=== PATIENT | female | born 1970 | race Caucasian/White ===

== ENCOUNTER 2016-11-04 04:55 | Emergency (ER) | payer OTHER ==
--- NOTE | 2016-11-04 05:49 | ED NURSING NOTES ---
Clinical Report - Nurses [facility] [address] [place] [address] 11/04/2016 4:56 Patient: PATY MARTÍNEZ TRIAGE Triage time 05:02. Acuity: LEVEL 4. Chief Complaint: BACK PAIN. 05:07. Alert. SEPSIS SCREEN: Sepsis Screen. Negative (no infection suspected/documented). --05:08 Shashank Wilson R.N. 05:02 11/04/16. BP: 154/77. HR: 83. RR: 17. O2 saturation: 98% on room air. Temp: 98.3 F (oral). Pain level now: 04/02. --05:08 Shashank Wilson R.N. Weight: 136 kg stated. Height/Length: 62 inches Per Patient. BMI: 54.9. --05:06 Shashank Wilson R.N. Medications None. --05:03 Shashank Wilson R.N. Medication/allergy information source: the patient. --05:08 Shashank Wilson R.N. Allergies CONTRAST DYE. --05:03 Shashank Wilson R.N. History Arrived by private vehicle. Historian: patient. Accompanied by family. Primary physician (Abdirashid). Onset. (about 0200). ( Patient reports waking up with left sided low back pain). No history of recent trauma. Treatment MEDICAL TRANSPORT SPECIALIST: None. PAST MEDICAL HX: Tetanus status: up-to-date. Immunizations: up-to-date. The patient is post-menopausal. SOCIAL HX: Former smoker, end date 1996. No alcohol use or drug use. No infectious disease exposure. ABUSE ASSESSMENT: No report of abuse. FALL RISK ASSESSMENT: Fall risk assessment completed. No fall risk identified. NUTRITIONAL RISK ASSESSMENT: The nutritional risk assessment revealed no deficiencies. FUNCTIONAL ASSESSMENT: Functional assessment: no impairments noted. LEARNING NEEDS ASSESSMENT: The learning needs assessment revealed no barriers. SKIN INTEGRITY ASSESSMENT: Skin integrity risk assessment completed. No skin integrity risk identified. --05:08 Shashank Wilson R.N. PROBLEMS: Bronchitis. Abscess. DVT - Deep Venous Thrombosis. UTI - Urinary Tract Infection. --05:04 Shashank Wilson R.N. Obesity. --05:07 Shashank Wilson R.N. ADDITIONAL SURGERIES: Bariatric Surgery. Hip Surgery. Knee Surgery. --05:04 Shashank Wilson R.N. Interventions ID band on patient. To treatment room. --05:08 Shashank Wilson R.N. PHYSICAL ASSESSMENT 05:08. To room via wheelchair. GENERAL / NEURO / PSYCH: Alert. Oriented X 4. RESPIRATORY: Respirations not labored. EXTREMITIES: Sensation intact in extremities. ROM of extremities within normal limits. --05:08 Shashank Wilson R.N. NURSING PROGRESS NOTES 05:08. Two patient identifiers checked. Call light placed in reach. Bed placed in lowest position. Brakes of bed on. Patient ready for evaluation- chart flagged. --05:08 Shashank Wilson R.N. 05:25 11/04/2016 Zofran ODT (Ondansetron) PO 4 mg given. Allergies verified and confirmed 5 rights. --05:29 Shsahank Wilson R.N. 05:27 11/04/2016 Toradol (Ketorolac Tromethamine) IM 60 mg given. Given in the right ventral gluteus. Allergies verified and confirmed 5 rights. --05:29 Shashank Wilson R.N. DISPOSITION / DISCHARGE 06:09 11/04/16. Condition at departure: unchanged. No learning barriers present. Discharge instructions provided and reviewed with the patient. Reviewed medication(s) side effects, precautions, dosing and course information. Prescription(s) given to the patient. Activity restrictions (light lifting) reviewed (over 10 pounds). Patient verbalized understanding. Written instructions provided in Kinyarwanda. The patient was discharged by the physician. She was discharged home and accompanied by family. She left the Emergency Department ambulatory and via private vehicle. Dining Room Coordinator driving. --06:09 Amparo Casiano R.N. 06:06 11/04/16. BP: 128/76 (regular adult cuff) taken on the left arm. HR: 84. RR: 20. O2 saturation: 100% on room air. Temp: 100.1 F (oral). Pain level now: 5/10. Additional comments: low back. --06:09 Amparo Casiano R.N. 06:09 11/04/16. ( Dr Olivo knows about 100.1 and ok to IA). --06:09 Amparo Casiano R.N. Departure time: 06:15 Nov 04 2016. --06:17 Amparo Casiano R.N. Locked/Released at 11/04/2016 6:18 by Amparo Casiano R.N.
--- NOTE | 2016-11-04 05:49 | ED NURSING NOTES ---
Clinical Report - Nurses [facility] [address] [place] [address] 11/04/2016 4:56 Patient: PAYT MARTÍNEZ TRIAGE Triage time 05:02. Acuity: LEVEL 4. Chief Complaint: BACK PAIN. 05:07. Alert. SEPSIS SCREEN: Sepsis Screen. Negative (no infection suspected/documented). --05:08 Shashank Wilson R.N. 05:02 11/04/16. BP: 154/77. HR: 83. RR: 17. O2 saturation: 98% on room air. Temp: 98.3 F (oral). Pain level now: 04/02. --05:08 Shashank Wilson R.N. Weight: 136 kg stated. Height/Length: 62 inches Per Patient. BMI: 54.9. --05:06 Shashank Wilson R.N. Medications None. --05:03 Shashank Wilson R.N. Medication/allergy information source: the patient. --05:08 Shahsank Wilson R.N. Allergies CONTRAST DYE. --05:03 Shashank Wilson R.N. History Arrived by private vehicle. Historian: patient. Accompanied by family. Primary physician (Abdirashid). Onset. (about 0200). ( Patient reports waking up with left sided low back pain). No history of recent trauma. Treatment WIRE STEWARD: None. PAST MEDICAL HX: Tetanus status: up-to-date. Immunizations: up-to-date. The patient is post-menopausal. SOCIAL HX: Former smoker, end date 1996. No alcohol use or drug use. No infectious disease exposure. ABUSE ASSESSMENT: No report of abuse. FALL RISK ASSESSMENT: Fall risk assessment completed. No fall risk identified. NUTRITIONAL RISK ASSESSMENT: The nutritional risk assessment revealed no deficiencies. FUNCTIONAL ASSESSMENT: Functional assessment: no impairments noted. LEARNING NEEDS ASSESSMENT: The learning needs assessment revealed no barriers. SKIN INTEGRITY ASSESSMENT: Skin integrity risk assessment completed. No skin integrity risk identified. --05:08 Shashank Wilson R.N. PROBLEMS: Bronchitis. Abscess. DVT - Deep Venous Thrombosis. UTI - Urinary Tract Infection. --05:04 Shashank Wilson R.N. Obesity. --05:07 Shashank Wilson R.N. ADDITIONAL SURGERIES: Bariatric Surgery. Hip Surgery. Knee Surgery. --05:04 Shashank Wilson R.N. Interventions ID band on patient. To treatment room. --05:08 Shashank Wilson R.N. PHYSICAL ASSESSMENT 05:08. To room via wheelchair. GENERAL / NEURO / PSYCH: Alert. Oriented X 4. RESPIRATORY: Respirations not labored. EXTREMITIES: Sensation intact in extremities. ROM of extremities within normal limits. --05:08 Shashank Wilson R.N. NURSING PROGRESS NOTES 05:08. Two patient identifiers checked. Call light placed in reach. Bed placed in lowest position. Brakes of bed on. Patient ready for evaluation- chart flagged. --05:08 Shashank Wilson R.N. 05:25 11/04/2016 Zofran ODT (Ondansetron) PO 4 mg given. Allergies verified and confirmed 5 rights. --05:29 Shashank Wilson R.N. 05:27 11/04/2016 Toradol (Ketorolac Tromethamine) IM 60 mg given. Given in the right ventral gluteus. Allergies verified and confirmed 5 rights. --05:29 Shashank Wilson R.N. DISPOSITION / DISCHARGE 06:09 11/04/16. Condition at departure: unchanged. No learning barriers present. Discharge instructions provided and reviewed with the patient. Reviewed medication(s) side effects, precautions, dosing and course information. Prescription(s) given to the patient. Activity restrictions (light lifting) reviewed (over 10 pounds). Patient verbalized understanding. Written instructions provided in Bulgarian. The patient was discharged by the physician. She was discharged home and accompanied by family. She left the Emergency Department ambulatory and via private vehicle. [employer] Middleware Architect driving. --06:09 Amparo Casiano R.N. 06:06 11/04/16. BP: 128/76 (regular adult cuff) taken on the left arm. HR: 84. RR: 20. O2 saturation: 100% on room air. Temp: 100.1 F (oral). Pain level now: 5/10. Additional comments: low back. --06:09 Amparo Casiano R.N. 06:09 11/04/16. ( Dr Olivo knows about 100.1 and ok to [place]). --06:09 Amparo Casiano R.N. Departure time: 06:15 Nov 04 2016. --06:17 Amparo Casiano R.N. Locked/Released at 11/04/2016 6:18 by Amparo aCsiano R.N.
--- NOTE | 2016-11-04 05:49 | ED CLINICAL REPORT ---
Clinical Report - Physicians/Mid Levels [facility] [address] [place] [address] 11/04/2016 4:56 Patient: PATY MARTÍNEZ Time Seen: 05:03; initial patient contact. Arrived- By private vehicle. Historian- patient. HISTORY OF PRESENT ILLNESS Chief Complaint: BACK PAIN. Onset was today and it is still present. It was abrupt in onset and has been constant. It is described as being moderate in degree and in the area of the left lower lumbar spine and lower lumbar spine. The quality is noted to be sharp. No radiation. Modifying factors- worsened by bending over and lifting. Not relieved by anything. No bladder dysfunction, bowel dysfunction, sensory loss or motor loss. Patient denies an injury but injury to the head or neck. Similar symptoms previously: None. Recent medical care: Not recently seen/assessed. REVIEW OF SYSTEMS No fever, difficulty with urination or vomiting. She has had chills and nausea. All systems otherwise negative, except as recorded above. PAST HISTORY Bronchitis. Abscess. DVT - Deep Venous Thrombosis. UTI - Urinary Tract Infection. Obesity. SURGERIES: Bariatric Surgery. Hip Surgery. Knee Surgery. SOCIAL HISTORY Former smoker. No alcohol use or drug use. ADDITIONAL NOTES The nursing notes have been reviewed. PHYSICAL EXAM Vital Signs: 11/04/2016 05:02 BP: 154/77. HR: 83. RR: 17. O2 saturation: 98%. Temp: 98.3 F. Pain level now: 10. Have been reviewed. Hypertensive. Heart rate normal. Respiratory rate normal. Temperature normal. Oxygen saturation normal. Appearance: Alert. No acute distress. Back: Moderate muscle spasm of the left posterior back. Moderate soft tissue tenderness in the left lower lumbar area. Mildly limited ROM in the back- in the lumbar spine: decreased flexion. No vertebral point tenderness. Neuro: Oriented X 3. Mood/affect normal. No motor deficit. No sensory deficit. Straight leg raising: negative on the right and negative on the left. PROGRESS AND PROCEDURES Disposition: Discharged home in good and improved condition. Condition: good. CLINICAL IMPRESSION Acute lumbar strain. INSTRUCTIONS No lifting greater than 10 lbs. Your Current Medications: CONTINUE TAKING THE FOLLOWING MEDICATIONS: None*. Prescription Medications: Baclofen 10 mg: take 1 orally every 8 hours. Dispense twenty (20). No refills. Diclofenac 50 mg tablets: take 1 tablet orally every 8 hours as needed for pain or stiffness. Dispense thirty (30). No refill. Follow-up: Follow up with your doctor in about two days. Call for an appointment. Screening today revealed the patient's blood pressure to be in the hypertensive range. The patient should follow up with a primary care provider for blood pressure management. (Electronically signed by Cheko Olivo Dr. 11/04/2016 6:42)
--- NOTE | 2016-11-04 05:49 | ED ORDER SUMMARY ---
..... Patient: PATY MARTÍNEZ OrderSheet [facility] VisitID: [id number] [address] [place] [address] 46y, F Registration Date/Time: 11/04/2016 ORDER SHEET Weight: 136.0 kg (stated) Allergies: CONTRAST DYE GENERAL ORDERS: MEDICATION ORDERS: Toradol IM 60 mg (NOW) (05:16 11/04/2016 Rick Westbrook) (Ack 5:23 JQuivey R.N.) (5:29 JQuivey R.N.) Zofran ODT PO 4 mg (NOW) (05:24 11/04/2016 JQuivey R.N. verbal order read back to Rick Westbrook) (Ack 5:24 JQuivey R.N.) (5:29 JQuivey R.N.) IV FLUIDS: ORDER SHEET NOTES: [Electronically signed by Amparo Casiano R.N. (06:18 11/04/2016)] [Electronically signed by Cheko Olivo Dr. (06:42 11/04/2016)] [Electronically locked/signed by Amparo Casiano R.N. (06:18 11/04/2016)]
--- NOTE | 2016-11-04 05:49 | ED ORDER SUMMARY ---
..... Patient: PATY MARTÍNEZ OrderSheet [facility] VisitID: [id number] [address] [place] [address] 46y, F Registration Date/Time: 11/04/2016 ORDER SHEET Weight: 136.0 kg (stated) Allergies: CONTRAST DYE GENERAL ORDERS: MEDICATION ORDERS: Toradol IM 60 mg (NOW) (05:16 11/04/2016 Rick Westbrook) (Ack 5:23 JQuivey R.N.) (5:29 JQuivey R.N.) Zofran ODT PO 4 mg (NOW) (05:24 11/04/2016 JQuivey R.N. verbal order read back to Rick Westbrook) (Ack 5:24 JQuivey R.N.) (5:29 JQuivey R.N.) IV FLUIDS: ORDER SHEET NOTES: [Electronically signed by Amparo Casiano R.N. (06:18 11/04/2016)] [Electronically signed by Cheko Olivo Dr. (06:42 11/04/2016)] [Electronically locked/signed by Amparo Casiano R.N. (06:18 11/04/2016)]
--- NOTE | 2016-11-04 05:49 | ED CLINICAL REPORT ---
Clinical Report - Physicians/Mid Levels [facility] [address] [place] [address] 11/04/2016 4:56 Patient: PATY MARTÍNEZ Time Seen: 05:03; initial patient contact. Arrived- By private vehicle. Historian- patient. HISTORY OF PRESENT ILLNESS Chief Complaint: BACK PAIN. Onset was today and it is still present. It was abrupt in onset and has been constant. It is described as being moderate in degree and in the area of the left lower lumbar spine and lower lumbar spine. The quality is noted to be sharp. No radiation. Modifying factors- worsened by bending over and lifting. Not relieved by anything. No bladder dysfunction, bowel dysfunction, sensory loss or motor loss. Patient denies an injury but injury to the head or neck. Similar symptoms previously: None. Recent medical care: Not recently seen/assessed. REVIEW OF SYSTEMS No fever, difficulty with urination or vomiting. She has had chills and nausea. All systems otherwise negative, except as recorded above. PAST HISTORY Bronchitis. Abscess. DVT - Deep Venous Thrombosis. UTI - Urinary Tract Infection. Obesity. SURGERIES: Bariatric Surgery. Hip Surgery. Knee Surgery. SOCIAL HISTORY Former smoker. No alcohol use or drug use. ADDITIONAL NOTES The nursing notes have been reviewed. PHYSICAL EXAM Vital Signs: 11/04/2016 05:02 BP: 154/77. HR: 83. RR: 17. O2 saturation: 98%. Temp: 98.3 F. Pain level now: 10. Have been reviewed. Hypertensive. Heart rate normal. Respiratory rate normal. Temperature normal. Oxygen saturation normal. Appearance: Alert. No acute distress. Back: Moderate muscle spasm of the left posterior back. Moderate soft tissue tenderness in the left lower lumbar area. Mildly limited ROM in the back- in the lumbar spine: decreased flexion. No vertebral point tenderness. Neuro: Oriented X 3. Mood/affect normal. No motor deficit. No sensory deficit. Straight leg raising: negative on the right and negative on the left. PROGRESS AND PROCEDURES Disposition: Discharged home in good and improved condition. Condition: good. CLINICAL IMPRESSION Acute lumbar strain. INSTRUCTIONS No lifting greater than 10 lbs. Your Current Medications: CONTINUE TAKING THE FOLLOWING MEDICATIONS: None*. Prescription Medications: Baclofen 10 mg: take 1 orally every 8 hours. Dispense twenty (20). No refills. Diclofenac 50 mg tablets: take 1 tablet orally every 8 hours as needed for pain or stiffness. Dispense thirty (30). No refill. Follow-up: Follow up with your doctor in about two days. Call for an appointment. Screening today revealed the patient's blood pressure to be in the hypertensive range. The patient should follow up with a primary care provider for blood pressure management. (Electronically signed by Cheko Olivo Dr. 11/04/2016 6:42)
--- NOTE | 2016-11-04 06:42 | ED MED RECONCILIATION SUMMARY ---
Patient: PTAY MARTÍNEZ Medication Reconciliation Report [facility] VisitID: [id number] [address] [place] [address] 46y, F Registration Date/Time: 11/04/2016 Weight: 136.0 kg Height/Length: 62 in. BMI: 54.9 ALLERGIES: CONTRAST DYE The patient's Home Medications are listed below: NONE. The source(s) of the original Home Medication information: patient The following Medications were given to the patient in the Emergency Department: Zofran ODT [PO] PO 4 mg, administered: 11/04/2016 5:25:00 AM Toradol [IM] IM 60 mg, administered: 11/04/2016 5:27:00 AM The following Medications were prescribed to the patient: Baclofen 10 mg: take 1 orally every 8 hours. Dispense twenty (20). No refills. -- Cheko Olivo Dr. Diclofenac 50 mg tablets: take 1 tablet orally every 8 hours as needed for pain or stiffness. Dispense thirty (30). No refill. -- Cheko Olivo Dr.
--- NOTE | 2016-11-04 06:42 | ED MAR SUMMARY ---
..... Medication Administration Record [facility] [address] [place] [address] Patient: PATY MARTÍNEZ Visit ID: [id number] 46y, F Weight: 136.0 kg Height/Length: 62 in BMI: 54.9 ALLERGIES: CONTRAST DYE Given 05:25 11/04/2016 Shashank Wilson, R.N. Medication Administered: ZOFRAN ODT [PO] (ONDANSETRON), Dose: 4 mg PO. Medication Ordered: Zofran ODT PO 4 mg (NOW). Given 05:27 11/04/2016 Shashank Wilson, R.N. Medication Administered: TORADOL [IM] (KETOROLAC TROMETHAMINE), Dose: 60 mg IM. Medication Ordered: Toradol IM 60 mg (NOW).
--- NOTE | 2016-11-04 06:42 | ED MED RECONCILIATION SUMMARY ---
Patient: PATY MARTÍNEZ Medication Reconciliation Report [facility] VisitID: [id number] [address] [place] [address] 46y, F Registration Date/Time: 11/04/2016 Weight: 136.0 kg Height/Length: 62 in. BMI: 54.9 ALLERGIES: CONTRAST DYE The patient's Home Medications are listed below: NONE. The source(s) of the original Home Medication information: patient The following Medications were given to the patient in the Emergency Department: Zofran ODT [PO] PO 4 mg, administered: 11/04/2016 5:25:00 AM Toradol [IM] IM 60 mg, administered: 11/04/2016 5:27:00 AM The following Medications were prescribed to the patient: Baclofen 10 mg: take 1 orally every 8 hours. Dispense twenty (20). No refills. -- Cheko Olivo Dr. Diclofenac 50 mg tablets: take 1 tablet orally every 8 hours as needed for pain or stiffness. Dispense thirty (30). No refill. -- Cheko Olivo Dr.
--- NOTE | 2016-11-04 06:42 | ED MAR SUMMARY ---
..... Medication Administration Record [facility] [address] [address] Patient: PATY MARTÍNEZ Visit ID: [id number] 46y, F Weight: 136.0 kg Height/Length: 62 in BMI: 54.9 ALLERGIES: CONTRAST DYE Given 05:25 11/04/2016 Shashank Wilson, R.N. Medication Administered: ZOFRAN ODT [PO] (ONDANSETRON), Dose: 4 mg PO. Medication Ordered: Zofran ODT PO 4 mg (NOW). Given 05:27 11/04/2016 Shashank Wilson, R.N. Medication Administered: TORADOL [IM] (KETOROLAC TROMETHAMINE), Dose: 60 mg IM. Medication Ordered: Toradol IM 60 mg (NOW).
--- NOTE | 2016-11-04 06:42 | ED DISCHARGE INSTRUCTIONS ---
Patient: PATY MARTÍNEZ General Instructions [facility] VisitID: [id number] [place] [address] 46y, F Registration Date/Time: 11/04/2016 Acute lumbar strain. INSTRUCTIONS No lifting greater than 10 lbs. Your Current Medications: CONTINUE TAKING THE FOLLOWING MEDICATIONS: None*. Prescription Medications: Baclofen 10 mg: take 1 orally every 8 hours. Dispense twenty (20). No refills. Diclofenac 50 mg tablets: take 1 tablet orally every 8 hours as needed for pain or stiffness. Dispense thirty (30). No refill. Follow-up: Follow up with your doctor in about two days. Call for an appointment. Screening today revealed the patient's blood pressure to be in the hypertensive range. The patient should follow up with a primary care provider for blood pressure management. ADDITIONAL INFORMATION Back Pain [Acute Or Chronic] Back pain is usually caused by an injury to the muscles or ligaments of the spine. Sometimes the disks that separate each bone in the spine may bulge and cause pain by pressing on a nearby nerve. Back pain may also appear after a sudden twisting/bending force (such as in a car accident), after a simple awkward movement, or lifting something heavy with poor body positioning. In either case, muscle spasm is often present and adds to the pain. Acute back pain usually gets better in one to two weeks. Back pain related to disk disease, arthritis in the spinal joints or spinal stenosis (narrowing of the spinal canal) can become chronic and last for months or years. Unless you had a physical injury (for example, a car accident or fall) X-rays are usually not ordered for the initial evaluation of back pain. If pain continues and does not respond to medical treatment, x-rays and other tests may be performed at a later time. Home Care: You may need to stay in bed the first few days. But, as soon as possible, begin sitting or walking to avoid problems with prolonged bed rest (muscle weakness, worsening back stiffness and pain, blood clots in the legs). When in bed, try to find a position of comfort. A firm mattress is best. Try lying flat on your back with pillows under your knees. You can also try lying on your side with your knees bent up towards your chest and a pillow between your knees. Avoid prolonged sitting. This puts more stress on the lower back than standing or walking. During the first two days after injury, apply an ICE PACK to the painful area for 20 minutes every 2-4 hours. This will reduce swelling and pain. HEAT (hot shower, hot bath or heating pad) works well for muscle spasm. You can start with ice, then switch to heat after two days. Some patients feel best alternating ice and heat treatments. Use the one method that feels the best to you. You may use acetaminophen (Tylenol) or ibuprofen (Motrin, Advil) to control pain, unless another pain medicine was prescribed. [NOTE: If you have chronic liver or kidney disease or ever had a stomach ulcer or GI bleeding, talk with your doctor before using these medicines.] Be aware of safe lifting methods and do not lift anything over 15 pounds until all the pain is gone. Follow Up with your doctor or this facility if your symptoms do not start to improve after one week. Physical therapy may be needed. [NOTE: If X-rays were taken, they will be reviewed by a radiologist. You will be notified of any new findings that may affect your care.] Get Prompt Medical Attention if any of the following occur: Pain becomes worse or spreads to your legs Weakness or numbness in one or both legs Loss of bowel or bladder control Numbness in the groin or genital area You have been given the following additional information: Back Pain (Acute Or Chronic) No lifting greater than 10 lbs. (Electronically signed by Cheko Olivo Dr. 11/04/2016 6:42)
== END 2016-11-04 06:15 | disposition home or self-care (01) ==
LOC: ED SRH 04:55
DX: S39.012A Strain of muscle, fascia and tendon of lower back, initial encounter (principal); X58.XXXA Exposure to other specified factors, initial encounter; Y93.9 Activity, unspecified; Y92.9 Unspecified place or not applicable; Y99.9 Unspecified external cause status

== ENCOUNTER 2016-11-05 19:46 | Inpatient (IN) | payer OTHER ==
[~2016-11-05] VITALS: Ht 157.5 cm; Wt 117.1 kg
--- NOTE | 2016-11-05 22:13 | ED ORDER SUMMARY ---
..... Patient: PATY MARTÍNEZ OrderSheet [facility] VisitID: [id number] [place] [address] 46y, F Registration Date/Time: 11/05/2016 ORDER SHEET Weight: 113.3 kg Allergies: CONTRAST DYE GENERAL ORDERS: CBC w Diff Urgent (20:10 11/05/2016 TBowen R.N. per protocol) (20:22 TBowen R.N.) CMP Urgent (20:11/05/2016 TBowen R.N. per protocol) (20:22 TBowen R.N.) UA-Culture if indicated Urgent (20:11/05/2016 TBowen R.N. per protocol) (20:22 TBowen R.N.) Chest 2V Urgent (20:26 11/05/2016 Gordo WOOD) (20:51 MCampbell) Blood Culture (No) (N/A) Urgent (20:26 11/05/2016 Gordo WOOD) (20:38 TBowen R.N.) CRP Urgent (20:40 11/05/2016 Gordo WOOD) (20:53 TBowen R.N.) Lactate, Serum Urgent (20:40 11/05/2016 Gordo WOOD) (20:53 TBowen R.N.) PCT (Procalcitonin) Urgent (20:40 11/05/2016 Gordo WOOD) (20:53 TBowen R.N.) CT Abd/Pel w Cont (Yes) (1.0) Urgent (22:01 11/05/2016 Gordo WOOD) (Ack 22:13 Zachariah) (Cancelled: [id number] Gordo WOOD) Urine Drug Screen Urgent (22:05 11/05/2016 Gordo WOOD) (Ack 22:13 Zachariah) (23:22 MCook R.N.) ABG (G) Urgent (22:21 11/05/2016 Gordo WOOD) (Ack 22:44 Zachariah) (23:30 MCook R.N.) CT Abd/Pel wo Cont Urgent (22:43 11/05/2016 Gordo WOOD) (Ack 22:44 Zachariah) (23:06 MCampbell) Rapid Influenza Screen (Nasal Pharyngeal) (swab) Urgent (22:45 11/05/2016 Gordo WOOD) (Ack 23:02 Zachariah) (23:30 MCjoek R.N.) Lipase Urgent (22:48 11/05/2016 Gordo WOOD) (Ack 23:02 Zachariah) (23:22 MCook R.N.) MEDICATION ORDERS: Tylenol PO 1,000 mg (NOW) (20:26 11/05/2016 Gordo WOOD) (20:39 TBowen R.N.) IV FLUIDS: IV NS : initial bolus none -, then 500 mL/hr for 4h (NOW); Routine (20:26 11/05/2016 Gordo WOOD) (20:39 TBowen R.N.) Levaquin IV 750 mg/150 mL (NOW) (20:40 11/05/2016 Gordo WOOD) (21:03 TBowen R.N.) Vancomycin IV 25 mg/kg (NOW) (20:55 11/05/2016 Gordo WOOD) (Ack 21:30 TBowen R.N.) (22:31 TBowen R.N.) Zofran IV 4 mg (NOW) (23:47 11/05/2016 Mustapha WOOD) (23:52 MCook R.N.) IV NS : initial bolus 1000 mL (1000 mL/hr), then none - for X1 (NOW) (23:52 11/05/2016 MCook R.N. verbal order read back to Gordo WOOD) (23:53 MCook R.N.) ORDER SHEET NOTES: [Electronically signed by Shashank Wilson R.N. (03:27 11/06/2016)] [Electronically signed by Lonnie Khan MD (20:41 11/06/2016)] [Electronically locked/signed by Shashank Wilson R.N. (03:27 11/06/2016)]
--- NOTE | 2016-11-05 22:13 | ED CLINICAL REPORT ---
Clinical Report - Physicians/Mid Levels [facility] [address] [place] [address] 11/05/2016 19:45 Patient: PATY MARTÍNEZ Time Seen: 20:30. Arrived- By private vehicle. Historian- patient. CPT: Critical care < 74 min plus (#[id number]) and 30-74 min plus (#[id number]). HISTORY OF PRESENT ILLNESS Chief Complaint: FLANK PAIN. 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 and is still present. It is described as "pain" and it is described as located in the right flank, the left flank and the left side of the back. At its maximum, severity described as moderate. When seen in the E.D., severity described as moderate. Modifying factors. Not worsened by anything. Not relieved by anything. The patient has had nausea. Similar symptoms previously: None. Recent medical care: The patient was seen recently at this facility in the emergency department (2 days ago). Seen for back pain only. Diagnosis: (back strain.). REVIEW OF SYSTEMS No constipation, black stools, hematemesis, difficulty with urination or pain with urination. No urinary frequency, sore throat or throat, chest pain or difficulty breathing. No cough, joint pain, skin rash or easy bruising. The patient has had fever, chills, back pain, weakness, and diabetic symptoms. She has had difficulty walking. All systems otherwise negative, except as recorded above. PAST HISTORY Bronchitis. Abscess. DVT - Deep Venous Thrombosis. UTI - Urinary Tract Infection. Obesity. SURGERIES: Bariatric Surgery. Hip Surgery. Knee Surgery. SOCIAL HISTORY Never smoker. Occasional alcohol use. No drug use. ADDITIONAL NOTES The nursing notes have been reviewed. PHYSICAL EXAM Vital Signs: 11/05/2016 20:06 BP: 149/86. HR: 118. RR: 22. O2 saturation: 100%. Temp: 103.1 F. Pain level now: 10/10. Appearance: Alert. Appears to be in pain. Patient in moderate distress. Eyes: Eyes normal inspection. ENT: Nose normal. Dry mucous membranes present. No pharyngeal erythema. Neck: Normal inspection. Neck supple. No carotid bruit, lymphadenopathy or meningeal signs. CVS: Tachycardia. Heart sounds normal. Pulses normal. Respiratory: No respiratory distress. Breath sounds normal. Chest nontender. Abdomen: Soft and nontender. Bowel sounds normal. Obese. Back: Moderate CVA tenderness on the right and left. Skin: Skin warm. Normal skin color. No rash. Extremities: Extremities exhibit normal ROM. No calf tenderness. No lower extremity edema. Neuro: Oriented X 3. No motor deficit. No sensory deficit. LABS, X-RAYS, AND EKG Chest X-ray: (Infiltrate ARLENE and left base.). Views: AP (portable). Technique: good. The X-rays were independently viewed by me and interpreted contemporaneously by me. A comparison with prior films reveals that the findings are new. Laboratory Tests: UA-Culture if indicated: (SATISH: 11/05/2016 20:00) ( [facility] 11/05/2016 21:11) Final results Test Result Flag Units (Reference) URINE COLOR YELLOW URINE APPEARANCE SL CLOUDY URINE GLUCOSE 3+ (NEGATIVE) URINE BILIRUBIN NEGATIVE (NEGATIVE) URINE KETONE NEGATIVE (NEGATIVE) URINE SPECIFIC GRAVITY 1.025 (1.010-1.030) URINE PH 5.5 (5.0-8.0) URINE PROTEIN 1+ (NEGATIVE) URINE UROBILINOGEN 1.0 EU/dL (0.2-1.0) URINE NITRITE NEGATIVE (NEGATIVE) URINE BLOOD 1+ (NEGATIVE) URINE LEUK ESTERASE NEGATIVE (NEGATIVE) URINE RBC RARE rbc/hpf (0-1) URINE WBC 0-1 wbc/hpf (0-1) URINE EPITHELIAL CELLS 0-1 EPI/hpf (0-5) URINE BACTERIA NONE SEEN (NONE SEEN) URINE COMMENT CULT NOT INDICATED 1+ AMORPHOUSURINE CULTURES ARE SET-UP BASED ON THE FOLLOWING CRITERIA:POSITIVE NITRITEPOSITIVE LEUKOCYTE ESTERASEGREATER THAN 10 WHITE BLOOD CELLSMODERATE (2+) OR GREATER BACTERIA CBC w Diff: (STAISH: 11/05/2016 20:20) ( [facility] 11/05/2016 21:42) Final results Test Result Flag Units (Reference) WHITE BLOOD COUNT 9.7 K/uL (4.5-11.5) RED BLOOD COUNT 4.60 M/uL (4.00-5.20) HEMOGLOBIN 12.7 gm/dL (12.0-16.0) HEMATOCRIT 38.7 % (36.0-46.0) MEAN CELL VOLUME 84 fL (80-100) MEAN CORPUSCULAR HGB 28 pg (26-34) MEAN CORPUSCULAR HGB CONC 33 g/dL (31-37) RED CELL DISTRIBUTION WIDTH 13.7 % (11.6-14.8) PLATELET COUNT 120 L K/uL (150-400) POLY % 55 % (50-75) BAND % 41 H % (0-8) LYMPH 3 L % (25-40) MONO 0 L % (3-14) EOSINOPHIL % 0 % (0-4) BASOPHIL % 0 % (0-2) METAMYELOCYTE % 1 % (0-1) MYELOCYTE 0 % (0-1) OTHER CELL TYPE 0 RBC MORPHOLOGY NORMOCHROMIC~~NORMOCYTIC [id number]: (SATISH: 11/05/2016 20:20) ( [facility] 11/05/2016 22:30) Final results Test Result Flag Units (Reference) C-REACTIVE PROTEIN < 0.2 mg/dL (0.0-0.9) Lactate, Serum: (SATISH: 11/05/2016 21:00) ( [facility] 11/05/2016 21:48) Final results Test Result Flag Units (Reference) LACTIC ACID 4.5 H mmol/L (0.4-2.0) CRITICAL RESULTS CALLEDCalled to JACQUE CALLAHAN, ER 11/05/16 2147Were 2 patient identifiers used? YWas the result read back? Y [id number]: (SATISH: 11/05/2016 20:20) ( [facility] 11/05/2016 21:57) Final results Test Result Flag Units (Reference) PROCALCITONIN 23.7 H ng/mL (0-0.5) PCT Concentration: Interpretation : Risk/option for action PCT <=0.5 ng/mL : Systemic : Low risk forinfection(sepsis): progression to severeis not likely. : systemic infection.Local bacterial : CAUTION-PCT levelsinfection is : below 0.5 ng/mL do notpossible. : exclude an infection,because localizedinfections (withoutsystemic signs) may beassociated with suchlow levels. If PCT ismeasured very earlyafter a bacterialchallenge (usually <6hours), these valuesmay still be low. Inthis case PCT shouldbe re-assessed 6-24hours later. PCT >0.5 and : Systemic infection: Moderate risk for<= 2 ng/mL : (sepsis) is : progression to severepossible, but : systemic infection.other conditions : The patient should beare known to : closely monitoredelevate PCT. : both clinically andby re-assessing PCTwithin 6-24 hours. PCT > 2 ng/mL : Systemic infection: High risk for(sepsis) is likely: progression to severeunless other : systemic infection.causes are known. : PCT >= 10 ng/mL : Important systemic: High likelihood ofinflammatory : severe sepsis orresponse, almost : septic shock.exclusively due to:severe bacterial :sepsis or septic :shock. : CMP: (SATISH: 11/05/2016 20:20) ( MsgRcvd 11/05/2016 21:07) Final results Test Result Flag Units (Reference) GLUCOSE 253 H mg/dL (70-110) BUN 22 H mg/dL (7-18) CREATININE 1.3 mg/dL (0.6-1.3) Estimated GFR 46.66 mL/min Estimated GFR- 56.56 mL/min Note: Persistent reduction over 3 months in eGFR<60 mL/min/1.73 m2 defines CKD. Patients with eGFR values>=60 mL/min/1.73 m2 may also have CKD if evidence ofpersistent proteinuria. Additional information may be foundat www.kidney.org. SODIUM 135 L mmol/L (136-145) POTASSIUM 4.0 mmol/L (3.5-5.1) CHLORIDE 99 mmol/L (98-107) CARBON DIOXIDE 21 mmol/L (21-32) CALCIUM 7.8 L mg/dL (8.5-10.1) TOTAL PROTEIN 8.1 g/dL (6.4-8.2) ALBUMIN 3.0 L g/dL (3.3-5.0) BILIRUBIN, TOTAL 1.4 H mg/dL (0.0-1.0) ALKALINE PHOSPHATASE 131 H U/L (46-116) AST (SGOT) 42 H U/L (15-37) ALT (SGPT) 25 U/L (12-78) . PROGRESS AND PROCEDURES Course of Care: IV NS BC times 2 Levaquin 750 mg IV Vancomycin 25mg /kg Tylenol 1g po Patient is stable. Critical care performed (120 minutes). Time is exclusive of separately billable procedures. Time includes: direct patient care, patient reassessment, coordination of patient care, interpretation of data (laboratory data, pulse oximetry, arterial blood gases, chest xrays and cardiac output measurements), review of patient's medical records, medical consultation and documentation of patient care. Procedures included in critical care time: peripheral IV placement and phlebotomy. Discussed case with on-call health care provider, (Nakul). Reviewed test results. Agreed upon treatment plan. Health care provider will see patient in ED. Patient/family counseled. Old medical records ordered. Disposition orders written. Disposition: Admitted to Acute Care. CLINICAL IMPRESSION Pneumonia Sepsis Back pain Diabetes. (Electronically signed by Lonnie Khan MD 11/06/2016 20:41)
--- NOTE | 2016-11-05 22:13 | ED CLINICAL REPORT ---
Clinical Report - Physicians/Mid Levels [facility] [address] [place] [address] 11/05/2016 19:45 Patient: PATY MARTÍNEZ Time Seen: 20:30. Arrived- By private vehicle. Historian- patient. CPT: Critical care < 74 min plus (#[id number]) and 30-74 min plus (#[id number]). HISTORY OF PRESENT ILLNESS Chief Complaint: FLANK PAIN. 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 and is still present. It is described as "pain" and it is described as located in the right flank, the left flank and the left side of the back. At its maximum, severity described as moderate. When seen in the E.D., severity described as moderate. Modifying factors. Not worsened by anything. Not relieved by anything. The patient has had nausea. Similar symptoms previously: None. Recent medical care: The patient was seen recently at this facility in the emergency department (2 days ago). Seen for back pain only. Diagnosis: (back strain.). REVIEW OF SYSTEMS No constipation, black stools, hematemesis, difficulty with urination or pain with urination. No urinary frequency, sore throat or throat, chest pain or difficulty breathing. No cough, joint pain, skin rash or easy bruising. The patient has had fever, chills, back pain, weakness, and diabetic symptoms. She has had difficulty walking. All systems otherwise negative, except as recorded above. PAST HISTORY Bronchitis. Abscess. DVT - Deep Venous Thrombosis. UTI - Urinary Tract Infection. Obesity. SURGERIES: Bariatric Surgery. Hip Surgery. Knee Surgery. SOCIAL HISTORY Never smoker. Occasional alcohol use. No drug use. ADDITIONAL NOTES The nursing notes have been reviewed. PHYSICAL EXAM Vital Signs: 11/05/2016 20:06 BP: 149/86. HR: 118. RR: 22. O2 saturation: 100%. Temp: 103.1 F. Pain level now: 10/10. Appearance: Alert. Appears to be in pain. Patient in moderate distress. Eyes: Eyes normal inspection. ENT: Nose normal. Dry mucous membranes present. No pharyngeal erythema. Neck: Normal inspection. Neck supple. No carotid bruit, lymphadenopathy or meningeal signs. CVS: Tachycardia. Heart sounds normal. Pulses normal. Respiratory: No respiratory distress. Breath sounds normal. Chest nontender. Abdomen: Soft and nontender. Bowel sounds normal. Obese. Back: Moderate CVA tenderness on the right and left. Skin: Skin warm. Normal skin color. No rash. Extremities: Extremities exhibit normal ROM. No calf tenderness. No lower extremity edema. Neuro: Oriented X 3. No motor deficit. No sensory deficit. LABS, X-RAYS, AND EKG Chest X-ray: (Infiltrate ARLENE and left base.). Views: AP (portable). Technique: good. The X-rays were independently viewed by me and interpreted contemporaneously by me. A comparison with prior films reveals that the findings are new. Laboratory Tests: UA-Culture if indicated: (SATISH: 11/05/2016 20:00) ( [facility] 11/05/2016 21:11) Final results Test Result Flag Units (Reference) URINE COLOR YELLOW URINE APPEARANCE SL CLOUDY URINE GLUCOSE 3+ (NEGATIVE) URINE BILIRUBIN NEGATIVE (NEGATIVE) URINE KETONE NEGATIVE (NEGATIVE) URINE SPECIFIC GRAVITY 1.025 (1.010-1.030) URINE PH 5.5 (5.0-8.0) URINE PROTEIN 1+ (NEGATIVE) URINE UROBILINOGEN 1.0 EU/dL (0.2-1.0) URINE NITRITE NEGATIVE (NEGATIVE) URINE BLOOD 1+ (NEGATIVE) URINE LEUK ESTERASE NEGATIVE (NEGATIVE) URINE RBC RARE rbc/hpf (0-1) URINE WBC 0-1 wbc/hpf (0-1) URINE EPITHELIAL CELLS 0-1 EPI/hpf (0-5) URINE BACTERIA NONE SEEN (NONE SEEN) URINE COMMENT CULT NOT INDICATED 1+ AMORPHOUSURINE CULTURES ARE SET-UP BASED ON THE FOLLOWING CRITERIA:POSITIVE NITRITEPOSITIVE LEUKOCYTE ESTERASEGREATER THAN 10 WHITE BLOOD CELLSMODERATE (2+) OR GREATER BACTERIA CBC w Diff: (SATISH: 11/05/2016 20:20) ( [facility] 11/05/2016 21:42) Final results Test Result Flag Units (Reference) WHITE BLOOD COUNT 9.7 K/uL (4.5-11.5) RED BLOOD COUNT 4.60 M/uL (4.00-5.20) HEMOGLOBIN 12.7 gm/dL (12.0-16.0) HEMATOCRIT 38.7 % (36.0-46.0) MEAN CELL VOLUME 84 fL (80-100) MEAN CORPUSCULAR HGB 28 pg (26-34) MEAN CORPUSCULAR HGB CONC 33 g/dL (31-37) RED CELL DISTRIBUTION WIDTH 13.7 % (11.6-14.8) PLATELET COUNT 120 L K/uL (150-400) POLY % 55 % (50-75) BAND % 41 H % (0-8) LYMPH 3 L % (25-40) MONO 0 L % (3-14) EOSINOPHIL % 0 % (0-4) BASOPHIL % 0 % (0-2) METAMYELOCYTE % 1 % (0-1) MYELOCYTE 0 % (0-1) OTHER CELL TYPE 0 RBC MORPHOLOGY NORMOCHROMIC~~NORMOCYTIC [id number]: (SATISH: 11/05/2016 20:20) ( [facility] 11/05/2016 22:30) Final results Test Result Flag Units (Reference) C-REACTIVE PROTEIN < 0.2 mg/dL (0.0-0.9) Lactate, Serum: (SATISH: 11/05/2016 21:00) ( [facility] 11/05/2016 21:48) Final results Test Result Flag Units (Reference) LACTIC ACID 4.5 H mmol/L (0.4-2.0) CRITICAL RESULTS CALLEDCalled to JACQUE CALLAHAN, ER 11/05/16 2147Were 2 patient identifiers used? YWas the result read back? Y [id number]: (SATISH: 11/05/2016 20:20) ( [facility] 11/05/2016 21:57) Final results Test Result Flag Units (Reference) PROCALCITONIN 23.7 H ng/mL (0-0.5) PCT Concentration: Interpretation : Risk/option for action PCT <=0.5 ng/mL : Systemic : Low risk forinfection(sepsis): progression to severeis not likely. : systemic infection.Local bacterial : CAUTION-PCT levelsinfection is : below 0.5 ng/mL do notpossible. : exclude an infection,because localizedinfections (withoutsystemic signs) may beassociated with suchlow levels. If PCT ismeasured very earlyafter a bacterialchallenge (usually <6hours), these valuesmay still be low. Inthis case PCT shouldbe re-assessed 6-24hours later. PCT >0.5 and : Systemic infection: Moderate risk for<= 2 ng/mL : (sepsis) is : progression to severepossible, but : systemic infection.other conditions : The patient should beare known to : closely monitoredelevate PCT. : both clinically andby re-assessing PCTwithin 6-24 hours. PCT > 2 ng/mL : Systemic infection: High risk for(sepsis) is likely: progression to severeunless other : systemic infection.causes are known. : PCT >= 10 ng/mL : Important systemic: High likelihood ofinflammatory : severe sepsis orresponse, almost : septic shock.exclusively due to:severe bacterial :sepsis or septic :shock. : CMP: (SATISH: 11/05/2016 20:20) ( MsgRcvd 11/05/2016 21:07) Final results Test Result Flag Units (Reference) GLUCOSE 253 H mg/dL (70-110) BUN 22 H mg/dL (7-18) CREATININE 1.3 mg/dL (0.6-1.3) Estimated GFR 46.66 mL/min Estimated GFR- 56.56 mL/min Note: Persistent reduction over 3 months in eGFR<60 mL/min/1.73 m2 defines CKD. Patients with eGFR values>=60 mL/min/1.73 m2 may also have CKD if evidence ofpersistent proteinuria. Additional information may be foundat www.kidney.org. SODIUM 135 L mmol/L (136-145) POTASSIUM 4.0 mmol/L (3.5-5.1) CHLORIDE 99 mmol/L (98-107) CARBON DIOXIDE 21 mmol/L (21-32) CALCIUM 7.8 L mg/dL (8.5-10.1) TOTAL PROTEIN 8.1 g/dL (6.4-8.2) ALBUMIN 3.0 L g/dL (3.3-5.0) BILIRUBIN, TOTAL 1.4 H mg/dL (0.0-1.0) ALKALINE PHOSPHATASE 131 H U/L (46-116) AST (SGOT) 42 H U/L (15-37) ALT (SGPT) 25 U/L (12-78) . PROGRESS AND PROCEDURES Course of Care: IV NS BC times 2 Levaquin 750 mg IV Vancomycin 25mg /kg Tylenol 1g po Patient is stable. Critical care performed (120 minutes). Time is exclusive of separately billable procedures. Time includes: direct patient care, patient reassessment, coordination of patient care, interpretation of data (laboratory data, pulse oximetry, arterial blood gases, chest xrays and cardiac output measurements), review of patient's medical records, medical consultation and documentation of patient care. Procedures included in critical care time: peripheral IV placement and phlebotomy. Discussed case with on-call health care provider, (Nakul). Reviewed test results. Agreed upon treatment plan. Health care provider will see patient in ED. Patient/family counseled. Old medical records ordered. Disposition orders written. Disposition: Admitted to Acute Care. CLINICAL IMPRESSION Pneumonia Sepsis Back pain Diabetes. (Electronically signed by Lonnie Khan MD 11/06/2016 20:41)
--- NOTE | 2016-11-05 22:13 | ED ORDER SUMMARY ---
..... Patient: PATY MARTÍNEZ OrderSheet [facility] VisitID: [id number] [place] [address] 46y, F Registration Date/Time: 11/05/2016 ORDER SHEET Weight: 113.3 kg Allergies: CONTRAST DYE GENERAL ORDERS: CBC w Diff Urgent (20:10 11/05/2016 TBowen R.N. per protocol) (20:22 TBowen R.N.) CMP Urgent (20:11/05/2016 TBowen R.N. per protocol) (20:22 TBowen R.N.) UA-Culture if indicated Urgent (20:11/05/2016 TBowen R.N. per protocol) (20:22 TBowen R.N.) Chest 2V Urgent (20:26 11/05/2016 Gordo WOOD) (20:51 MCampbell) Blood Culture (No) (N/A) Urgent (20:26 11/05/2016 Gordo WOOD) (20:38 TBowen R.N.) CRP Urgent (20:40 11/05/2016 Gordo WOOD) (20:53 TBowen R.N.) Lactate, Serum Urgent (20:40 11/05/2016 Gordo WOOD) (20:53 TBowen R.N.) PCT (Procalcitonin) Urgent (20:40 11/05/2016 Gordo WOOD) (20:53 TBowen R.N.) CT Abd/Pel w Cont (Yes) (1.0) Urgent (22:01 11/05/2016 Gordo WOOD) (Ack 22:13 Zachariah) (Cancelled: [id number] Gordo WOOD) Urine Drug Screen Urgent (22:05 11/05/2016 Gordo WOOD) (Ack 22:13 Zachariah) (23:22 MCook R.N.) ABG (G) Urgent (22:21 11/05/2016 Gordo WOOD) (Ack 22:44 Zachariah) (23:30 MCook R.N.) CT Abd/Pel wo Cont Urgent (22:43 11/05/2016 Gordo WOOD) (Ack 22:44 Zachariah) (23:06 MCampbell) Rapid Influenza Screen (Nasal Pharyngeal) (swab) Urgent (22:45 11/05/2016 Gordo WOOD) (Ack 23:02 Zachariah) (23:30 MCjoek R.N.) Lipase Urgent (22:48 11/05/2016 Gordo WOOD) (Ack 23:02 Zachariah) (23:22 MCook R.N.) MEDICATION ORDERS: Tylenol PO 1,000 mg (NOW) (20:26 11/05/2016 Gordo WOOD) (20:39 TBowen R.N.) IV FLUIDS: IV NS : initial bolus none -, then 500 mL/hr for 4h (NOW); Routine (20:26 11/05/2016 Gordo WOOD) (20:39 TBowen R.N.) Levaquin IV 750 mg/150 mL (NOW) (20:40 11/05/2016 Gordo WOOD) (21:03 TBowen R.N.) Vancomycin IV 25 mg/kg (NOW) (20:55 11/05/2016 Gordo WOOD) (Ack 21:30 TBowen R.N.) (22:31 TBowen R.N.) Zofran IV 4 mg (NOW) (23:47 11/05/2016 Mustapha WOOD) (23:52 MCook R.N.) IV NS : initial bolus 1000 mL (1000 mL/hr), then none - for X1 (NOW) (23:52 11/05/2016 MCook R.N. verbal order read back to Gordo WOOD) (23:53 MCook R.N.) ORDER SHEET NOTES: [Electronically signed by Shashank Wilson R.N. (03:27 11/06/2016)] [Electronically signed by Lonnie Khan MD (20:41 11/06/2016)] [Electronically locked/signed by Shashank Wilson R.N. (03:27 11/06/2016)]
--- NOTE | 2016-11-05 22:13 | ED NURSING NOTES ---
Clinical Report - Nurses [facility] [address] [place] [address] 11/05/2016 19:45 Patient: PATY MARTÍNEZ TRIAGE Triage time 20:06. Acuity: LEVEL 3. Chief Complaint: ABDOMINAL PAIN and NAUSEA. --20:09 VeronicaB, R.N. 20:06 11/05/16. BP: 149/86. HR: 118. RR: 22. O2 saturation: 100%. Temp: 103.1 F. Pain level now: 04/02. --20:09 VeronicaB, R.N. Weight: 113.3 kg. Height/Length: 62 inches. BMI: 45.7. --20:08 TonyaB, R.N. Medications None. --20:07 Yogesh R.N. Allergies CONTRAST DYE. --20:07 Yogesh R.N. History Arrived by private vehicle. Historian: patient. Accompanied by family. ( pt complains of abd pain, chills, n&V). Onset. (2 days ago). Treatment PIN INSERTER: None. PAST MEDICAL HX: Immunizations: up-to-date. The patient is post-menopausal. SOCIAL HX: Never smoker. Alcohol use. History of drug use. No recent travel. No infectious disease exposure. No known contact with a sick individual. SELF HARM ASSESSMENT: A self harm assessment was performed. The patient answered "no" to the question "Have you recently felt down, depressed, or hopeless?", "Have you noticed less interest or pleasure in doing things?", "Do you have thoughts of harming or killing yourself?", "Are you here because you tried to hurt yourself?", "Have you ever tried to hurt yourself before today?", "Have you recently had thoughts about harming or killing others?" and "Do you have any dangerous items in your possession?". FALL RISK ASSESSMENT: Fall risk assessment completed. No fall risk identified. NUTRITIONAL RISK ASSESSMENT: The nutritional risk assessment revealed no deficiencies. FUNCTIONAL ASSESSMENT: Functional assessment: no impairments noted. LEARNING NEEDS ASSESSMENT: The learning needs assessment revealed no barriers. ABUSE ASSESSMENT: Abuse assessment: The patient was asked "Do you feel safe in your home?". SKIN INTEGRITY ASSESSMENT: Skin integrity risk assessment completed. No skin integrity risk identified. --20:09 Daniel Zuñiga. PROBLEMS: Lumbar Strain. Obesity. Abnormal Test. Bronchitis. Abscess. Immunizations. Fall. Sprain. DVT - Deep Venous Thrombosis. UTI - Urinary Tract Infection. --20:07 Daniel Zuñiga. ADDITIONAL SURGERIES: Bariatric Surgery. Hip Surgery. Knee Surgery. --20: Daniel Zuñiga. Interventions ID band on patient. To treatment room. --20: Daniel Zuñiga. PHYSICAL ASSESSMENT To room via wheelchair. GENERAL / NEURO / PSYCH: Alert. Oriented X 4. Appears in no acute distress. Appears anxious. HEENT: Mucous membranes are pink. RESPIRATORY: Respirations not labored. Breath sounds within normal limits. CVS: Normal sinus rhythm noted. Capillary refill less than 2 seconds. GI / : The patient has had nausea. Emesis noted. Abdomen soft. Mass present in the abdominal region. Bowel sounds within normal limits. SKIN: Skin is warm and dry. --20:10 Daniel Zuñiga. NURSING PROGRESS NOTES Patient gowned. Patient identifiers checked. Call light placed in reach. Side rails up x 2. Bed placed in lowest position. Brakes of bed on. --20:10 Miky Zuñiga 20:21 11/05/2016 Site #1 started via IV in the left antecubital space with an 20g angiocath, with aseptic technique and good blood return; one attempt. Blood drawn: rainbow set. Labeled in the presence of the patient and sent to the lab. Saline lock flushed with 10 mL saline. --20:21 Miky Zuñiga Checked patient name and birthdate: patient confirmed. Instructions provided to collect clean catch urine and patient verbalized understanding. Clean catch urine collected with return of renu-colored cloudy urine; sample sent to lab for urinalysis and culture. Specimen labeled in the presence of the patient. --20:22 Miky Zuñiga 20:39 11/05/2016 Started bag #1 1000 mL IV Fluids IV NS (Saline); at 500 mL/hr over 2 hour(s) via site #1 via IV pump. Allergies verified and confirmed 5 rights. IV patency established. IV site checked: no pain, redness, or swelling. IV flushed thoroughly pre- and post-medication administration. --20:39 Miky Zuñiga 20:39 11/05/2016 Tylenol (Acetaminophen) PO 1000 mg given. Allergies verified and confirmed 5 rights. --20:39 Miky Zuñiga Patient transported to radiology by stretcher. --20:43 Miky Zuñiga 21:03 11/05/2016 Started 750 mg of Levaquin (Levofloxacin) IVPB; at 100 mL/hr over 1.5 hour(s) via site #1 via IV pump. Allergies verified and confirmed 5 rights. IV patency established. IV site checked: no pain, redness, or swelling. IV flushed thoroughly pre- and post-medication administration. --21:03 Miky Zuñiga Critical value relayed to ED by lab. Critical value received by Veronica. Lactate level: 4.5. Critical value read back. Verified lab result and patient ID. ED physician notifed of critical value. Orders were received. --21:49 Miky Zuñiga 22:13 11/05/16. BP: 107/52. HR: 128. RR: 20. O2 saturation: 99%. Temp: 99.6 F. Pain level now: 0/10. --22:14 Miky Zuñiga 22:11/05/2016 Started 2 gm of Vancomycin IVPB in bag #1 250 mL; at 250 mL/hr over 1 hour(s) via site #1 via IV pump. Allergies verified and confirmed 5 rights. IV patency established. IV site checked: no pain, redness, or swelling. IV flushed thoroughly pre- and post-medication administration. --22:31 Miky Zuñiga 22:11/05/2016 Levaquin IVPB Discontinued: bag #1 completed. Total amount infused: 150 mL. IV patency established. IV site checked: no pain, redness, or swelling. IV flushed thoroughly. --22:31 Miky Zuñiga Patient transported to CT by stretcher. --22:50 Miky Zuñiga Care transferred and report received (from SINDY Martin). --23:17 Igor Rosado R.N. Patient ID band checked for patient name and birthdate: patient confirmed. Flu swab obtained by RN via nasal swab. Labeled in the presence of the patient and sent to lab. --23:29 Igor Rosado R.N. 23:05 11/05/2016 Tylenol PO Response: no adverse reaction symptoms have improved. --23:30 Igor Rosado R.N. 23:38 11/05/2016 Vancomycin IVPB Discontinued: bag #1 infused. Total amount infused: 500 mL. IV patency established. IV site checked: no pain, redness, or swelling. IV flushed thoroughly. --23:38 Igor Rosado R.N. 23:42 11/05/2016 IV Fluids IV NS Discontinued: bag #1. Total amount infused: 1000 mL. IV patency established. IV site checked: no pain, redness, or swelling. IV flushed thoroughly. --23:42 Igor Rosado R.N. 23:38 11/05/16. BP: 91/50. HR: 121. RR: 20. O2 saturation: 98% on room air. Temp: 98.1 F. Pain level now: 12/01. --23:42 Igor Rosado R.N. 23:52 11/05/2016 Zofran (Ondansetron HCl) IVP 4 mg given over 2 minute(s) via site #1. Allergies verified and confirmed 5 rights. IV patency established. IV site checked: no pain, redness, or swelling. IV flushed thoroughly pre- and post-medication administration. IVP given by RN. --23:52 Igor Rosado R.N. 23:53 11/05/2016 Started bag #1 1000 mL IV Fluids IV NS (Saline); bolus of 1000 mL wide open via site #1 via IV pump. Allergies verified and confirmed 5 rights. IV patency established. IV site checked: no pain, redness, or swelling. IV flushed thoroughly pre- and post-medication administration. Completed per protocol. --23:53 Igor Rosado R.N. ( Pt nauseated, Zofran ordered and administered, monitoring VS. Pt hypotensive, Dr Mota aware, gave orders for a 1L IVF bolus.). --23:55 Igor Rosado R.N. 23:55 11/05/16. BP: 82/50. HR: 117. --23:55 Igor Rosado R.N. 00:15 11/06/2016 Zofran IVP Response: no adverse reaction symptoms have improved. --00:25 Igor Rosado R.N. 00:11/06/2016 Site #[address] upon admission; patent, no pain and no signs of infection or infiltration. --00:25 Igor Rosado R.N. 00:11/06/2016 IV Fluids IV NS Continued: upon admission at the rate of 1000 mL/hr. 900 mL remaining bag #2. IV patency established. IV site checked: no pain, redness, or swelling. IV flushed thoroughly. --00:25 Igor Rosado R.N. Intake & Output Other output: BM. --22:51 Miky Zuñiga DISPOSITION / DISCHARGE Report was given to a nurse via a phone call. Report included patient's care, treatment, medications, reviewed medication reconcilliation, and condition (including any recent changes or anticipated changes). All questions were answered. Report was acknowledged and care was transferred. --23:24 Miky Zuñiga Departure time: 00:20 Nov 06 2016. Admitted to Acute Care (209B). Report was given to a nurse via a phone call. (by Veronica before she left). ( Pt transported in stable condition, IVFB infusing upon transfer, Pt alert, cooperative, mother accompanied Pt up to room in wheelchair. New info relayed to accepting RN on AC (SINDY Can).). --00:24 Igor Rosado R.N. Locked/Released at 11/06/2016 3:27 by Shashank Wilson R.N.
--- NOTE | 2016-11-05 22:36 | DIAGNOSTIC IMAGING REPORT ---
PROCEDURE: XR CHEST 2 VIEW INDICATION: PNEUMONIA TECHNIQUE: Two views. COMPARISON: 03/30/2014 FINDINGS: The cardiomediastinal contour is stable, within normal limits. The central vasculature is not congested. Extensive coarsening of interstitial markings and moderate peribronchial thickening, particularly left upper lobe. Strandy density in the lingular region. No dense consolidations or effusions. No pneumothorax. Intact osseous structures. IMPRESSION: 1. Coarsening of the interstitial markings may reflect an interstitial pneumonitis, viral or atypical. 2. Underlying findings of mild bronchitis and atelectatic changes.
[2016-11-06] VITALS (19 sets, daily range): BP systolic 83–146; BP diastolic 43–98
--- NOTE | 2016-11-06 00:04 | DIAGNOSTIC IMAGING REPORT ---
PROCEDURE: CT ABDOMEN/PELVIS W/O CONTRAST INDICATION: ABDOMINAL PAIN TECHNIQUE: Axial CT images were obtained through the abdomen and pelvis without IV contrast. Coronal and sagittal reformations were created. COMPARISON: None. FINDINGS: Minor interstitial thickening at the left lung base. Normal sized heart. No hiatal hernia. Surgical changes of gastric bypass with gastrojejunal anastomosis. There is a large supraumbilical ventral hernia with a moderate-sized neck measuring approximately 5.7 cm in diameter containing the majority of the patient's small bowel and proximal colon. A small bowel anastomoses is present, partially with in the hernia sac. The distal colon is in an orthotopic position and decompressed. There are mild pericolonic inflammatory changes/fat stranding and fascial thickening along the pericolic gutter. No adjacent diverticula. There is a calcification in the left ureteropelvic junction measuring 6 x 8 mm. This results in mild left hydronephrosis and trace perinephric inflammation cranially. No other urinary calcifications. 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 There is a trapeze IVC filter in place. The spleen is at the upper limits of normal measuring 12.2 cm in length. The unenhanced liver, adrenal glands, and pancreas appears normal. Normal sized heart. No hiatal hernia. The gallbladder is absent. Normal caliber of the abdominal aorta. Mildly prominent periaortic lymph nodes. Surgical changes of left hip arthroplasty and superior acetabular repair cause streak artifact across the pelvis. The uterus is minimally enlarged. Ovaries are not well seen. The partially decompressed urinary bladder is grossly normal. No obvious free pelvic fluid or pelvic mass. Vertebral bodies are intact. No suspicious paraspinal mass. IMPRESSION: 1. 8 x 6 mm left ureteropelvic junction calcification causing mild left hydronephrosis. 2. Decompressed descending colon with a small amount of nonspecific pericolonic inflammatory changes and fascial thickening. Consider colitis, probably inflammatory or infectious. 3. Surgical changes of trapeze IVC filter, gastric bypass, cholecystectomy, and left hip arthroplasty with acetabular repair. 4. Large, small and large bowel containing, nonobstructive ventral abdominal wall hernia. 5. Findings called to the emergency room. All CT scans at this facility use dose modulation, iterative reconstruction, and/or weight-based dosing when appropriate to reduce radiation dose to as low as reasonably achievable.
--- NOTE | 2016-11-06 01:09 | NUR ---
PATIENT TO ROOM 209B, AMBULATED TO THE BED FROM THE [facility]. MOTHER AT BEDSIDE. PATIENT COMPLAINS OF 3/10 PAIN TO THE LEFT SIDED ABDOMEN, BP SLIGHTLY HYPOTENSIVE, TACYCARDIC. IVF INFUSING. PATIENT AWARE TO CALL IF SHE NEEDS TO USE THE BATHROOM. COMPLAINS OF NAUSEA WELL. SPOKE TO DR ARREAGA EARLIER, STATES ORDERS ARE BEING PUT IN.
--- NOTE | 2016-11-06 01:55 | Progress Note ---
Subjective General Admission History and Physical Examination Patient Name: Danuta Brown Admission Date: November 06, 2016 Primary Care Provider: Unknown Attending Physician: Yandel Trevino M.D. Admitting Physician: Az Moat M.D. Code Status: Full CODE Room: 209 SUBJECTIVE Historian: Self Reliability: Fair Chief Complaint: back pain Shortness of breath History of Present Illness: The patient is a 46-year-old white female with a PMH of history of Obesity, Depression, DVT who presented to [facility] emergency room on the day of admission with acute on chronic flank pain. Patient was also found to be short of breath and needing oxygen for a state of hypoxia., Pt. was seen in the [facility] ER for an evaluation and findings consistent with acute pain in the lower back, flank, kidney stone in the ureter calculi without hydra froze this, and infiltrates on chest x-ray. Patient is admitted with a potential pneumonia, poor upper airway control, intractable back pain and potential for ureter stone. Septic protocol with a moderate suspicion for sepsis. Patient is waxing and waning in hypotension with elevated heart rate. Patient was admitted with a fever. Secondarily the patient was admitted for further evaluation and treatment by Az Mota M.D. The patient is seen today in the emergency department. Patient appears to be uncomfortable and anxious. He reports nausea, vomiting and fever throughout the day. Patient was found febrile in the [facility] ED department. On arrival. Patient had an elevated pro-calcitonin and lactic acid. Patient was considered to have sepsis profile on admission. Patient had been seen in the emergency department 2 days ago for similar back pain. Urinalysis was essentially negative. Patient was sent home on a course of antibiotics. Patient has not had significant improvement, improved, in fact, became worse. Patient has had poor by mouth intake. PAST MEDICAL HISTORY Illnesses: Abscess. DVT - Deep Venous Thrombosis. UTI - Urinary Tract Infection. Obesity. Allergies: 1. No Known Drug Allergies Medications: Patient is currently on no medication History of warfarin last taken over a year ago. Surgery: Bariatric Surgery. Hip Surgery. Knee Surgery Injuries: Injuries Hospitalizations: Hospital at least one year ago August. FAMILY HISTORY Parents; Mother living Father unknown Other significant family history: None SOCIAL HISTORY 1. Marital Status: Single 2. Voodoo: Unknown 3. Education: uknown 4. Employment History: 5. Occupational health exposures: None known HABITS 1. Tobacco: None 2. Drugs: None 3. Alcohol: None 4. Caffeine: uknown none HEALTH SUPERVISION Item/Test 1. No recent health maintenance IMMUNIZATIONS: 1. Pneumococcal: Unknown 2. Influenza: Unknown 3. Tetanus: Unknown ADVANCED DIRECTIVES: 1. Living well: Yes 2. POLST: Home 3. Code Status: No code 4. Durable Power [employer]room [employer] 5. Donor card: No unknown REVIEW OF SYSTEMS Remarkable for those things stated in the history of present illness and past medical history. Seventeen point review of system completed with the following notable findings: Constitutional Fever, Weakness. Denies: Chills. Eyes Vision Change. Denies: Redness. ENT Nasal Discharge. Respiratory SOB w/exertion, Wheezing. Cardiovascular Palpitations. Denies: PND. Gastrointestinal Nausea, Abdominal Pain, Diarrhea. Genitourinary Denies: Dysuria. Musculoskeletal Shoulder Pain, Arm Pain. Skin Denies: Lesions. Neurological Denies: Incoordination. Physical Exam Vital Signs / I&Os Vital Signs Date Time Temp Pulse Resp B/P Pulse O2 O2 Flow FiO2 Ox Delivery Rate 11/06 0206 98.2 113 20 95/56 95 Room Air 11/06 0047 Room Air 11/06 0038 98.4 117 20 92/54 96 Room Air General Appearance Oriented X3, Cooperative, Mild distress HEENT EOMI Lungs basilar rales, rhonchi Neck Supple Cardiovascular No murmurs, gallops, rubs, regular irregular Abdomen tenderness abdominal all 4 quadrants, distention Extremities No edema, Normal pulses Skin No Rashes Neurological Normal speech, Normal tone Psych/Mental Status Mood normal LAB Results Laboratory Tests 11/05 Chemistry Plasma Sodium (136 - 145 mmol/L) 135 Plasma Potassium (3.5 - 5.1 mmol/L) 4.0 Plasma Chloride (98 - 107 mmol/L) 99 CO2 (Enzymatic) (21 - 32 mmol/L) 21 BUN (7 - 18 mg/dL) 22 Creatinine (0.6 - 1.3 mg/dL) 1.3 Est GFR ( Amer) (mL/min) 56.56 Est GFR (Non-Af Amer) (mL/min) 46.66 Glucose (70 - 110 mg/dL) 253 Plasma Calcium (8.5 - 10.1 mg/dL) 7.8 Total Bilirubin (0.0 - 1.0 mg/dL) 1.4 AST (15 - 37 U/L) 42 ALT (12 - 78 U/L) 25 Alkaline Phosphatase (46 - 116 U/L) 131 C-Reactive Protein (0.0 - 0.9 mg/dL) < 0.2 Total Protein (6.4 - 8.2 g/dL) 8.1 Albumin (3.3 - 5.0 g/dL) 3.0 Hematology WBC (4.5 - 11.5 K/uL) 9.7 RBC (4.00 - 5.20 M/uL) 4.60 Hgb (12.0 - 16.0 gm/dL) 12.7 Hct (36.0 - 46.0 %) 38.7 MCV (80 - 100 fL) 84 MCH (26 - 34 pg) 28 RDW (11.6 - 14.8 %) 13.7 Neut % (Auto) (50 - 75 %) 55 Lymph % (Auto) (25 - 40 %) 3 Geary % (Auto) (3 - 14 %) 0 Eos % (Auto) (0 - 4 %) 0 Baso % (Auto) (0 - 2 %) 0 Band Neutrophils % (0 - 8 %) 41 Metamyelocytes % (0 - 1 %) 1 Myelocytes (0 - 1 %) 0 Other Cell Type 0 Plt Count, EDTA (150 - 400 K/uL) 120 RBC Morphology (5463 A) NORMOCYTIC PUBS MCHC (31 - 37 g/dL) 33 Toxicology Urine Opiates Screen (NEGATIVE) NEGATIVE Urine Methadone Screen (NEGATIVE) NEGATIVE Ur Barbiturates Screen (NEGATIVE) NEGATIVE U Amphetamin/Meth Scrn (NEGATIVE) NEGATIVE MDMA (Ecstasy) Screen (NEGATIVE) NEGATIVE U Benzodiazepines Scrn (NEGATIVE) NEGATIVE Urine Cocaine Screen (NEGATIVE) NEGATIVE U Cannabinoids Screen (NEGATIVE) NEGATIVE Urines Urine Color YELLOW Urine Appearance SL CLOUDY Urine pH (5.0 - 8.0) 5.5 Ur Specific [place] (1.010 - 1.030) 1.025 Urine Protein (NEGATIVE) 1+ Urine Ketones (NEGATIVE) NEGATIVE Urine Blood (NEGATIVE) 1+ Urine Nitrite (NEGATIVE) NEGATIVE Urine Bilirubin (NEGATIVE) NEGATIVE Urine Urobilinogen (0.2 - 1.0 EU/dL) 1.0 Ur Leukocyte Esterase (NEGATIVE) NEGATIVE Urine RBC (0 - 1 rbc/hpf) RARE Urine WBC (0 - 1 wbc/hpf) 0-1 Ur Epithelial Cells (0 - 5 EPI/hpf) 0-1 Urine Bacteria (NONE SEEN) NONE SEEN Urine Glucose (NEGATIVE) 3+ Urine Comment CULT NOT INDICATED 11/05 Blood Gas Sample Site RR Total CO2 (24.0 - 30.0 mmol/L) 16.6 ABG pH (7.35 - 7.45) 7.44 ABG pCO2 at Pt Temp (35 - 45 mmHg) 23.5 ABG pO2 at Pt Temp (80.0 - 100.0 mmHg) 74.3 ABG HCO3 (20.0 - 26.0 mmol/L) 15.9 ABG O2 Sat Calc/Helga (95.1 - 100.0 %) 97.0 ABG Base Excess (-6.0 - -6.0 mmol/L) -7.3 ABG Reduced Hgb (%) 3.0 ABG Carboxyhemoglobin (0.5 - 1.5 %) 1.3 ABG Methemoglobin (0.4 - 1.5 %) 0.0 Jacob Test YES Other Total Hgb (12.0 - 16.0 g/dL) 11.5 A-a O2 Gradient (7.0 - 14.0 mmHg) 46.4 Hgb O2 Saturation (95.0 - 100.0 %) 95.7 Respiration Rate (/MIN) 20 Vent Mode NC FiO2 (20 - 101 %) 21 Chemistry Lactic Acid (0.4 - 2.0 mmol/L) 4.5 Lipase (73 - 393 U/L) 59 Procalcitonin (0 - 0.5 ng/mL) 23.7 Microbiology Date/Time Procedure - Status Source Growth 11/06 004 MRSA Screen - RECD NASAL 11/06 24 Influenza Screen - COMP NASALPHAR 11/05 2034 Blood Culture - RECD BLOOD Imaging Chest x-ray 1. Coarsening of the interstitial markings may reflect an interstitial pneumonitis, viral or atypical. 2. Underlying findings of mild bronchitis and atelectatic changes. CT abdomen and pelvis 1. 8 x 6 mm left ureteropelvic junction calcification causing mild left hydronephrosis. 2. Decompressed descending colon with a small amount of nonspecific pericolonic inflammatory changes and fascial thickening. Consider colitis, probably inflammatory or infectious. 3. Surgical changes of trapeze IVC filter, gastric bypass, cholecystectomy, and left hip arthroplasty with acetabular repair. 4. Large, small and large bowel containing, nonobstructive ventral abdominal wall hernia. Assessment and Plan Problem List 1. Sepsis Plan Patient is on sepsis protocol and rule out. Unknown origin of infection. Recurrent back and flank pain over the past few days. Seen in the emergency department short of breath, intractable back pain CT image the abdomen and pelvis, spine, showing no signs of spinal abscess or retroperitoneal abscess. There is evidence of a colitis; she is covered for any spontaneous perforation. Started on levofloxacin and ceftriaxone. She has a prolonged history of gastric bypass; this all together may be mildly mismanaged. Patient has not been appropriate nutrition. Iron studies, plus folic acid and B12, vitamin D Report and nutrition when available. 2. Pneumonia Plan Pneumonias discussed and reviewed. Chest x-ray showing coarsening interstitial markings. Likely pneumonitis. Upon bronchitis and atelectasis Continue the ceftriaxone and levofloxacin Watching for changes in weight. And progressive shortness of breath. Labs pro-calcitonin lactic acid. Antibiotics certainly ER approximately a hour after arrival He was given percussive time; 6 hours from the first Legionella and pneumococcus. Screening labs 3. Back pain Plan The back pain has been more or less intractable for the patient. Patient was seen here 2 days ago had some improvement in pain control. There is signs of the colitis but no diverticulitis. No signs of obstruction. Antibiotics are given including a levofloxacin, ceftriaxone. Order Legionella and pneumonia Urine test 4. Diabetes Plan Diabetes mellitus.; Signs of gastroparesis along with a probable colitis. ADA diet Monitor blood sugars on a monitor control plan. Hemoglobin A1c, lipid panel.; Current status: poor, unstable Anticipated discharge date: 3-4 days Anticipated discharge placement: Home Patient care time: Time spent in chart review, patient interview, physical exam, CPOE, and care documentation: 70 minutes Visit to patient today: 2 Complexity of care: moderate GI ppx DVT Ppx E&M Codes Admission: Inpt-High/11536
--- NOTE | 2016-11-06 05:41 | NUR ---
PATIENT AT THIS TIME DENIES ANY PAIN OR ANY NAUSEA/VOMITTING. IVF INFUSING. BP 90'S/50'S. HEART RATE DOWN TO 105 RANGE FROM THE 120'S. AMBULATED TO THE RESTROOM EARLIER WITH TWO PEOPLE ASSIST AND A WALKER. FAMILY AT BEDSIDE. WILL MONITOR.
--- NOTE | 2016-11-06 08:32 | NUR ---
CRITICAL LAB REPORT REC'D FROM LAB- K 2.8 LACTIC ACID 3.5 MD LUNA AND PT'S PRIMARY RN, ONIEL NOTIFIED.
--- NOTE | 2016-11-06 10:54 | NUR ---
NOTIFIED MD OF PATIENT STATUS, HYPOTENSIVE, DENIES DIZZINESS OR LIGHTHEADEDNESS, FLUID BOLUS STARTED, WILL RECHECK BP AFTER BOLUS INFUSED.
--- NOTE | 2016-11-06 12:05 | DIAGNOSTIC IMAGING REPORT ---
PROCEDURE: XR CHEST 1 VIEW INDICATION: hypoxia TECHNIQUE: Portable AP view 11:46 a.m. COMPARISON: Chest 03/30/1940 FINDINGS: There is cardiomegaly with pulmonary vascular congestion. No focal infiltrates. IMPRESSION: 1. CHF.
--- NOTE | 2016-11-06 12:05 | NUR ---
AWARE THAT PT. BP HAS BEEN LOW, RESPONDED WELL TO IV BOLUS... AT 1125 ENTERED PATIENT ROOM SHE IS SHIVERING AND RR 40 BPM, HER PAIN IS 8/10 AND SHE DESATTED INTO 60'S. PLACED ON OXYMASK, 02 SATS UP TO 92 ON 3L THEN DESATTED AGAIN TO LOW 80'S RAPID RESPONSE CALLED, WHILE RAPID TEAM ARRIVING PT. PLACED ON NON-REBREATHER MASK, THIS BROUGHT SATS UP TO 98-100%. PT. HAS BEEN ON CONTUNIOUS PULSE OX, AT 1150 IV MEROPENEM HUNG FROM PHARMACY, AT 1205 ATIVAN 0.5 MG ADMINISTERED AT 1205 AFTER PLACING MUSE WITH UROMETER, ONLY ABOUT 15CC REMOVED FROM BLADDER OF URINE AFTER MUSE PLACEMENT. PRIOR TO MUSE PLACEMENT PATIENT VOIDED (AROUND 11 A.M.) 25 CC URINE AND AFTER VOIDING BLADDER SCAN REVEALED 0. WCTM
--- NOTE | 2016-11-06 12:16 | NUR ---
NUTRITION NOTE: Pt admited last noc with dx/o back pain, sepsis, diabetes and PNA. Pt tolerated ~50% of cardiac diet this am. She is currently being transfered to ICU unit 2/2 rapid response. Noted referral for consult 2/2 "bariatric" and likely diabetes (A1c 6.3). Pt to appropriate for consult today. Will follow up with complete assessment/nutrition(diabetes/wt loss) education prior to d/c if warranted.
--- NOTE | 2016-11-06 12:17 | NUR ---
NOTIFIED DR. LUNA THAT PT. WAS ON D5NS, NOW JUST NS, AND IS NOW NPO, PER DR. LUNA STILL GIVE INSULIN ORDERED.
--- NOTE | 2016-11-06 13:44 | NUR ---
ARRIVED TO ROOM 305 AT THIS TIME. ALERT, TACHYPNIC AND TACHYCARDIC. O2 SATS ON 2LPM ON NC RUN 98-100%.
--- NOTE | 2016-11-06 14:23 | NUR ---
PATIENT TRANSFERRED TO ICU APPROXIMATELY 1 HOUR AGO, CALLED REPORT TO JENNY AT 1330, PATIENT UP STAIRS VIA WHEELCHAIR WITH ICU NURSE, STABLE, STILL TACHYCARDIC AND TACHYPNIC AT TIME OF TRANSFER, MD AWARE. PER PATIENT SHE IS FEELING BETTER AND ATIVAN WAS EFFECTIVE.
--- NOTE | 2016-11-06 17:29 | DIAGNOSTIC IMAGING REPORT ---
PROCEDURE: XR CHEST 1 VIEW INDICATION: PICC LINE PLACEMENT TECHNIQUE: Portable AP view 05:11 p.m. COMPARISON: Chest 1969 FINDINGS: Increasing pulmonary edema. There is a PICC line on the right and the tip is in the superior vena cava. IMPRESSION: 1. PICC line tip in the superior vena cava. 2. Increasing pulmonary edema. . 3. Results were called to the floor at 7734
--- NOTE | 2016-11-06 17:37 | NUR ---
TRANSFERED TO CCU DUE TO TACHYCARDIA AND TACHYPNEA. HR RUNS 120-130, RR 50-35, O2 SATS ON 2LPM 96-97%. BP RUNNING IN THE 80S, DOPAMINE GTT STARTED AT 3MCG/KG/MIN. PICC LINE PLACED. URINE OUTPUT VERY LOW<100CC/6HR.
--- NOTE | 2016-11-06 20:41 | ED DISCHARGE INSTRUCTIONS ---
Patient: PATY MARTÍNEZ General Instructions [facility] VisitID: [id number] [address] [place] [address] 46y, F Registration Date/Time: 11/05/2016 Pneumonia Sepsis Back pain Diabetes. (Electronically signed by Lonnie Khan MD 11/06/2016 20:41)
--- NOTE | 2016-11-06 20:41 | ED MED RECONCILIATION SUMMARY ---
Patient: PATY MARTÍNEZ Medication Reconciliation Report [facility] VisitID: [id number] [address] [place] [address] 46y, F Registration Date/Time: 11/05/2016 Weight: 113.3 kg Height/Length: 62 in. BMI: 45.7 ALLERGIES: CONTRAST DYE The patient's Home Medications are listed below: NONE. The source(s) of the original Home Medication information: Not obtained. The following Medications were given to the patient in the Emergency Department: IV NS IV Fluids bolus 0, then 500 mL/hr, administered: 11/05/2016 8:39:00 PM Tylenol [PO] PO 1000 mg, administered: 11/05/2016 8:39:00 PM Levaquin [IVPB] IVPB bolus 0, then 750 mg 100 mL/hr, administered: 11/05/2016 9:03:00 PM Vancomycin [IVPB] IVPB bolus 0, then 2 gm 250 mL/hr, administered: 11/05/2016 10:31:00 PM Zofran [IVP] IVP 4 mg, administered: 11/05/2016 11:52:00 PM IV NS IV Fluids bolus 1000 mL wide open, administered: 11/05/2016 11:53:00 PM The following Medications were prescribed to the patient: None.
--- NOTE | 2016-11-06 20:41 | ED MAR SUMMARY ---
..... Medication Administration Record [facility] [address] [address] Patient: PATY MARTÍNEZ Visit ID: [id number] 46y, F Weight: 113.3 kg Height/Length: 62 in BMI: 45.7 ALLERGIES: CONTRAST DYE Start 20:39 11/05/2016 Miky Zuñiga, Stop 23:42 11/05/2016 Igor Rosado R.N. Medication Administered: IV NS (SALINE), Dose: IV Fluids over 2 hour(s), Rate: 500 mL/hr, Dispensed: 1000 mL bag, Site: #1 left AC. Medication Ordered: IV NS : initial bolus none -, then 500 mL/hr for 4h (NOW); Routine. Given 20:39 11/05/2016 Miky Zuñiga Medication Administered: TYLENOL [PO] (ACETAMINOPHEN), Dose: 1000 mg PO. Medication Ordered: Tylenol PO 1,000 mg (NOW). Start 21:03 11/05/2016 Miky Zuñiga, Stop 22:31 11/05/2016 Miky Zuñiga Medication Administered: LEVAQUIN [IVPB] (LEVOFLOXACIN), Dose: 750 mg IVPB over 1.5 hour(s), Rate: 100 mL/hr, Site: #1 left AC. Medication Ordered: Levaquin IV 750 mg/150 mL (NOW). Start 22:31 11/05/2016 Miky Zuñiga, Stop 23:38 11/05/2016 Igor Rosado R.N. Medication Administered: VANCOMYCIN [IVPB], Dose: 2 gm IVPB over 1 hour(s), Rate: 250 mL/hr, Dispensed: 250 mL bag, Site: #1 left AC. Medication Ordered: Vancomycin IV 25 mg/kg (NOW). Given 23:52 11/05/2016 Igor Rosado R.N. Medication Administered: ZOFRAN [IVP] (ONDANSETRON HCL), Dose: 4 mg IVP over 2 minute(s), Site: #1 left AC. Medication Ordered: Zofran IV 4 mg (NOW). Start 23:53 11/05/2016 Igor Rosado R.N., Continued Upon Admission 00:20 11/06/2016 Igor Rosado R.N. Medication Administered: IV NS (SALINE), Dose: IV Fluids, Bolus: 1000 mL wide open, Dispensed: 1000 mL bag, Site: #1 left . Medication Ordered: IV NS : initial bolus 1000 mL (1000 mL/hr), then none - for X1 (NOW).
--- NOTE | 2016-11-06 20:41 | ED DISCHARGE INSTRUCTIONS ---
Patient: PATY MARTÍNEZ General Instructions [facility] VisitID: [id number] [address] [place] [address] 46y, F Registration Date/Time: 11/05/2016 Pneumonia Sepsis Back pain Diabetes. (Electronically signed by Lonnie Khan MD 11/06/2016 20:41)
--- NOTE | 2016-11-06 20:41 | ED MED RECONCILIATION SUMMARY ---
Patient: PATY MARTÍNEZ Medication Reconciliation Report [facility] VisitID: [id number] [address] [place] [address] 46y, F Registration Date/Time: 11/05/2016 Weight: 113.3 kg Height/Length: 62 in. BMI: 45.7 ALLERGIES: CONTRAST DYE The patient's Home Medications are listed below: NONE. The source(s) of the original Home Medication information: Not obtained. The following Medications were given to the patient in the Emergency Department: IV NS IV Fluids bolus 0, then 500 mL/hr, administered: 11/05/2016 8:39:00 PM Tylenol [PO] PO 1000 mg, administered: 11/05/2016 8:39:00 PM Levaquin [IVPB] IVPB bolus 0, then 750 mg 100 mL/hr, administered: 11/05/2016 9:03:00 PM Vancomycin [IVPB] IVPB bolus 0, then 2 gm 250 mL/hr, administered: 11/05/2016 10:31:00 PM Zofran [IVP] IVP 4 mg, administered: 11/05/2016 11:52:00 PM IV NS IV Fluids bolus 1000 mL wide open, administered: 11/05/2016 11:53:00 PM The following Medications were prescribed to the patient: None.
--- NOTE | 2016-11-06 20:41 | ED MAR SUMMARY ---
..... Medication Administration Record [facility] [address] [place] [address] Patient: PATY MARTÍNEZ Visit ID: [id number] 46y, F Weight: 113.3 kg Height/Length: 62 in BMI: 45.7 ALLERGIES: CONTRAST DYE Start 20:39 11/05/2016 Miky Zuñiga, Stop 23:42 11/05/2016 Igor Rosado R.N. Medication Administered: IV NS (SALINE), Dose: IV Fluids over 2 hour(s), Rate: 500 mL/hr, Dispensed: 1000 mL bag, Site: #1 left AC. Medication Ordered: IV NS : initial bolus none -, then 500 mL/hr for 4h (NOW); Routine. Given 20:39 11/05/2016 Miky Zuñiga Medication Administered: TYLENOL [PO] (ACETAMINOPHEN), Dose: 1000 mg PO. Medication Ordered: Tylenol PO 1,000 mg (NOW). Start 21:03 11/05/2016 Miky Zuñiga, Stop 22:31 11/05/2016 Miky Zuñiga Medication Administered: LEVAQUIN [IVPB] (LEVOFLOXACIN), Dose: 750 mg IVPB over 1.5 hour(s), Rate: 100 mL/hr, Site: #1 left AC. Medication Ordered: Levaquin IV 750 mg/150 mL (NOW). Start 22:31 11/05/2016 Miky Zuñiga, Stop 23:38 11/05/2016 Igor Rosado R.N. Medication Administered: VANCOMYCIN [IVPB], Dose: 2 gm IVPB over 1 hour(s), Rate: 250 mL/hr, Dispensed: 250 mL bag, Site: #1 left AC. Medication Ordered: Vancomycin IV 25 mg/kg (NOW). Given 23:52 11/05/2016 Igor Rosado R.N. Medication Administered: ZOFRAN [IVP] (ONDANSETRON HCL), Dose: 4 mg IVP over 2 minute(s), Site: #1 left AC. Medication Ordered: Zofran IV 4 mg (NOW). Start 23:53 11/05/2016 Igor Rosado R.N., Continued Upon Admission 00:20 11/06/2016 Igor Rosado R.N. Medication Administered: IV NS (SALINE), Dose: IV Fluids, Bolus: 1000 mL wide open, Dispensed: 1000 mL bag, Site: #1 left . Medication Ordered: IV NS : initial bolus 1000 mL (1000 mL/hr), then none - for X1 (NOW).
[2016-11-07] VITALS (24 sets, daily range): BP systolic 96–1385; BP diastolic 54–78
--- NOTE | 2016-11-07 05:44 | NUR ---
0540 Noted multiple abnormal lab values (am draw) including K, BUN/Cr, Mg, WBC, no lactated follow up and notified Dr Campbell. D/C'd #2 and #3 IV KCL and received new order of MgSul 2gm IV. Also notified regarding marginal uop not reponding to IV 500ml bolus. HR 90's BP stable on titrating Dopamine gtt 3mcg/kg/min now. no changes of treatment. pt is arousiable easily, carring conversation appropriate. IVF continued at 200ml/hr reverified with Dr Campbell as not seen on order. Walls intact and roslyn/cath care provided by tech. IV PICC line intact. continued Dopamine gtt and ivf as ordered. O2 4L NC, improved serum bicarb level. RR 18-20/min througout the noc shift. Non labored resp status, but pt states that she still has sob. Post lungs crackles 1/2 down unchanged. no neuro status cahnged. cont close monitoring cv, pulm,Gi, , comfort, safety. call light in reach and appropriately calls for help. NPO status, Full code, MRSA hx and contact isolation continued for pending result. Pt was informed care plan periodically and understood. uneventful noc.
--- NOTE | 2016-11-07 07:02 | Progress Note ---
Subjective General The patient is a 46-year-old white female with a PMH of history of Obesity, Depression, DVT who presented to [facility] emergency room on the day of admission with acute on chronic flank pain. Patient was also found to be short of breath and needing oxygen for a state of hypoxia., Pt. was seen in the [facility] ER for an evaluation and findings consistent with acute pain in the lower back, flank, kidney stone in the ureter calculi without hydra froze this, and infiltrates on chest x-ray. Patient is admitted with a potential pneumonia, poor upper airway control, intractable back pain and potential for ureter stone. Septic protocol with a moderate suspicion for sepsis. Patient is waxing and waning in hypotension with elevated heart rate. Patient was admitted with a fever. Secondarily the patient was admitted for further evaluation and treatment by Az Mota M.D. Still feeling weak, also dyspnea with cough sputum, no CP, no fever no chills, no frequency, or disuria, barly adequate urin outpt Review of system: Respiratory system: Positive for dyspnea cough and sputum Urogenital system: Negative for frequency dysuria Constitutional: Negative for fever or chills Physical Exam Vital Signs / I&Os Vital Signs Date Time Temp Pulse Resp B/P Pulse O2 O2 Flow FiO2 Ox Delivery Rate 11/07 0608 98.1 97 19 96/54 92 Nasal 4.0 Cannula 11/07 0517 93 20 111/78 93 Nasal 4.0 Cannula 11/07 0412 102 27 105/63 92 Nasal 4.0 Cannula 11/07 0312 99 20 102/60 93 Nasal 4.0 Cannula 11/07 0216 97.9 103 26 96/63 92 Nasal 4.0 Cannula 11/07 0110 99 22 113/65 94 Nasal 4.0 Cannula 11/07 0100 Nasal 4.0 Cannula 11/07 0012 103 19 108/59 93 Nasal 4.0 Cannula 11/06 2321 107 21 117/53 93 Nasal 4.0 Cannula 11/06 2240 98.4 11/06 2206 105 22 123/60 94 Nasal 4.0 Cannula 11/068 4.0 11/06 2110 99 26 114/58 95 Nasal 4.0 Cannula 11/06 2033 Nasal 4.0 Cannula 11/07 1999 111 22 124/62 97 Nasal 3.0 Cannula 11/06 1914 110 26 106/48 94 Nasal 3.0 Cannula 11/06 1807 98.8 123 26 100/43 94 Nasal 3.0 Cannula 11/06 1713 132 43 96 Nasal 3.0 Cannula 11/06 1604 131 37 83/47 96 Nasal 3.0 Cannula 11/06 1517 89/54 11/06 1511 127 43 84/48 100 Nasal 3.0 Cannula 11/06 1452 3.0 11/06 1411 121 30 87/45 98 Nasal 2.0 Cannula 11/06 1338 98.1 123 48 104/59 95 Nasal 2.0 Cannula 11/06 1150 135/98 11/06 1147 122 48 137/79 87 15.0 Non-Rebreather Mask 11/06 1136 97.0 76 146/98 100 15.0 Non-Rebreather Mask 11/06 1106 108/66 Nasal 2.0 Cannula 11/06 1024 97.9 96 20 88/62 93 Nasal 1.5 Cannula 11/06 0905 1.0 11/06 0813 1.0 11/06 0800 Nasal 2.0 Cannula 11/06 0713 97.7 104 18 90/60 97 Nasal 1.0 Cannula I&O 11/07 0000 11/06 1600 11/06 0800 Intake Total 1369 90 1158 Output Total 158 78 150 Balance 1211 12 1008 General Appearance Moderate distress Lungs crackles in both bases Neck Supple Cardiovascular Regular rate and rhythm, Normal S1 and S2, No murmurs, gallops, rubs Abdomen Normal bowel sounds, Soft, No tenderness Extremities No edema Skin No Rashes Psych/Mental Status Mental status normal LAB Results Laboratory Tests 11/07 11/07 11/07 11/07 11/06 0840 0435 0435 0435 2140 Chemistry Plasma Sodium (136 - 145 mmol/L) 140 Plasma Potassium (3.5 - 5.1 mmol/L) 4.0 Plasma Chloride (98 - 107 mmol/L) 108 CO2 (Enzymatic) (21 - 32 mmol/L) 20 BUN (7 - 18 mg/dL) 39 Creatinine (0.6 - 1.3 mg/dL) 2.8 Est GFR ( Amer) (mL/min) 23.33 Est GFR (Non-Af Amer) (mL/min) 19.25 Glucose (70 - 110 mg/dL) 132 Lactic Acid (0.4 - 2.0 mmol/L) 1.8 Plasma Calcium (8.5 - 10.1 mg/dL) 6.8 Plasma Magnesium (1.8 - 2.4 mg/dL) 1.7 B-Natriuretic Peptide (5 - 100 pg/ml) 921 Procalcitonin (0 - 0.5 ng/mL) 34.8 41.7 Hematology WBC (4.5 - 11.5 K/uL) 20.8 RBC (4.00 - 5.20 M/uL) 3.79 Hgb (12.0 - 16.0 gm/dL) 10.5 Hct (36.0 - 46.0 %) 32.0 MCV (80 - 100 fL) 84 MCH (26 - 34 pg) 28 RDW (11.6 - 14.8 %) 14.4 Neut % (Auto) (50 - 75 %) 59 Lymph % (Auto) (25 - 40 %) 6 [place] % (Auto) (3 - 14 %) 0 Eos % (Auto) (0 - 4 %) 0 Baso % (Auto) (0 - 2 %) 0 Band Neutrophils % (0 - 8 %) 35 Metamyelocytes % (0 - 1 %) 0 Myelocytes (0 - 1 %) 0 Other Cell Type 0 Plt Count, EDTA (150 - 400 K/uL) 38 Hypochromic-Microcytic 1+ PUBS MCHC (31 - 37 g/dL) 33 11/06 11/06 2140 2140 Chemistry Plasma Sodium (136 - 145 mmol/L) 137 Plasma Potassium (3.5 - 5.1 mmol/L) 3.2 Plasma Chloride (98 - 107 mmol/L) 105 CO2 (Enzymatic) (21 - 32 mmol/L) 17 BUN (7 - 18 mg/dL) 37 Creatinine (0.6 - 1.3 mg/dL) 2.7 Est GFR ( Amer) (mL/min) 24.33 Est GFR (Non-Af Amer) (mL/min) 20.08 Glucose (70 - 110 mg/dL) 158 Lactic Acid (0.4 - 2.0 mmol/L) 2.2 Plasma Calcium (8.5 - 10.1 mg/dL) 7.3 Assessment and Plan Problem List 1. Sepsis Plan on Meropenem, will wean off dopamin and decrease IV fluid as torates 2. Pneumonia Plan check follow up precalcitonin and BNP, consider Echo 3. Back pain Plan stable, chronic 4. Diabetes Plan this is mild DM, controlled will monitor
--- NOTE | 2016-11-07 07:54 | DIAGNOSTIC IMAGING REPORT ---
PROCEDURE: XR CHEST 1 VIEW INDICATION: SOB PNEUMONIA CHF TECHNIQUE: Single view chest. 05:09 hours COMPARISON: 11/06/2016 at 1719 hours and 1147 hours FINDINGS: Cardiomediastinal contour is stable with heart size accentuated by low lung volumes. Right PICC line is in stable position. Central vasculature is indistinct. Mixed interstitial and alveolar opacities, worsening in the left lower lung. Patchy perihilar alveolar opacities, left worse than right. No significant effusion. Stable osseous structures. IMPRESSION: 1. Worsened mixed interstitial and alveolar opacities bilaterally, left lung more extensive than right. Differential diagnosis includes edema as well as mixed interstitial and alveolar pneumonias. 2. Indistinct central vessels suggestive of volume overload.
--- NOTE | 2016-11-07 09:41 | NUR ---
NUTRITION ASSESSMENT: S: Pt admitted with sepsis, PNA, diabetes and back pain. Pt transferred to CCU yesterday afternooon. Pt is currently NPO. O: Diet Rx: NPO NKFA Wts: 126.6 kg Ht: 62" IBW: 58-65 kg BMI: 51.4 %IBW: 194% ABW: ~83 kg Est Kcals: ~2997-6449 kcals per day Est Pro: ~80-100 g per day Est Fluids: ~2.5 L or per MD Meds Incl: low dose sliding scale insulin, IV mag, dopamine, see eMar for complete list/details. Labs Incl: (11/07) glucose 132, BUN 39, Creat 2.8, Na+ 140, K+ 4.0, mag 1.7, Ca+ 6.8, HCT 32, HGB 10.5, MCV 84, MCH 28 (11/06) albumin 2.3, total pro 6.0 A1c: 6.3 (est ave 134) Skin: Hitesh Score 18; waffle overlay in place Accuchecks: 104-243 A: Pt currently NPO; upcoming tests possibly. Will alert MD regarding pt to be on cardiac and a consistent carb diet. Rev'd meds and labs, insulin in place for coverage, noted A1c. Pt BMI; morbid obesity. Pt would benefit from diabetes education prior to d/c as well as possibly outpatient education. RD to follow up and monitor nutrition indices prn/education prn and will communicate wiht multidiciplinary team. P: 1. CCD/Cardiac please. 2. Diabetes outpatient education if possible, will start referral process.
--- NOTE | 2016-11-07 17:50 | NUR ---
PT APPEARS TO BE SLIGHTLY BETTER BP HAS STABLIZED AT 108/65 WITH DOPAMINE DRIP BEING WEANED AT 1 /HR HAS BEEN AN ISSUE IN THE 110'S WITH RESP RATE IN THE 20'S TO 30'S. PT OOB WITH STANDBY ASSIST TO CHAIR. ENCOURAGED DEEP BREATH AND COUGHING. ONLY ABLE TO REACH 500 ON HER IS. PT C/O PAIN WHEN COUGHING.
[2016-11-08] VITALS (24 sets, daily range): BP systolic 103–143; BP diastolic 52–83
--- NOTE | 2016-11-08 05:37 | NUR ---
VS HAVE REMAINED STABLE THROUGH THE NIGHT. PT STILL TACHYPNIC, 25-30'S, 3LNC, SATS 96%. PT HAS PRODUCTIVE COUGH OF BROWN, MEDIUM THICK SPUTUM. TYLENOL GIVEN FOR GENERALIZED DISCOMFORT. WILL CONTINUE TO MONITOR.
--- NOTE | 2016-11-08 07:03 | Progress Note ---
Subjective General The patient is a 46-year-old white female with a PMH of history of Obesity, Depression, DVT who presented to [facility] emergency room on the day of admission with acute on chronic flank pain. Patient was also found to be short of breath and needing oxygen for a state of hypoxia., Pt. was seen in the [facility] ER for an evaluation and findings consistent with acute pain in the lower back, flank, kidney stone in the ureter calculi without hydra froze this, and infiltrates on chest x-ray. Patient is admitted with a potential pneumonia, poor upper airway control, intractable back pain and potential for ureter stone. Septic protocol with a moderate suspicion for sepsis. Patient is waxing and waning in hypotension with elevated heart rate. Patient was admitted with a fever. Secondarily the patient was admitted for further evaluation and treatment by Az Mota M.D. Doing much better, breathing improved, some cough and chills no cp, no nause or vomiting, able to eat and drink, feels stronger, much more alert, off dopamin drip now Review of system: Respiratory system: Improved breathing some cough no chest pain GI: Negative for nausea or vomiting Constitutional: Has some chills no fever Physical Exam Vital Signs / I&Os Vital Signs Date Time Temp Pulse Resp B/P Pulse O2 O2 Flow FiO2 Ox Delivery Rate 11/08 0613 88 23 115/65 97 Nasal 3.0 Cannula 11/08 0500 103/69 11/08 0415 91 22 117/61 97 / 0300 97.7 91 22 121/66 98 Nasal 3.0 Cannula 11/08 0200 97.5 93 22 109/66 96 Nasal 3.0 Cannula 11/08 0120 90 21 117/67 96 Nasal 3.0 Cannula /18 0014 95 25 125/67 96 Nasal 3.0 Cannula /18 0008 Nasal 3.0 Cannula / 2309 93 36 114/66 98 Nasal 2.0 Cannula / 2227 97.5 11/07 2204 96 35 112/69 94 Nasal 2.0 Cannula / 2105 Nasal 2.0 Cannula 05/17 2100 91 23 102/64 97 Nasal 2.0 Cannula /17 2017 2.0 05/ 2011 94 33 103/64 96 Nasal 2.0 Cannula / 1911 97.5 100 24 103/64 100 Nasal 2.0 Cannula 11/07 1810 98 16 109/67 98 Nasal 2.0 Cannula 11/07 1714 104 16 108/65 90 Nasal 2.0 Cannula 11/07 1610 104 28 102/57 94 Nasal 2.0 Cannula 11/07 1510 102 25 120/62 96 Nasal 2.0 Cannula 11/07 1400 97.3 104 30 119/55 97 Nasal 2.0 Cannula 11/07 1300 97.9 98 33 124/62 95 Nasal 2.0 Cannula 11/07 1200 102 24 105/63 95 Nasal 2.0 Cannula 11/07 1100 97.5 95 31 126/66 95 Nasal 2.0 Cannula 11/07 1000 97.0 25 25 124/60 95 Nasal 2.0 Cannula 11/07 0935 92 27 1385/68 96 Nasal 2.0 Cannula 11/07 0830 Nasal 2.0 Cannula 11/07 0800 97 22 97/60 97 Nasal 2.0 Cannula I&O 11/08 0000 11/07 1600 11/07 0800 Intake Total 2176 120 2814 Output Total 574 935 238 Balance 1602 -815 2576 General Appearance No acute distress Lungs Clear to auscultation Neck Supple Cardiovascular Regular rate and rhythm, Normal S1 and S2, No murmurs, gallops, rubs Abdomen Normal bowel sounds, Soft, No tenderness Extremities No edema Skin No Rashes Psych/Mental Status Mental status normal LAB Results Laboratory Tests 11/08 0620 Chemistry Plasma Sodium (136 - 145 mmol/L) 140 Plasma Potassium (3.5 - 5.1 mmol/L) 3.3 Plasma Chloride (98 - 107 mmol/L) 109 CO2 (Enzymatic) (21 - 32 mmol/L) 17 BUN (7 - 18 mg/dL) 51 Creatinine (0.6 - 1.3 mg/dL) 2.7 Est GFR ( Amer) (mL/min) 24.33 Est GFR (Non-Af Amer) (mL/min) 20.08 Glucose (70 - 110 mg/dL) 114 Plasma Calcium (8.5 - 10.1 mg/dL) 7.0 Hematology WBC (4.5 - 11.5 K/uL) 10.5 RBC (4.00 - 5.20 M/uL) 3.66 Hgb (12.0 - 16.0 gm/dL) 10.1 Hct (36.0 - 46.0 %) 30.7 MCV (80 - 100 fL) 84 MCH (26 - 34 pg) 28 RDW (11.6 - 14.8 %) 14.9 Neut % (Auto) (50 - 75 %) 89.1 Lymph % (Auto) (25 - 40 %) 8.2 [place] % (Auto) (3 - 14 %) 1.8 Eos % (Auto) (0 - 4 %) 0.9 Baso % (Auto) (0 - 2 %) 0 Plt Count, EDTA (150 - 400 K/uL) 37 PUBS MCHC (31 - 37 g/dL) 33 Assessment and Plan Problem List 1. Sepsis Plan improved significantly, contineu meripenem, I V hydration 2. Pneumonia Plan as above 3. Diabetes Plan controlled, this is borderline DM
--- NOTE | 2016-11-08 13:00 | NUR ---
PT WAS GIVEN IVF AT 200CC/HR OVERNITE PER THE ORDERS. IVF WERE DECREASED TO 100CC/HR LASIX 20 MG IV WAS GIVEN AT 1230 AFTER PT RESP RATE IS IN THE 30'S TO 40'S PT WILL DESAT DOWN TO 85 % WHEN PT CHANGES POSITION OR GETS OOB TO THE CHAIR BUT AFTER A MINUTE WILL RETURN TO 92 TO 93 %. PT SPUTUM IS PINK TINGED AND PT C/O OF A SEVERE HEADACHE. PT STATED THE MORPHINE SHE HAD BEEN GIVEN WAS CAUSING HER NIGHTMARES SO TYLENOL WAS GIVEN.
--- NOTE | 2016-11-08 14:43 | NUR ---
Nutrition Follow up note: Pt now on Cardiac/consistent CHO diet. PO intake appears to be moderate (10-75% in recent days.) Rev'd meds and labs. On lasix and insulin. BG levels improving since admit. A1c 6.3. Provided pt w/ DM education, and gave nutrition education handouts. Assessed pt's understanding which pt did not ask questions, and placed handouts to the side bed table. Let pt know that DM outpatient referal is in the system by previous RD. Will continue to follow for additional nutrition needs/per protocol.
--- NOTE | 2016-11-08 15:30 | NUR ---
PT STARTED BECOMING INCRESINGLY PANICKED AND SOB. HR IS IN THE 130'S TO 140'S RESP RATE IN 40'S. DR. ANDRADE IS AWARE AND HAS ORDERED THE A STAT CXR. AFTER PT CXR WAS DONE LASIX 40 MG IV WAS ORDERED. AND HER MUSE CATH WAS REPLACED.
--- NOTE | 2016-11-08 16:16 | DIAGNOSTIC IMAGING REPORT ---
PROCEDURE: XR CHEST 1 VIEW INDICATION: dyspnea TECHNIQUE: Portable AP view 04:02 p.m. COMPARISON: Chest 11/07/2016 and 11/06/2016 FINDINGS: Increasing pulmonary edema. Particularly in the right lung. IMPRESSION: 1. Increasing pulmonary edema.
[2016-11-09] VITALS (28 sets, daily range): BP systolic 88–186; BP diastolic 43–123
--- NOTE | 2016-11-09 07:55 | NUR ---
0600 shift summary A/Ox4 drowsy mostly but arise easily and coherent. vss, afebrile. cooperative, c/o LOONEY this am and given Tylenol per pt's request. IVF 100ml/hr, PIVx2 intact, IV Heparin gtt contiuned currently 800unit/hr. no c/o leg pain no chest pain. ETT on vent, no resp distress noted, O2 sat >98% bibasilar crackles. No skin breakdown, skin intact. No monitor changes noted still St depression w/ t wave inversion. no repeat EKG ordered and MD Trevino and Susy aware of. pt is aware of care plan for the day. Notified Dr [email or web address] for no uop for 18hrs. received order of Lasix and pending admin. uneventful noc. bladder rescanned this am 0700, 75ml noted and notified Dr Trevino.
--- NOTE | 2016-11-09 15:30 | NUR ---
1300 PT STARTED SHAKING, RESP RATE WENT UP INTO THE 30'S TO 40'S, HR IS IN THE THE 130'S TO 140'S STATING SHE WAS COLD. DR. ANDRADE CAME TO ASESS THE PT AND STATED SHE HAD HAD A SIMILAR EPISODE WHEN ON 2ND FLOOR AND THAT HE DX WAS ANXIETY AND ORDERS RECEIVED TO GIVE 0.5 MG ATIVAN FOLLOWED BY DILAUDID 1 MG IV. PT WAS GIVEN THESE MEDS AND NOW AT 1530 HR IS 128, RESP RATE IS 27 AND PT IS SITTING UP IN A CHAIR TRYING TO EAT HER LATE LUNCH BUT FALLING ASLEEP.
--- NOTE | 2016-11-09 16:22 | Progress Note ---
Subjective General he patient is a 46-year-old white female with a PMH of history of Obesity, Depression, DVT who presented to [facility] emergency room on the day of admission with acute on chronic flank pain. Patient was also found to be short of breath and needing oxygen for a state of hypoxia., Pt. was seen in the [facility] ER for an evaluation and findings consistent with acute pain in the lower back, flank, kidney stone in the ureter calculi without hydra froze this, and infiltrates on chest x-ray. Patient is admitted with a potential pneumonia, poor upper airway control, intractable back pain and potential for ureter stone. Septic protocol with a moderate suspicion for sepsis. Patient is waxing and waning in hypotension with elevated heart rate. Patient was admitted with a fever. Secondarily the patient was admitted for further evaluation and treatment by Az Mota M.D. Had a goog night but dverlopped anxity attach which caused dyspnea with tachycardia and elevated BP, resolved with one dose of ativan and 1mg of Dilaudid, no palpitation still has cough sputum chilld also pain in her hip area Review of system: Respiratory system: Positive for dysrhythmia cough Cardiac: Negative for chest pain palpitations Constitutional: No fever but has chills MK S: Mild pain in hip Physical Exam Vital Signs / I&Os Vital Signs Date Time Temp Pulse Resp B/P Pulse O2 O2 Flow FiO2 Ox Delivery Rate 11/09 1500 118 28 90/43 98 Nasal 3.0 Cannula 11/09 1404 98.1 128 34 116/57 98 Nasal 3.0 Cannula 11/09 1355 128 38 140/64 987 Nasal 3.0 Cannula 11/09 1350 3.0 11/09 1345 2.0 11/09 1338 135 29 178/92 94 Nasal 3.0 Cannula / 1336 145 41 92 11/09 1332 139 37 11/09 1329 136 33 94 Nasal 3.0 Cannula 11/09 1325 135 34 186/74 86 Nasal 3.0 Cannula 11/09 1314 126 36 173/123 11/09 1301 98.1 121 43 158/101 92 Room Air 3.0 11/09 1211 94 23 124/71 94 Room Air 11/09 1100 96 37 113/79 94 Room Air 11/09 1000 97.5 96 31 110/67 99 Room Air 11/09 0917 101 27 111/81 100 Nasal 4.0 Cannula 11/09 0805 98 31 122/71 100 Nasal 4.0 Cannula 11/09 0800 96 31 132/74 97 Nasal 4.0 Cannula 11/09 0605 94 26 136/68 100 Nasal 4.0 Cannula 11/09 0526 95 32 125/76 96 Nasal 4.0 Cannula 11/09 0436 88 23 122/71 100 Nasal 4.0 Cannula 11/09 0328 88 30 120/74 100 Nasal 4.0 Cannula 11/09 0217 98.4 88 27 121/70 98 Nasal 4.0 Cannula 11/09 0109 98.4 11/09 0109 84 30 127/70 95 Nasal 2.0 Cannula 11/09 0013 94 31 120/73 96 Nasal 2.0 Cannula 11/09 0009 99.1 11/09 0000 Nasal 2.0 Cannula 11/08 2300 96 28 111/67 94 Mask 2.0 11/08 2230 98.1 11/08 2230 Mask 2.0 11/08 2200 110 36 116/69 93 Mask 2.0 11/088 98.1 112 40 116/67 93 Mask 2.0 11/086 89 Nasal 3.0 Cannula 11/08 2105 107 37 120/66 88 Nasal 2.0 Cannula 11/09 2007 110 35 117/75 91 Nasal 2.0 Cannula 11/08 1929 2.0 11/08 1900 111 35 107/58 95 11/08 1809 98.1 120 37 106/52 94 11/08 1701 128 43 123/78 94 Nasal 2.0 Cannula I&O 11/09 0000 11/08 1600 11/08 0800 Intake Total 2616 748 7134 Output Total 1980 1115 485 Balance -559 -395 1013 General Appearance Mild distress Lungs scatterd wheezing all over lungs Neck Supple Cardiovascular Regular rate and rhythm, Normal S1 and S2, No murmurs, gallops, rubs Abdomen Normal bowel sounds, Soft, No tenderness Extremities No edema Skin No Rashes Psych/Mental Status Mental status normal (anxiety) LAB Results Laboratory Tests 11/09 0500 Chemistry Plasma Sodium (136 - 145 mmol/L) 139 Plasma Potassium (3.5 - 5.1 mmol/L) 3.9 Plasma Chloride (98 - 107 mmol/L) 108 CO2 (Enzymatic) (21 - 32 mmol/L) 19 BUN (7 - 18 mg/dL) 49 Creatinine (0.6 - 1.3 mg/dL) 2.6 Est GFR ( Amer) (mL/min) 25.42 Est GFR (Non-Af Amer) (mL/min) 20.97 Glucose (70 - 110 mg/dL) 109 Plasma Calcium (8.5 - 10.1 mg/dL) 7.2 Hematology WBC (4.5 - 11.5 K/uL) 9.8 RBC (4.00 - 5.20 M/uL) 3.29 Hgb (12.0 - 16.0 gm/dL) 8.9 Hct (36.0 - 46.0 %) 27.5 MCV (80 - 100 fL) 84 MCH (26 - 34 pg) 27 RDW (11.6 - 14.8 %) 15.1 Neut % (Auto) (50 - 75 %) 83 Lymph % (Auto) (25 - 40 %) 16 [place] % (Auto) (3 - 14 %) 1 Eos % (Auto) (0 - 4 %) 0 Baso % (Auto) (0 - 2 %) 0 Band Neutrophils % (0 - 8 %) 0 Metamyelocytes % (0 - 1 %) 0 Myelocytes (0 - 1 %) 0 Other Cell Type 0 Plt Count, EDTA (150 - 400 K/uL) 36 Poikilocytosis (manual 1+ Anisocytosis (manual) 1+ Target Cells OCC PUBS MCHC (31 - 37 g/dL) 33 Assessment and Plan Problem List 1. Sepsis Plan Blood culture: E, Coli sensitive to Meropenem 2. Pneumonia Plan continue merapenem, will try to ambulate today 3. Diabetes Plan controlled continue current managment 4. Back pain Plan required one dose of 1mg Dilaudid today
[2016-11-10] VITALS (28 sets, daily range): BP systolic 101–145; BP diastolic 48–97
--- NOTE | 2016-11-10 02:00 | NUR ---
PT'S HR 140. PT SLEEPING. NOTIFIED. WILL CONTINUE TO MONITOR. RR 26-33, BP 102/60.
--- NOTE | 2016-11-10 03:46 | NUR ---
5MG IV METOPROLOL GIVEN. PT HR REMAINS IN THE 140S. NOTIFIED.
--- NOTE | 2016-11-10 07:42 | Progress Note ---
Subjective General The patient is a 46-year-old white female with a PMH of history of Obesity, Depression, DVT who presented to [facility] emergency room on the day of admission with acute on chronic flank pain. Patient was also found to be short of breath and needing oxygen for a state of hypoxia., Pt. was seen in the [facility] ER for an evaluation and findings consistent with acute pain in the lower back, flank, kidney stone in the ureter calculi without hydra froze this, and infiltrates on chest x-ray. Patient is admitted with a potential pneumonia, poor upper airway control, intractable back pain and potential for ureter stone. Septic protocol with a moderate suspicion for sepsis. Patient is waxing and waning in hypotension with elevated heart rate. Patient was admitted with a fever. Secondarily the patient was admitted for further evaluation and treatment by Az Mota M.D. States feeling better and stronger, has SOB but better, no cp no palpitation, no dizziness, no nausea or vomiting , some cough with sputum Review of system: Respiratory: Shortness of breath improved has some cough Cardiac: No chest pain no palpitations GI: No nausea no vomiting Physical Exam Vital Signs / I&Os Vital Signs Date Time Temp Pulse Resp B/P Pulse O2 O2 Flow FiO2 Ox Delivery Rate 11/10 0711 111/78 05 0707 98.8 146 25 100 Nasal 2.0 Cannula 11/10 0618 143 29 135/59 99 Nasal 2.0 Cannula / 0515 144 33 132/73 99 2.0 05/20 0414 142 26 101/48 100 Nasal 2.0 Cannula /20 0313 137 35 102/60 100 Nasal 2.0 Cannula / 0219 98.2 140 32 117/56 98 Nasal 2.0 Cannula / 0125 2.0 05/20 0119 97 23 123/69 94 Nasal 2.0 Cannula 05/20 0017 89 31 115/63 94 Room Air 11/09 2353 98.4 05 2316 97 24 96/57 97 Room Air 11/09 2220 101 25 105/58 98 Room Air 0.0 11/09 2110 96 32 115/71 93 Nasal 0.0 Cannula 11/09 2009 95 30 104/61 96 Nasal 2.0 Cannula 11/09 2000 Room Air 0.0 11/09 1936 97 29 106/56 100 Nasal 2.0 Cannula 1800 97.7 94 29 105/58 97 Room Air 0.0 11/09 1700 97 29 104/71 100 Room Air 0.0 11/09 1600 104 31 88/56 99 Room Air 0.0 11/09 1500 118 28 90/43 98 Nasal 3.0 Cannula 11/09 1404 98.1 128 34 116/57 98 Nasal 3.0 Cannula 11/09 1355 128 38 140/64 987 Nasal 3.0 Cannula 11/09 1350 3.0 11/09 1345 2.0 11/09 1338 135 29 178/92 94 Nasal 3.0 Cannula 11/09 1336 145 41 92 11/09 1332 139 37 11/09 1329 136 33 94 Nasal 3.0 Cannula 11/09 1325 135 34 186/74 86 Nasal 3.0 Cannula 11/09 1314 126 36 173/123 11/09 1301 98.1 121 43 158/101 92 Room Air 3.0 11/09 1211 94 23 124/71 94 Room Air 11/09 1100 96 37 113/79 94 Room Air 11/09 1000 97.5 96 31 110/67 99 Room Air 11/09 0917 101 27 111/81 100 Nasal 4.0 Cannula 11/09 0805 98 31 122/71 100 Nasal 4.0 Cannula 11/09 0800 96 31 132/74 97 Nasal 4.0 Cannula I&O 11/10 0000 11/09 1600 11/09 0800 Intake Total 6761 558 9122 Output Total 466 123 2374 Balance 1513 -685 340 General Appearance No acute distress Lungs Clear to auscultation Neck Supple Cardiovascular Normal S1 and S2, No murmurs, gallops, rubs (irragular tachycardic) Extremities Normal exam (3+ edema bilaterally) Skin No Rashes Psych/Mental Status Mental status normal LAB Results Laboratory Tests 11/10 1208 Chemistry TSH 3rd Generation (0.34 - 3.74 uIU/mL) 1.740 Assessment and Plan Problem List 1. Sepsis Plan improving dramatically, contiue Meropenem 2. Pneumonia Plan as above 3. Afib Plan check TSH, will start Cardizem drip 4. Diabetes Plan contolled
--- NOTE | 2016-11-10 07:42 | Progress Note ---
Subjective General The patient is a 46-year-old white female with a PMH of history of Obesity, Depression, DVT who presented to [facility] emergency room on the day of admission with acute on chronic flank pain. Patient was also found to be short of breath and needing oxygen for a state of hypoxia., Pt. was seen in the [facility] ER for an evaluation and findings consistent with acute pain in the lower back, flank, kidney stone in the ureter calculi without hydra froze this, and infiltrates on chest x-ray. Patient is admitted with a potential pneumonia, poor upper airway control, intractable back pain and potential for ureter stone. Septic protocol with a moderate suspicion for sepsis. Patient is waxing and waning in hypotension with elevated heart rate. Patient was admitted with a fever. Secondarily the patient was admitted for further evaluation and treatment by Az Mota M.D. States feeling better and stronger, has SOB but better, no cp no palpitation, no dizziness, no nausea or vomiting , some cough with sputum Review of system: Respiratory: Shortness of breath improved has some cough Cardiac: No chest pain no palpitations GI: No nausea no vomiting Physical Exam Vital Signs / I&Os Vital Signs Date Time Temp Pulse Resp B/P Pulse O2 O2 Flow FiO2 Ox Delivery Rate 11/10 0711 111/78 05 0707 98.8 146 25 100 Nasal 2.0 Cannula 11/10 0618 143 29 135/59 99 Nasal 2.0 Cannula / 0515 144 33 132/73 99 2.0 05/20 0414 142 26 101/48 100 Nasal 2.0 Cannula /20 0313 137 35 102/60 100 Nasal 2.0 Cannula / 0219 98.2 140 32 117/56 98 Nasal 2.0 Cannula / 0125 2.0 05/20 0119 97 23 123/69 94 Nasal 2.0 Cannula 05/20 0017 89 31 115/63 94 Room Air 11/09 2353 98.4 05 2316 97 24 96/57 97 Room Air 11/09 2220 101 25 105/58 98 Room Air 0.0 11/09 2110 96 32 115/71 93 Nasal 0.0 Cannula 11/09 2009 95 30 104/61 96 Nasal 2.0 Cannula 11/09 2000 Room Air 0.0 11/09 1936 97 29 106/56 100 Nasal 2.0 Cannula 1800 97.7 94 29 105/58 97 Room Air 0.0 11/09 1700 97 29 104/71 100 Room Air 0.0 11/09 1600 104 31 88/56 99 Room Air 0.0 11/09 1500 118 28 90/43 98 Nasal 3.0 Cannula 11/09 1404 98.1 128 34 116/57 98 Nasal 3.0 Cannula 11/09 1355 128 38 140/64 987 Nasal 3.0 Cannula 11/09 1350 3.0 11/09 1345 2.0 11/09 1338 135 29 178/92 94 Nasal 3.0 Cannula 11/09 1336 145 41 92 11/09 1332 139 37 11/09 1329 136 33 94 Nasal 3.0 Cannula 11/09 1325 135 34 186/74 86 Nasal 3.0 Cannula 11/09 1314 126 36 173/123 11/09 1301 98.1 121 43 158/101 92 Room Air 3.0 11/09 1211 94 23 124/71 94 Room Air 11/09 1100 96 37 113/79 94 Room Air 11/09 1000 97.5 96 31 110/67 99 Room Air 11/09 0917 101 27 111/81 100 Nasal 4.0 Cannula 11/09 0805 98 31 122/71 100 Nasal 4.0 Cannula 11/09 0800 96 31 132/74 97 Nasal 4.0 Cannula I&O 11/10 0000 11/09 1600 11/09 0800 Intake Total 9048 155 2395 Output Total 363 724 7453 Balance 1513 -685 340 General Appearance No acute distress Lungs Clear to auscultation Neck Supple Cardiovascular Normal S1 and S2, No murmurs, gallops, rubs (irragular tachycardic) Extremities Normal exam (3+ edema bilaterally) Skin No Rashes Psych/Mental Status Mental status normal LAB Results Laboratory Tests 11/10 1208 Chemistry TSH 3rd Generation (0.34 - 3.74 uIU/mL) 1.740 Assessment and Plan Problem List 1. Sepsis Plan improving dramatically, contiue Meropenem 2. Pneumonia Plan as above 3. Afib Plan check TSH, will start Cardizem drip 4. Diabetes Plan contolled
--- NOTE | 2016-11-10 10:29 | NUR ---
MONITOR SHOWED TACHYCARDIA AT 147. CARDIZEM GTT STARTED AT 15MG/H. BP STABLE. SEE FLOW SHEET. RESP. SHALLOW TACHYPENEIC. HR NOW AFTER CARDIZEM GTT BOUNCING BETWEEN 130'S-140'S, AFLUTTER WITH RVR. APPETITE POOR. SLEEPY.
--- NOTE | 2016-11-10 13:10 | NUR ---
HR GOING INTO THE 150'S.OCC WILL DROP DOWN IN THE 120'S. CARDIZEM GTT INFUSING AT 15MG/H. ATIVAN 0.5MG GIVEN FOR MILD ANXIETY WITH NO CHANGE IN HR. DR. LUNA NOTIFIED AND ORDERS RECEIVED.
--- NOTE | 2016-11-10 15:21 | NUR ---
METOPROLOL GIVEN WITH HR 80-100. CARDIZEM DECREASED TO 10MG/H. HR STAYED CONTROLLED FOR ABOUT 25 MINUTES. PT C/O BEING COLD AND SHIVERING. MORPHINE GIVEN FOR PAIN IN LEGS AND HIPS WITH RELIEF. HR PERSISTING IN THE 130-140'S. DR. LUNA NOTIFIED. BP 113/74.
--- NOTE | 2016-11-10 18:08 | NUR ---
C/O NAUSEA. ZOFRAN GIVEN. METOPROLOL IV GIVEN WITH HR NOW LOW 100'S. BP 126/74
[2016-11-11] VITALS (23 sets, daily range): BP systolic 92–155; BP diastolic 41–82
--- NOTE | 2016-11-11 06:43 | Progress Note ---
Subjective General The patient is a 46-year-old white female with a PMH of history of Obesity, Depression, DVT who presented to [facility] emergency room on the day of admission with acute on chronic flank pain. Patient was also found to be short of breath and needing oxygen for a state of hypoxia., Pt. was seen in the [facility] ER for an evaluation and findings consistent with acute pain in the lower back, flank, kidney stone in the ureter calculi without hydra froze this, and infiltrates on chest x-ray. Patient is admitted with a potential pneumonia, poor upper airway control, intractable back pain and potential for ureter stone. Septic protocol with a moderate suspicion for sepsis. Patient is waxing and waning in hypotension with elevated heart rate. Patient was admitted with a fever. Secondarily the patient was admitted for further evaluation and treatment by Az Mota M.D. Patient states feeling stronger, still has coughing spells with small sputum, dyspnea is stable, no palpitation or chest pain, no nausea or vomiting, no fever or chills, Review of system: Respiratory system: Desipramine is stable still has coughing spells small amount of sputum Cardiac system: Negative for chest pain or palpitations positive for dyspnea Constitutional: No fever no chills Physical Exam Vital Signs / I&Os Vital Signs Date Time Temp Pulse Resp B/P Pulse O2 O2 Flow FiO2 Ox Delivery Rate 11/11 0605 89 29 123/64 100 Nasal 4.0 Cannula 11/11 0514 116 29 123/64 92 Nasal 4.0 Cannula 11/11 0425 120 34 155/75 100 Nasal 4.0 Cannula 11/11 0312 116 39 148/62 99 Nasal 4.0 Cannula 11/11 0212 98.4 107 36 132/64 99 Nasal 4.0 Cannula 11/11 0120 109 22 126/57 100 Nasal 4.0 Cannula / 0009 111 31 134/65 94 Nasal 4.0 Cannula 05/ 2310 95 36 128/70 99 Nasal 4.0 Cannula / 2235 4.0 05/ 2217 98.8 103 36 145/54 94 Nasal 2.0 Cannula 05/20 2100 99.7 97 32 135/66 97 Nasal 2.0 Cannula 05/20 2011 2.0 05/20 2006 Nasal 2.0 Cannula 05/20 2000 Nasal 2.0 Cannula 05/20 1999 93 22 116/60 99 Nasal 2.0 Cannula 05/20 1900 97.9 88 37 124/58 100 Nasal 4.0 Cannula 11/10 1812 98.2 98 37 124/57 95 Nasal 4.0 Cannula 11/10 1745 99.0 11/10 1700 102 30 126/74 97 Nasal 4.0 Cannula 11/10 1600 127 39 126/85 98 Nasal 2.0 Cannula 11/10 1530 98.8 11/10 1500 139 39 113/74 99 Nasal 2.0 Cannula 11/10 1410 99.1 152 29 135/97 83 Nasal 2.0 Cannula 11/10 1407 99.1 121 32 136/75 88 Nasal 2.0 Cannula 11/10 1334 82 38 109/66 91 Nasal 2.0 Cannula 11/10 1319 95 05 1318 152 35 120/79 93 Nasal 2.0 Cannula 11/10 1250 36 28 126/74 94 Nasal 2.0 Cannula 11/10 1110 152 40 122/76 97 Nasal 2.0 Cannula 11/10 1044 142 31 110/69 98 Nasal 2.0 Cannula 11/10 1028 97.2 147 33 117/67 100 Nasal 2.0 Cannula 11/10 0938 149 36 128/73 100 Nasal 2.0 Cannula 11/10 0902 148 36 125/75 100 Nasal 2.0 Cannula 11/10 0821 146 36 123/77 96 Nasal 2.0 Cannula 11/10 0820 2.0 11/10 0800 Nasal 2.0 Cannula 11/10 0711 111/78 05 0707 98.8 146 25 100 Nasal 2.0 Cannula I&O 11/11 0000 11/10 1600 11/10 0800 Intake Total 900 819 360 Output Total 6237 275 6571 Balance -275 -166 -1115 General Appearance Mild distress Lungs scattered wheezing in bases Neck Supple Cardiovascular Normal S1 and S2, No murmurs, gallops, rubs, irregular rhythim Abdomen Normal bowel sounds, Soft, No tenderness Extremities Normal exam (4+ edema bilaterally) Skin No Rashes Psych/Mental Status Mental status normal (mildly anxious) LAB Results Laboratory Tests 11/11 11/11 11/10 11/10 11/10 0405 0400 1935 1935 1208 Chemistry Plasma Sodium (136 - 145 mmol/L) Cancelled 135 Plasma Potassium (3.5 - 5.1 mmol/L) Cancelled 3.5 Plasma Chloride (98 - 107 mmol/L) Cancelled 104 CO2 (Enzymatic) (21 - 32 mmol/L) Cancelled 20 BUN (7 - 18 mg/dL) Cancelled 35 Creatinine (0.6 - 1.3 mg/dL) Cancelled 1.4 Est GFR ( Amer) (mL/min) Cancelled 51.92 Est GFR (Non-Af Amer) (mL/min) Cancelled 42.84 Glucose (70 - 110 mg/dL) Cancelled 152 Plasma Calcium (8.5 - 10.1 mg/dL) Cancelled 7.3 Total Bilirubin (0.0 - 1.0 mg/dL) 0.4 AST (15 - 37 U/L) 24 ALT (12 - 78 U/L) 9 Alkaline Phosphatase (46 - 116 U/L) 112 B-Natriuretic Peptide (5 - 100 pg/ml) 614 Total Protein (6.4 - 8.2 g/dL) 5.7 Albumin (3.3 - 5.0 g/dL) 1.5 TSH 3rd Generation (0.34 - 3.74 uIU/mL) 1.740 Hematology WBC (4.5 - 11.5 K/uL) 15.4 14.3 RBC (4.00 - 5.20 M/uL) 4.02 3.80 Hgb (12.0 - 16.0 gm/dL) 11.1 10.4 Hct (36.0 - 46.0 %) 32.9 31.2 MCV (80 - 100 fL) 82 82 MCH (26 - 34 pg) 28 27 RDW (11.6 - 14.8 %) 14.7 14.9 Neut % (Auto) (50 - 75 %) 87 88.1 Lymph % (Auto) (25 - 40 %) 7 7.4 [place] % (Auto) (3 - 14 %) 1 2.5 Eos % (Auto) (0 - 4 %) 1 1.7 Baso % (Auto) (0 - 2 %) 0 0.3 Band Neutrophils % (0 - 8 %) 3 Metamyelocytes % (0 - 1 %) 1 Myelocytes (0 - 1 %) 0 Other Cell Type 0 Plt Count, EDTA (150 - 400 K/uL) 55 48 PUBS MCHC (31 - 37 g/dL) 34 33 Assessment and Plan Problem List 1. Sepsis Plan almost resolved, eventhough WBC mildlly elevated, but clinically much better 2. Afib Plan having hard time weaning off Cardizem will send set of Troponin, and order Echo 3. Pneumonia Plan improved on ABX 4. Diabetes Plan controlled continue current meds
--- NOTE | 2016-11-11 10:04 | NUR ---
C/O CHEST TIGHTNESS,SOB, GENERALIZED BODY DISCOMFORT. TORADOL AND ATIVAN GIVEN. PT FEELING BETTER NOW. UP IN CHAIR FOR BREAKFAST, ATE VERY LITTLE. MONITOR SHOWS A FLUTTER HR 90'S TO 140'S.
--- NOTE | 2016-11-11 15:45 | NUR ---
MORE COUGHING TODAY. C/O ABD PAIN WITH COUGHING. BRING UP SMALL AMOUNTS OF BLOOD TINGED SPUTUM. WEANING CARDIZEM TO 5MG/H. HR 90 TO LOW 100'S, A FLUTTER.
[2016-11-12] VITALS (23 sets, daily range): BP systolic 121–168; BP diastolic 60–88
--- NOTE | 2016-11-12 04:37 | NUR ---
PATIENT C/O BACK AND NECK PAIN, GAVE TORADOL AND ATIVAN WITH GOOD RELIEF, SLEPT REALLY GOOD DURING FIRST PART OF SHIFT, PATIENT CONVERTED TO NORMAL SINUS RHYTHM DURING SHIFT CHANGE AND HAS REMAIN SINUS ALTHOUGH OCCASIONALLY TACHY, WOKE AROUND 0300, SLIGHTLY SOB ASKING FOR RT TX, PATIENT RECIEVED TREATMENT BUT SEEMED TO MAKE HER MORE UNCOMFORTABLE AND MORE TACHYPNIEC THAN BEFORE TREATMENT, HOWEVER TREATMENT DID REDUCE COUGHING. WILL CONTINUE TO MONITOR
--- NOTE | 2016-11-12 08:02 | Progress Note ---
Subjective General he patient is a 46-year-old white female with a PMH of history of Obesity, Depression, DVT who presented to [facility] emergency room on the day of admission with acute on chronic flank pain. Patient was also found to be short of breath and needing oxygen for a state of hypoxia., Pt. was seen in the [facility] ER for an evaluation and findings consistent with acute pain in the lower back, flank, kidney stone in the ureter calculi without hydra froze this, and infiltrates on chest x-ray. Patient is admitted with a potential pneumonia, poor upper airway control, intractable back pain and potential for ureter stone. Septic protocol with a moderate suspicion for sepsis. Patient is waxing and waning in hypotension with elevated heart rate. Patient was admitted with a fever. Secondarily the patient was admitted for further evaluation and treatment by Az Mota M.D. Breathig is little better, no palpitation, no cp, had nausea but no vomiting, no chills or fever, still has tachypnia, promise to try to walk today Review of system: Cardiac system: Negative for palpitations chest pain GI: Positive for nausea negative for vomiting Constitutional: Negative for fever or chills Physical Exam Vital Signs / I&Os Vital Signs Date Time Temp Pulse Resp B/P Pulse O2 O2 Flow FiO2 Ox Delivery Rate 11/12 0751 2.0 11/12 0711 109 27 149/70 93 Mask 3.0 11/12 0613 98.2 107 28 144/63 94 Mask 3.0 11/12 0508 116 30 140/77 91 Mask 3.0 11/12 0415 3.0 11/12 0410 107 31 99 Mask 3.0 11/12 0311 99 33 148/74 98 Mask 3.0 11/12 0218 97.7 103 25 137/67 92 Mask 3.0 11/12 0111 96 32 146/66 90 Nasal 3.0 Cannula 11/12 0012 96 25 125/63 97 Nasal 3.0 Cannula 11/11 2311 103 34 114/62 94 Nasal 3.0 Cannula 11/11 2200 98.8 108 35 92/41 93 Nasal 3.0 Cannula 11/11 2130 Nasal 3.0 Cannula 11/11 2100 97.7 107 37 125/59 90 Nasal 3.0 Cannula 11/11 2000 98.4 104 33 137/59 93 Nasal 3.0 Cannula 11/11 1943 3.0 11/11 1900 98.1 99 39 127/61 96 Nasal 3.0 Cannula 11/11 1810 98.1 85 27 127/61 98 Nasal 3.0 Cannula 11/11 1600 98.8 87 25 139/58 96 Nasal 3.0 Cannula 11/11 1500 99.5 111 29 140/57 92 Nasal 4.0 Cannula 11/11 1403 98.2 104 38 96 Nasal 4.0 Cannula 11/11 1401 123/67 11/11 1359 98.2 104 39 96 Nasal 4.0 Cannula 11/11 1330 3.0 11/11 1313 104 41 139/74 96 Nasal 4.0 Cannula 11/11 1217 93 34 116/61 96 Nasal 4.0 Cannula 11/11 1113 98.6 11/11 1112 93 33 128/62 92 Nasal 4.0 Cannula 11/11 1000 129/57 11/11 0901 159 27 100/74 98 Nasal 4.0 Cannula 11/11 0846 112 29 124/60 100 Nasal 4.0 Cannula 11/11 0820 4.0 11/11 0800 Nasal 4.0 Cannula I&O 11/12 0000 11/11 1600 11/11 0800 Intake Total 576 191 6902 Output Total 1069 775 960 Balance -215 -355 725 General Appearance Mild distress Lungs scattered wheezing in both lungs Cardiovascular Regular rate and rhythm, Normal S1 and S2, No murmurs, gallops, rubs Abdomen Normal bowel sounds, Soft (huge abdominal hernia), No tenderness Extremities Normal exam (4+ edema bilaterally) Skin No Rashes Psych/Mental Status Mental status normal LAB Results Laboratory Tests 11/122 Chemistry Plasma Sodium (136 - 145 mmol/L) 138 Plasma Potassium (3.5 - 5.1 mmol/L) 3.6 Plasma Chloride (98 - 107 mmol/L) 104 CO2 (Enzymatic) (21 - 32 mmol/L) 23 BUN (7 - 18 mg/dL) 19 Creatinine (0.6 - 1.3 mg/dL) 1.0 Est GFR ( Amer) (mL/min) >60 Est GFR (Non-Af Amer) (mL/min) >60 Glucose (70 - 110 mg/dL) 129 Plasma Calcium (8.5 - 10.1 mg/dL) 7.1 Hematology WBC (4.5 - 11.5 K/uL) 16.2 RBC (4.00 - 5.20 M/uL) 3.59 Hgb (12.0 - 16.0 gm/dL) 10.0 Hct (36.0 - 46.0 %) 29.6 MCV (80 - 100 fL) 82 MCH (26 - 34 pg) 28 RDW (11.6 - 14.8 %) 14.9 Neut % (Auto) (50 - 75 %) 84.8 Lymph % (Auto) (25 - 40 %) 9.2 Alfalfa % (Auto) (3 - 14 %) 3.8 Eos % (Auto) (0 - 4 %) 2.2 Baso % (Auto) (0 - 2 %) 0 Plt Count, EDTA (150 - 400 K/uL) 90 PUBS MCHC (31 - 37 g/dL) 34 Assessment and Plan Problem List 1. Sepsis Plan will change Ancef to Levaquin since WBC increasing 2. Pneumonia Plan as above, repeat CXR today 3. Afib Plan rate is controlled with po toprol will have Echo today 4. Diabetes Plan controlled continue current management
--- NOTE | 2016-11-12 08:30 | NUR ---
Patient sitting up in chair eating breakfast. Denies pain and nausea. Patient up to chair 1 person assistance and uses walker for support. Piccline BENNETT saline locked. Patient instructed to cough and deep breath frequently. No sob noted at this time. Patient encouraged to ambulate in hallways with assistance to help increase her strength. Will speak to MD about patient working with physical therapy. Walls patent. No complaints at this time. Pleasant and cooperative with care. Will continue to monitor.
--- NOTE | 2016-11-12 10:33 | DIAGNOSTIC IMAGING REPORT ---
PROCEDURE: XR CHEST 1 VIEW INDICATION: pneumonia TECHNIQUE: Portable AP view 8:21 am COMPARISON: Chests 11/08 through 11/06 FINDINGS: Decrease in infiltrates in the right and left midlung hur[place]. IMPRESSION: 1. Decrease in infiltrates in the right and left midlung hur[place].
--- NOTE | 2016-11-12 13:39 | NUR ---
Patient complained of nausea. Zofran 4 mg given IV. Will continue to monitor.
--- NOTE | 2016-11-12 14:39 | NUR ---
Nausea better. Zofran effective. Will continue to monitor.
--- NOTE | 2016-11-12 14:45 | NUR ---
NUTRITION FOLLOW UP NOTE: Pt po intake 50-75%; appears improved per documentation. pt continues on a CCD diet, accuchecks 150-164, SSI (low dose) continues. Rec continue current diet as ordered and appears appropriate at this time. RD to follow up prn/protocol.
--- NOTE | 2016-11-12 16:57 | NUR ---
Patient complained of pain and anxiety. Toradol 15 mg given for pain management and ativan 0.5 mg given IV for anxiety. No other complaints at this time. Will continue to monitor.
--- NOTE | 2016-11-12 17:57 | NUR ---
Patient resting at this time with eyes closed. Ativan and toradol effective. Will continue to monitor.
[2016-11-13] VITALS (17 sets, daily range): BP systolic 133–161; BP diastolic 63–81
--- NOTE | 2016-11-13 06:36 | NUR ---
PATIENT BECAME RESTLESS TURNING FREQUENTLY C/O PAIN AND SHORTNESS OF BREATHE, TORADOL , RT TX AND ATIVAN GIVEN, WOKE AROUND 0400 WITH HIGH BP 175/81, CHECKED ON PT, ADJUSTED BP CUFF, RECHECKED BP 160/81, PATIENT TACHYPNEIC AND APPEARED LETHARGIC, LISTENED TO LUNG SOUNGS, INSPIRATORY AND EXPIRATORY WHEEZES, COARSE RHONCHI AND DIMINISHED IN BASES, MD CALLED, ORDERED RESPIRATORY TREATMENT AND CAME TO SEE PATIENT, MORE ORDERS RECIEVED AND CARRIED OUT, LABS DRAWN AND DIAGNOSTICS TAKEN, ORDERS RECIEVED AND CARRIED OUT BASED ON THE DIAGNOSTICS, PICC LINE DRESSING CHANGED, PATIENT APPEARS MORE COMFORTABLE, WILL CONTINUE TO MONITOR
--- NOTE | 2016-11-13 07:55 | Progress Note ---
Subjective General The patient is a 46-year-old white female with a PMH of history of Obesity, Depression, DVT who presented to [facility] emergency room on the day of admission with acute on chronic flank pain. Patient was also found to be short of breath and needing oxygen for a state of hypoxia., Pt. was seen in the [facility] ER for an evaluation and findings consistent with acute pain in the lower back, flank, kidney stone in the ureter calculi without hydra froze this, and infiltrates on chest x-ray. Patient is admitted with a potential pneumonia, poor upper airway control, intractable back pain and potential for ureter stone. Septic protocol with a moderate suspicion for sepsis. Patient is waxing and waning in hypotension with elevated heart rate. Patient was admitted with a fever. Secondarily the patient was admitted for further evaluation and treatment by Az Mota M.D. Patient feels significant improve, breathing better, cough is less feels stronger no cp, no palpitation, no nausea or vomiting, no chills History of system: Respiratory system: Dyspnea improving positive for cough Cardiac: Negative for palpitations or chest pain GI: Negative for nausea or vomiting Physical Exam Vital Signs / I&Os Vital Signs Date Time Temp Pulse Resp B/P Pulse O2 O2 Flow FiO2 Ox Delivery Rate 11/13 0741 4.0 11/13 0700 98.8 109 31 133/64 97 NC/FT 4.0 11/13 0605 100.0 108 36 135/66 95 Room Air 4.0 11/13 0548 4.0 11/13 0518 118 24 158/71 94 Room Air 2.0 11/13 0432 2.0 11/13 0419 121 46 160/81 95 Room Air 3.0 11/13 0312 115 37 149/70 92 3.0 11/13 0217 98.8 116 28 147/72 93 Room Air 3.0 11/13 0113 3.0 11/13 0111 108 36 147/72 95 Room Air 0.0 11/13 0012 107 37 143/68 94 Room Air 0.0 11/12 2316 102 26 141/70 96 Room Air 0.0 11/12 2244 98.4 11/124 110 24 121/64 91 11/12 2129 Nasal 3.0 Cannula 11/12 2110 121 44 136/60 93 Nasal 3.0 Cannula 11/12 2013 124 38 134/64 97 Nasal 3.0 Cannula 11/12 1906 2.0 11/12 1900 124 41 132/83 95 Nasal Cannula 11/12 1803 128 31 127/60 94 Nasal 2.0 Cannula 11/12 1709 130 40 144/88 94 Nasal 2.0 Cannula 11/12 1620 2.0 11/12 1613 111 36 168/81 93 Nasal 2.0 Cannula 11/12 1611 2.0 11/12 1538 2.0 11/12 1500 108 31 140/62 90 Nasal 2.0 Cannula 11/12 1413 98.1 103 29 158/78 95 Nasal 2.0 Cannula 11/12 1314 106 32 148/75 94 Nasal 2.0 Cannula 11/12 1227 101 32 135/73 98 Nasal 2.0 Cannula 11/12 1122 101 32 140/74 94 Nasal 2.0 Cannula 11/12 1031 98.2 100 32 133/69 95 Nasal 2.0 Cannula 11/12 0916 106 35 130/62 93 Mask 2.0 11/12 0815 Mask 2.0 11/12 0803 106 29 148/75 92 Mask 2.0 I&O 11/13 0000 11/12 1600 11/12 0800 Intake Total 865 580 840 Output Total 4048 923 7309 Balance -1035 -295 -305 General Appearance No acute distress Lungs Clear to auscultation (improved air exchange) Cardiovascular Regular rate and rhythm, Normal S1 and S2, No murmurs, gallops, rubs Abdomen Normal bowel sounds, Soft, No tenderness Extremities Normal exam (3+ edema bilaterally) Skin No Rashes Psych/Mental Status Mental status normal LAB Results Laboratory Tests 11/13 11/13 11/13 11/13 0517 0423 0423 0423 Blood Gas Sample Site RR Total CO2 (24.0 - 30.0 mmol/L) 24.7 ABG pH (7.35 - 7.45) 7.49 ABG pCO2 at Pt Temp (35 - 45 mmHg) 31.3 ABG pO2 at Pt Temp (80.0 - 100.0 mmHg) 60.5 ABG HCO3 (20.0 - 26.0 mmol/L) 23.7 ABG O2 Sat Calc/Helga (95.1 - 100.0 %) 94.0 ABG Base Excess (-6.0 - -6.0 mmol/L) 0.3 ABG Reduced Hgb (%) 5.9 ABG Carboxyhemoglobin (0.5 - 1.5 %) 1.9 ABG Methemoglobin (0.4 - 1.5 %) 0.0 Jacob Test YES Other Total Hgb (12.0 - 16.0 g/dL) 9.3 A-a O2 Gradient (7.0 - 14.0 mmHg) 103.0 Hgb O2 Saturation (95.0 - 100.0 %) 92.2 Vent Mode NC FiO2 (20 - 101 %) 28 Chemistry Plasma Sodium (136 - 145 mmol/L) 139 Plasma Potassium (3.5 - 5.1 mmol/L) 3.3 Plasma Chloride (98 - 107 mmol/L) 106 CO2 (Enzymatic) (21 - 32 mmol/L) 26 BUN (7 - 18 mg/dL) 11 Creatinine (0.6 - 1.3 mg/dL) 0.8 Est GFR ( Amer) (mL/min) >60 Est GFR (Non-Af Amer) (mL/min) >60 Glucose (70 - 110 mg/dL) 125 Plasma Calcium (8.5 - 10.1 mg/dL) 7.1 B-Natriuretic Peptide (5 - 100 pg/ml) 224 Procalcitonin (0 - 0.5 ng/mL) 1.6 Hematology WBC (4.5 - 11.5 K/uL) 13.6 RBC (4.00 - 5.20 M/uL) 3.45 Hgb (12.0 - 16.0 gm/dL) 9.6 Hct (36.0 - 46.0 %) 28.2 MCV (80 - 100 fL) 82 MCH (26 - 34 pg) 28 RDW (11.6 - 14.8 %) 14.5 Neut % (Auto) (50 - 75 %) 92.9 Lymph % (Auto) (25 - 40 %) 5.3 Bollinger % (Auto) (3 - 14 %) 0.5 Eos % (Auto) (0 - 4 %) 1.2 Baso % (Auto) (0 - 2 %) 0.1 Plt Count, EDTA (150 - 400 K/uL) 132 PUBS MCHC (31 - 37 g/dL) 34 Assessment and Plan Problem List 1. Sepsis Plan making progress now WBC is dropping, and patient feeling better, since levaquin started 2. Pneumonia Plan CXR shows improve in infltrate and pt. feeling better 3. Afib Plan heart rate stable had a echo yesterday, will do cardiology consult 4. Diabetes Plan stable and controlled
--- NOTE | 2016-11-13 08:30 | NUR ---
Patient sitting up in chair eating breakfast. Denies pain and nausea. Patient up to chair 1 person assistance and uses walker for support. Piccline BENNETT patent 65cc/hr. Patient instructed to cough and deep breath frequently. No sob noted at this time. Patient encouraged to ambulate in hallways with assistance to help increase her strength. Patient will be working with PT today. Kavita patent. No complaints at this time. Pleasant and cooperative with care. Will continue to monitor.
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
--- NOTE | 2016-11-13 13:18 | NUR ---
Patient complained of headache 04/02. Tylenol 650 mg given PO and Toradol 15 mg given IV. Patient resting at this time. Patient tolerating PO intake. Denies nausea. Walls patent. No other complaints at this time. Pleasant and cooperative with care. Will continue to monitor.
--- NOTE | 2016-11-13 13:36 | Progress Note ---
Subjective General discussed with Dr Melendez, he recommends start pt on coumadin eventhoug pt had IV filter placed for DVT but since she developped A fib/flutter, coumadin warranted , no need to bridge with heparin or Levonax, pt was on coumadin before
--- NOTE | 2016-11-13 14:18 | NUR ---
Patient resting with eyes closed. States headache is better. Tylenol and Toradol effective. No complaints at this time. Pleasant and cooperative with care. Will continue to monitor.
--- NOTE | 2016-11-13 17:14 | DIAGNOSTIC IMAGING REPORT ---
REFERRING PHYSICIAN/PROVIDER: Karlos Trevino MD CONSULTING DIRECTOR PUBLIC SERVICE: Andres Cleveland MD INDICATION: Afib Procedure: A two-dimensional transthoracic echocardiogram with color flow and Doppler was performed. The study quality was technically adequate. The patient was in sinus tachycardia with heart rates between 112 bpm during the exam. Left Ventricle: The left ventricle is normal in size. There is normal left ventricular wall thickness. Left ventricular systolic function is normal. The ejection fraction is estimated to be 65-70%. There are no focal wall motion abnormalities. Flattened septum is consistent with RV pressure overload. Diastolic function could not be accurately assessed due to tachycardia. Right Ventricle: The right ventricle is borderline dilated. The right ventricular systolic function is normal. Atria: The left atrium grossly appears normal in size. The right atrium grossly appears normal in size. The interatrial septum is intact with no evidence for an atrial septal defect. Mitral Valve: The mitral valve is normal in structure and function. There is trace mitral regurgitation. Aortic Valve: The aortic valve is trileaflet. The aortic valve opens well. There is no aortic regurgitation. Tricuspid Valve: The tricuspid valve is normal in structure and function. The right ventricular systolic pressure is estimated at 40 mmHg assuming a right atrial pressure of 3 mm Hg. There is a trace or physiologic amount of tricuspid regurgitation. Pulmonic Valve: The pulmonic valve is normal in structure and function. There is trace pulmonic regurgitation. There is no significant valvular heart disease. Great Vessels: The aortic root is normal size. The ascending aorta is normal in size. The IVC is of normal diameter and collapses greater than 50% with a sniff. This suggests a low right atrial pressure of 3 mm Hg. Pericardium/ Pleura There is no pericardial effusion. IMPRESSION: The left ventricle is normal in size. Left ventricular systolic function is normal. The ejection fraction is estimated to be 65-70%. The right ventricle is borderline dilated. The right ventricular systolic function is normal. The right ventricular systolic pressure is estimated at 40 mmHg assuming a right atrial pressure of 3 mm Hg. Flattened septum is consistent with RV pressure overload. The left atrium grossly appears normal in size. The right atrium grossly appears normal in size. There is no significant valvular heart disease.
--- NOTE | 2016-11-13 17:30 | NUR ---
Patient in bed resting at this time. Patient has fair appetite. Tolerating PO intake. Denies nausea and pain. Piccline BENNETT patent. Kavita patent. No complaints at this time. Pleasant and cooperative with care. Will continue to monitor.
--- NOTE | 2016-11-14 00:13 | NUR ---
PT HAS BEEN TACHYPNEIC AND NOTABLY SOB WITH ANY EXERTION OR WHEN HAVING FITS OF COUGHING. SPOKE WITH MD THIS EVENING AND CHANGES MADE TO BREATHING TREATMENTS TO ALLOW FOR ROUTINE AND PRN ADMINISTRATION. AMBULATED TO BR USING WALKER AND 1 PERSON ASSIST. GENERALIZED WEAKNESS AND SOB NOTED. ALMAZ DC'D AND PT HAS VOIDED. WCTM.
[2016-11-14 02:34] VITALS: BP 141/71
[2016-11-14 06:34] VITALS: BP 144/79
--- NOTE | 2016-11-14 07:03 | Progress Note ---
Subjective General The patient is a 46-year-old white female with a PMH of history of Obesity, Depression, DVT who presented to [facility] emergency room on the day of admission with acute on chronic flank pain. Patient was also found to be short of breath and needing oxygen for a state of hypoxia., Pt. was seen in the [facility] ER for an evaluation and findings consistent with acute pain in the lower back, flank, kidney stone in the ureter calculi without hydra froze this, and infiltrates on chest x-ray. Patient is admitted with a potential pneumonia, poor upper airway control, intractable back pain and potential for ureter stone. Septic protocol with a moderate suspicion for sepsis. Patient is waxing and waning in hypotension with elevated heart rate. Patient was admitted with a fever. Secondarily the patient was admitted for further evaluation and treatment by Az Mota M.D. Pt. is feeling much better today, stronger, dyspea improved with decreased cough , no fever no chills no cp, no nausea no vomiting, encouraged her to eat more Review of system: Respiratory system: Positive for shortness of breath minimal cough no chest pain GI: Negative for nausea or vomiting Constitutional: Negative for fever or chills Physical Exam Vital Signs / I&Os Vital Signs Date Time Temp Pulse Resp B/P Pulse O2 O2 Flow FiO2 Ox Delivery Rate 11/14 1431 99.1 116 24 143/65 93 Nasal 1.0 Cannula 11/14 1323 1.0 11/14 1139 110 24 98 Nasal 2.0 Cannula 11/14 1018 98.6 116 26 164/84 100 Nasal 2.0 Cannula 11/14 0931 98.6 11/14 0828 4.0 11/14 0800 Nasal 2.0 Cannula 11/14 0634 103 23 144/79 97 Nasal 4.0 Cannula 11/14 0234 97.9 108 23 141/71 97 Nasal 4.0 Cannula 11/14 0155 4.0 11/13 2256 97.9 112 30 161/76 97 Nasal 4.0 Cannula 11/13 2138 4.0 11/13 2000 Nasal 4.0 Cannula 11/13 1849 4.0 11/13 1812 97.9 106 26 141/76 96 Nasal 4.0 Cannula I&O 11/14 0000 11/13 1600 11/13 0800 Intake Total 2007 840 940 Output Total 0952 688 6354 Balance 624 -60 2950 General Appearance No acute distress Lungs Clear to auscultation Neck Supple Cardiovascular Regular rate and rhythm, Normal S1 and S2, No murmurs, gallops, rubs Abdomen Normal bowel sounds (abdominal hernia), Soft, No tenderness Extremities Normal exam (4+ edema bilaterally) Skin No Rashes Psych/Mental Status Mental status normal LAB Results Laboratory Tests 11/14 11/14 1405 0406 Chemistry Plasma Sodium (136 - 145 mmol/L) 135 139 Plasma Potassium (3.5 - 5.1 mmol/L) 3.5 3.7 Plasma Chloride (98 - 107 mmol/L) 101 106 CO2 (Enzymatic) (21 - 32 mmol/L) 22 28 BUN (7 - 18 mg/dL) 8 9 Creatinine (0.6 - 1.3 mg/dL) 0.8 0.8 Est GFR ( Amer) (mL/min) >60 >60 Est GFR (Non-Af Amer) (mL/min) >60 >60 Glucose (70 - 110 mg/dL) 143 125 Plasma Calcium (8.5 - 10.1 mg/dL) 6.5 6.4 Plasma Magnesium (1.8 - 2.4 mg/dL) 1.1 Coagulation INR (0.8 - 1.2) 1.6 Hematology WBC (4.5 - 11.5 K/uL) 9.6 RBC (4.00 - 5.20 M/uL) 3.03 Hgb (12.0 - 16.0 gm/dL) 8.4 Hct (36.0 - 46.0 %) 24.9 MCV (80 - 100 fL) 82 MCH (26 - 34 pg) 28 RDW (11.6 - 14.8 %) 14.8 Neut % (Auto) (50 - 75 %) 86.1 Lymph % (Auto) (25 - 40 %) 9.7 Grant % (Auto) (3 - 14 %) 2.3 Eos % (Auto) (0 - 4 %) 1.8 Baso % (Auto) (0 - 2 %) 0.1 Plt Count, EDTA (150 - 400 K/uL) 146 PUBS MCHC (31 - 37 g/dL) 34 Assessment and Plan Problem List 1. Afib Plan on coumadin per cardiology recommendation will check INR 2. Diabetes Plan controlled on insulin sliding scale 3. Sepsis Plan will switch levaquin to oral, ready to be discharged 4. Pneumonia
[2016-11-14 10:18] VITALS: BP 164/84
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
[2016-11-14 14:31] VITALS: BP 143/65
--- NOTE | 2016-11-14 17:19 | NUR ---
UP IN CHAIR FOR ALL MEALS. SOB WITH EXCERTION. ATIVAN GIVEN X1 FOR ANXIETY WITH RELIEF. C/O BEING COLD MOST OF SHIFT. BEAR HUGGER ON MOST OF SHIFT. HR 100-125 ALL SHIFT, ST. METOPROLOL INCREASED PER ORDER. MOVES SLOWLY, BUT IS GETTING STRONGER.
[2016-11-14 18:00] VITALS: BP 158/73
--- NOTE | 2016-11-14 18:54 | NUR ---
AMBULATED TO 3E WITH PT AND LEAD PROJECT ENGINEER. O2 SATS ON RA AT ROOM'S EDGE WENT DOWN TO 88%. PLACED BACK ON O2 AT 2L AND SATS REMAINED 90-91%. SOB WITH ACTIVITY.
--- NOTE | 2016-11-14 19:56 | NUR ---
PT COMPLAINT OF SOB - RESPIRATORY TREATMENT GIVEN. 02 SATS AT 96% ON 1 LITER NC. PT MEDICATED WITH IV TORADOL FOR A PAIN OF 8/10 TO NECK AND BACK. PICC LINE TO BENNETT UNREMARKABLE, DRESSING CDI. TELE SHOWS SINUS TACH - HEART RATE AT 110. NO CHEST PAIN, NO HEART PALPITATIONS. MINIMAL ASSIST TO BEDSIDE COMODE. PT UP IN CHAIR AFTER USING COMODE. TOLERATED WELL. GENERALIZED WEAKNESS NOTED. NO FURTHER REQUESTS AT THIS TIME. CALL LIGHT WITHIN REACH.
[2016-11-14 22:19] VITALS: BP 120/61
[2016-11-15] VITALS (7 sets, daily range): BP systolic 124–182; BP diastolic 60–82
--- NOTE | 2016-11-15 05:06 | NUR ---
DR PRICE CALLED REGARDING AM LABS RESULTS - CALIUM 6.3 AND POTASSIUM OF 3.0. NEW ORDERS RECIEVED FOR ADD ON LABS OF ALBUMIN AND MAG - ORDERS PLACED AND LAB CALLED. NEW ORDERS RECIEVED TO ADMINISTER KCL IV AND PO AND MAG IV IF INDICATED. ORDERS TAKEN, WRITTEN, READ BACK AND FAXED TO PHARMACY.
--- NOTE | 2016-11-15 06:30 | NUR ---
DR LUNA AWARE OF AXILARY TEMP AT 102.9, INCREASE O2 NC NEEDS TO OBTAIN A 93% O2 SATS - NC AT 3 LITERS. HEART RATE AT 117. NO CHEST PAIN, NO HEART PALPITAIONS. NO NAUSEA. KCL AND MAG INFUSING AT THIS TIME. AWAITING NEW ORDERS. CALL LIGHT WITHIN REACH.
--- NOTE | 2016-11-15 06:35 | Progress Note ---
Subjective General The patient is a 46-year-old white female with a PMH of history of Obesity, Depression, DVT who presented to [facility] emergency room on the day of admission with acute on chronic flank pain. Patient was also found to be short of breath and needing oxygen for a state of hypoxia., Pt. was seen in the [facility] ER for an evaluation and findings consistent with acute pain in the lower back, flank, kidney stone in the ureter calculi without hydra froze this, and infiltrates on chest x-ray. Patient is admitted with a potential pneumonia, poor upper airway control, intractable back pain and potential for ureter stone. Septic protocol with a moderate suspicion for sepsis. Patient is waxing and waning in hypotension with elevated heart rate. Patient was admitted with a fever. Secondarily the patient was admitted for further evaluation and treatment by Az Mota M.D. Has spiked fever with chills, dyspnea is stable not much of cough, or sputum, no pain, no dysuria,or frequency, but feels weaker Review of system: Respiratory system: Positive for dysrhythmia negative for chest pain improved cough Constitutional: Positive for fever and chills Urinary system: Negative for dysuria or frequency Physical Exam Vital Signs / I&Os Vital Signs Date Time Temp Pulse Resp B/P Pulse O2 O2 Flow FiO2 Ox Delivery Rate 11/15 0619 102.9 122 24 171/82 90 Nasal 3.0 Cannula 11/15 0415 101.7 113 25 131/60 97 Nasal 2.5 Cannula 11/15 0349 101.7 11/15 0301 101.8 11/15 0249 100.4 127 32 182/70 91 Nasal 1.0 Cannula 11/15 0049 2.0 11/14 2219 99.5 103 28 120/61 94 Nasal 1.0 Cannula 11/14 2028 103.5 11/14 1944 1.0 11/14 1938 110 11/14 1932 Nasal 1.0 Cannula 11/14 1800 99.7 108 30 158/73 98 Nasal 1.0 Cannula 11/14 1431 99.1 116 24 143/65 93 Nasal 1.0 Cannula 11/14 1323 1.0 11/14 1139 110 24 98 Nasal 2.0 Cannula 11/14 1018 98.6 116 26 164/84 100 Nasal 2.0 Cannula 11/14 0931 98.6 11/14 0828 4.0 11/14 0800 Nasal 2.0 Cannula 11/14 0634 103 23 144/79 97 Nasal 4.0 Cannula I&O 11/15 0000 11/14 1600 11/14 08 Intake Total 2008 88 Output Total 1400 1750 1275 Balance -1190 259 -386 General Appearance Mild distress Lungs Clear to auscultation Neck Supple Cardiovascular Regular rate and rhythm, Normal S1 and S2 (tachy) Abdomen Normal bowel sounds (abdominal hernia), Soft, No tenderness Extremities Normal exam (4+ edema bilaterally) Skin No Rashes Psych/Mental Status Mental status normal LAB Results Laboratory Tests 11/15 11/14 0403 1405 Chemistry Plasma Sodium (136 - 145 mmol/L) 135 135 Plasma Potassium (3.5 - 5.1 mmol/L) 3.0 3.5 Plasma Chloride (98 - 107 mmol/L) 102 101 CO2 (Enzymatic) (21 - 32 mmol/L) 23 22 BUN (7 - 18 mg/dL) 7 8 Creatinine (0.6 - 1.3 mg/dL) 0.9 0.8 Est GFR ( Amer) (mL/min) >60 >60 Est GFR (Non-Af Amer) (mL/min) >60 >60 Glucose (70 - 110 mg/dL) 134 143 Plasma Calcium (8.5 - 10.1 mg/dL) 6.3 6.5 Plasma Magnesium (1.8 - 2.4 mg/dL) 1.1 Albumin (3.3 - 5.0 g/dL) 1.7 Coagulation INR (0.8 - 1.2) 2.3 Hematology WBC (4.5 - 11.5 K/uL) 10.9 RBC (4.00 - 5.20 M/uL) 3.04 Hgb (12.0 - 16.0 gm/dL) 8.4 Hct (36.0 - 46.0 %) 24.8 MCV (80 - 100 fL) 81 MCH (26 - 34 pg) 28 RDW (11.6 - 14.8 %) 14.6 Neut % (Auto) (50 - 75 %) 94.1 Lymph % (Auto) (25 - 40 %) 4.6 [place] % (Auto) (3 - 14 %) 0.8 Eos % (Auto) (0 - 4 %) 0.4 Baso % (Auto) (0 - 2 %) 0.1 Plt Count, EDTA (150 - 400 K/uL) 164 PUBS MCHC (31 - 37 g/dL) 34 Assessment and Plan Problem List 1. Sepsis Plan spiked fever will send blood culturs, check UA and CXR, start on Vanco continue Levaquin 2. Pneumonia 3. Diabetes Plan contorlled on metformin 4. Afib Plan rate relatively controlled 5. Hypocalcemia Plan most likey due to hypoalbuminia, will check PTH, consider prealbumine
--- NOTE | 2016-11-15 06:48 | NUR ---
REFUSED NYSTATIN AT THIS TIME - REQUESTS TO BE GIVEN AFTER BREAKFAST.
--- NOTE | 2016-11-15 07:11 | NUR ---
CHEST XRAY COMPLETED. URINE COLLECTED AND SENT TO LAB. PT MEDICATED WITH TYLENOL PO.
--- NOTE | 2016-11-15 07:36 | DIAGNOSTIC IMAGING REPORT ---
PROCEDURE: XR CHEST 1 VIEW INDICATION: fever TECHNIQUE: Single view chest. 07:03 hours COMPARISON: 11/12/2016 FINDINGS: Right PICC line in stable position. Stable cardiomediastinal contour. No central vascular congestion. Diffuse patchy bilateral alveolar opacities in the periphery, right worse than left. No significant effusion. Stable osseous structures. IMPRESSION: 1. Mildly improved aeration in the right lung with persistent bilateral alveolar opacities. 2. No effusion.
--- NOTE | 2016-11-15 08:16 | NUR ---
S/O: Patient with pneumonia/sepsis on levaquin spikes temp of 102.9 this AM. MD wishes to initiate vancomycin per pharmacy and draw blood cultures. Ht: 62 in Wt: 131.5 kg Dosing Wt: 82.7 Kg Scr: 0.9 A: 25 mg/kg loading dose = 2 GM, 1250mg Q8H provides est. Peak 30.7 and Trough of 15.6 P: Commence with loading dose. Draw trough Saturday. Await results of blood cultures.
--- NOTE | 2016-11-15 09:39 | NUR ---
PATIENT UP TO THE CHAIR FOR BREAKFAST, POTASSIUM IV INFUSING. BLOOD CULTURES DRAWN. PATIENT'S TEMPERATURE CAME DOWN TO 99 F. PATIENT AT THIS TIME DENIES ANY PAIN, BUT STATES SHE HAS HAD INTERMITTENT ABDOMINAL PAIN SINCE HER ADMISIION. NOTIFIED DR LUNA, ORDER FOR ABDOMINAL CT ORDERED. PATIENT DENIES ANY SOB/CP/NV AT THIS TIME. CALL LIGHT WITHIN REACH WILL MONITOR.
--- NOTE | 2016-11-15 11:39 | NUR ---
unable to be seen d/t high census. Will ck bk 11-16
--- NOTE | 2016-11-15 12:03 | DIAGNOSTIC IMAGING REPORT ---
PROCEDURE: CT ABDOMEN/PELVIS W/O CONTRAST INDICATION: fever TECHNIQUE: Noncontrast axial images were obtained of the entire abdomen and pelvis with sagittal and coronal reformations. COMPARISON: Chest x-ray 11/15/[address] of the/pelvis 11/05/2016.. FINDINGS: ABDOMEN: Bibasilar alveolar infiltrates consistent with pneumonia. Mild cardiomegaly. Large midline ventral hernia (26 cm, neck 4.5 cm, unchanged in size) containing the majority of the small bowel and proximal colon. No evidence of bowel obstruction or incarceration. There are three densities measuring 1 cm within the hernia which may represent pill fragments. Gastric bypass with gastrojejunal anastomosis. IVC filter in place. Cholecystectomy. Stable 8 mm left UPJ calculus with mild hydronephrosis. Liver, pancreas, adrenal glands and right kidney are normal. Spleen at the upper limits of normal, 13 cm. Minor atherosclerosis of the aorta. PELVIS: Right hip arthroplasty and acetabular repair with prominent artifacts. Pill fragment in the right lower quadrant. Prominent uterus. Adnexa are unremarkable. There is air in the bladder, probably secondary to catheterization. There is no pelvic mass or free fluid. No suspicious osseous lesions. IMPRESSION: 1. Bibasilar pneumonia 2. Stable large midline ventral hernia containing the majority the small and large bowel 3. Stable 8 mm left UPJ calculus with mild hydronephrosis 4. Gastric bypass, cholecystectomy, IVC filter and right hip arthroplasty and acetabular. 5. Results discussed with Dr. Trevino All CT scans at this facility use dose modulation, iterative reconstruction, and/or weight-based dosing when appropriate to reduce radiation dose to as low as reasonably achievable.
--- NOTE | 2016-11-15 12:37 | NUR ---
PATIENT DESATTING TO 85 PERCENT ON THE 3 LITERS NC. PLACED PATIENT AT 4 LITERS NASAL CANULA. UP TO 91 PERCENT. PATIENT IS SHIVERING AND COLD. TEMP AT 98.4 F. GIVEN PATIENT TORADOL PRN PER PATIENT REQUEST. HEART RATE AT 105 AT THIS TIME. PATIENT ALSO ASKED FOR THE BEAR HUGGER. WILL MONITOR. CALL LIGHT WITHIN REACH.
--- NOTE | 2016-11-15 13:36 | NUR ---
NUTRITION FOLLOW UP NOTE: Pt continues on Carb consistent diet, po ranges from ~25-100%. Pts d/c plan in place and pending d/c, per nsg pt became febril last noc so she will not be leaving today. It appears that pt will be d/c to SNF facility. Rev'd accuchecks 89-143 last few days. No signficant changes in wt noted. RD to follow up prn/protocol and avail for further consult prn.
--- NOTE | 2016-11-15 17:49 | NUR ---
PATIENT HAS SPIKED A FEVER A COUPLE OF TIMES, PRN TYLENOL AND TORADOL EFFECTIVE FOR THE FEVER/PAIN. TELE SHOWS SINUS TACHY. PATIENT UP IN THE CHAIR AT THIS TIME ASLEEP. WAS NAUSEIOUS EARLIER, GIVEN ZOFRAN AND WAS EFFECTIVE. BOTH LUMENS FLUSH WELL TO HER PICC LINE. CALL LIGHT WITHIN REACH. WILL MONITOR.
[2016-11-16 02:04] VITALS: BP 146/76
[2016-11-16 06:58] VITALS: BP 133/68
[2016-11-16 09:59] VITALS: BP 122/69
--- NOTE | 2016-11-16 12:46 | NUR ---
pt seated in chair and agreeable to skilled PT intervention. pt completed seated exercises: knee extension and seated marches x10. pt then completed 5 sit to stands SBA using a FWW. She needed a seated break 1/2 through before completing all 5. pt ambulated 25ft within the room and sat at the EOB for a seated break before completed sit to supine SBA. pt completed bed exercises of ankle pumps, quad sets, glute sets, HS sets, heel slides, SLR and hip abduction. pt's mobility has increased but continues to need O2 with any exertion. Recommendation to d/c home with increased A from family once medically cleared.
--- NOTE | 2016-11-16 14:17 | Progress Note ---
Subjective General Pt seen and examined. Patient has no complaints overnight. Discharge was held secondary to a fever spike. Patient found to have persistently elevated pro- calcitonin with positive yeast in blood cultures. Patient was starte on anti- fungal therapy. Will continue to monitor, no other abnormal events overnight transpired. Constitutional Denies: Fever, Chills, Sweats, Weakness, Malaise, Other. Eyes Denies: Pain, Vision Change, Conjunctival Inflammation, Eyelid Inflammation, Redness, Other. Respiratory SOB w/exertion. Denies: Cough, Dry, Wheezing, Hemoptysis, Pleuritic Pain, Sputum, Other. Cardiovascular Denies: Chest Pain, Palpitations, Orthopnea, PND, Edema, Light-headedness, Other. Gastrointestinal Denies: Nausea, Vomiting, Abdominal Pain, Diarrhea, Constipation, Melena, Hematochezia, Other. Genitourinary Denies: Dysuria, Frequency, Incontinence, Hematuria, Retention, Other. Musculoskeletal Leg Pain. Denies: Neck Pain, Shoulder Pain, Arm Pain, Back Pain, Hand Pain, Foot Pain, Other. Skin Denies: Rash, Lesions, Jaundice, Bruising, Other. Physical Exam Vital Signs / I&Os Vital Signs Date Time Temp Pulse Resp B/P Pulse O2 O2 Flow FiO2 Ox Delivery Rate 11/16 1431 100.8 104 29 138/73 97 Nasal 2.0 Cannula 11/16 1004 4.0 11/16 1001 99.1 11/16 0959 101 20 122/69 98 Nasal 4.0 Cannula 11/16 0745 4.0 11/16 0658 98.2 98 24 133/68 97 Nasal 4.0 Cannula 11/16 0214 4.0 11/16 0204 99.0 104 28 146/76 95 Nasal 4.0 Cannula 11/15 2217 98.8 96 32 124/67 95 Nasal 4.0 Cannula 11/15 2044 Nasal 4.0 Cannula 11/15 2031 99.3 11/15 1940 4.0 11/15 1807 100.0 103 32 135/75 98 Nasal 4.0 Cannula 11/15 1650 98.2 11/15 1557 102.6 I&O 11/15 0800 11/15 1600 11/16 0000 Intake Total 980 720 575 Output Total 1925 1400 1950 Balance -945 -680 -1375 General Appearance Alert, Oriented X3, No acute distress HEENT Atraumatic, PERRLA, Moist mucous membranes Lungs - bilateral ronchi Neck No JVD, No masses, No thyromegaly Cardiovascular No murmurs, gallops, rubs, - irregularly irregular rhythm Abdomen Soft, No tenderness, No guarding Extremities No cyanosis, No clubbing, No edema Skin No Breakdown, No Significant Lesions Neurological Normal speech, Normal tone, Sensation intact, Cranial nerves intact Psych/Mental Status Mood normal LAB Results Laboratory Tests 11/16 11/16 11/16 0400 0445 0445 Chemistry Plasma Sodium (136 - 145 mmol/L) 136 Plasma Potassium (3.5 - 5.1 mmol/L) 3.6 Plasma Chloride (98 - 107 mmol/L) 102 CO2 (Enzymatic) (21 - 32 mmol/L) 23 BUN (7 - 18 mg/dL) 7 Creatinine (0.6 - 1.3 mg/dL) 0.8 Est GFR ( Amer) (mL/min) >60 Est GFR (Non-Af Amer) (mL/min) >60 Glucose (70 - 110 mg/dL) 157 Plasma Calcium (8.5 - 10.1 mg/dL) 6.5 Plasma Magnesium (1.8 - 2.4 mg/dL) 1.6 Total Bilirubin (0.0 - 1.0 mg/dL) Cancelled 0.4 Direct Bilirubin (0 - 0.3 mg/dL) Cancelled 0.1 AST (15 - 37 U/L) Cancelled 36 ALT (12 - 78 U/L) Cancelled 17 Alkaline Phosphatase (46 - 116 U/L) Cancelled 91 Total Protein (6.4 - 8.2 g/dL) Cancelled 6.5 Albumin (3.3 - 5.0 g/dL) Cancelled 1.7 PTH Interpretation Pending PTH Intact Pending Calcium (PTH Intact) Pending Coagulation INR (0.8 - 1.2) 2.5 Hematology WBC (4.5 - 11.5 K/uL) 9.9 RBC (4.00 - 5.20 M/uL) 3.08 Hgb (12.0 - 16.0 gm/dL) 8.4 Hct (36.0 - 46.0 %) 25.3 MCV (80 - 100 fL) 82 MCH (26 - 34 pg) 27 RDW (11.6 - 14.8 %) 14.6 Neut % (Auto) (50 - 75 %) 92.3 Lymph % (Auto) (25 - 40 %) 4.7 [place] % (Auto) (3 - 14 %) 2.0 Eos % (Auto) (0 - 4 %) 1.0 Baso % (Auto) (0 - 2 %) 0 Plt Count, EDTA (150 - 400 K/uL) 156 PUBS MCHC (31 - 37 g/dL) 33 Assessment and Plan Problem List 1. Sepsis Plan - resolving - will continue with anti-fungals - no evidence of worsening infection - procalcitonins going down appropriately 2. Diabetes Plan - currently stable on home dose of medication - will continue to monitor on home dose with sliding scale 3. Afib Plan - stable - inr has been remaining stable since initation of anti-fungal medication - was worried about possible medication interaction - will continue with 2 mg 4. Back pain Plan - stable - pain control as needed
[2016-11-16 14:31] VITALS: BP 138/73
--- NOTE | 2016-11-16 15:22 | NUR ---
NUTRITION NOTE: Gave pt written and verbal info on coumadin vs vitamin K. Pt states that she has been on coumadin in the past. Gave info on diabetes and nutrition as well. RD avail for further consult if desired.
--- NOTE | 2016-11-16 17:12 | NUR ---
Patient alert and oriented throughout shift. Gave pain medication and ativan as ordered. Patient reported flank pain, Dr. Campbell aware and orders received. Patient up to chair for all meals and worked with PT in her room. No complaints of nausea or vomiting. Family visited patient during the day. Will continue to monitor patient.
[2016-11-16 18:07] VITALS: BP 127/72
--- NOTE | 2016-11-16 19:32 | NUR ---
Pharmacy To Dose Vancomcyin Dx-SEPSIS/PNA Labs- Scr 0.8 CrCl >60 ml/min WBC 9.9 Afebrile Cx-yeast Other Abx- Fluconazole 800 mg IV x 1 @1200 Levo 750 mg IV Daily Vanco Troughs- 20.8 mcg/ml @1545 A/P: Vanco trough of 20.8 mcg/ml is above goal range. Will change to 1000 mg IV q8h for est ss trough of ~17 mcg/ml. VT due at 1330 on 11/18/15. F/U with yeast ID and sens. Pharmacy will cont to follow.
--- NOTE | 2016-11-16 20:46 | NUR ---
PT IS SITTING UP IN BED TALKING ON PHONE. NEEDED ENCOURAGEMENT TO TAKE BREATHING TX AND ALLOW ASSESSMENT BY THIS RN. LUNGS ARE CLEAR. PT AMBULATED IN HALLWAY TO 3WEST WITHOUT ISSUE, FRIENDS VISITING WALKED WITH HER. PICC FLUSHES WELL, SINUS TACHY ON TELE ESPECIALLY DURING AMBULATION. PT NEEDS SEVERAL REMINDES TO USE CALMER/QUIET VOICE WHILE TALKING ON PHONE. WCTM.
[2016-11-16 22:16] VITALS: BP 124/65
[2016-11-17 02:27] VITALS: BP 120/59
--- NOTE | 2016-11-17 03:56 | NUR ---
PT STATED FEELING ANXIOUS AND AGGITATED AND REQUESTED MEDICATION. PROVIDED 0.5MG ATIVAN. WCTM.
[2016-11-17 06:32] VITALS: BP 130/71
[2016-11-17 10:29] VITALS: BP 132/67
--- NOTE | 2016-11-17 10:50 | NUR ---
Patient alert and oriented. Patient was up in her chair for breakfast and has already ambulated in the hallway. Will continue to monitor patient.
--- NOTE | 2016-11-17 16:32 | Progress Note ---
Subjective General Pt is improving, will plan for discharge if patient remains fever free and with normal vital signs. Constitutional Denies: Fever, Chills, Sweats, Weakness, Malaise, Other. Eyes Denies: Pain, Vision Change, Conjunctival Inflammation, Eyelid Inflammation, Redness, Other. ENT Denies: Ear Pain, Ear Discharge, Nose Pain, Nasal Discharge, Nasal Congestion, Mouth Pain, Mouth Swelling, Throat Pain, Throat Swelling, Other. Respiratory Cough, SOB w/exertion. Denies: Dry, Wheezing, Hemoptysis, Pleuritic Pain, Sputum, Other. Cardiovascular Denies: Chest Pain, Palpitations, Orthopnea, PND, Edema, Light-headedness, Other. Gastrointestinal Denies: Nausea, Vomiting, Abdominal Pain, Diarrhea, Constipation, Melena, Hematochezia, Other. Genitourinary Denies: Dysuria, Frequency, Incontinence, Hematuria, Retention, Other. Musculoskeletal Denies: Neck Pain, Shoulder Pain, Arm Pain, Back Pain, Hand Pain, Leg Pain, Foot Pain, Other. Skin Denies: Rash, Lesions, Jaundice, Bruising, Other. Neurological Denies: Weakness, Numbness, Incoordination, Change in speech, Confusion, Seizures, Other. Physical Exam General Appearance Alert, Oriented X3, No acute distress HEENT Atraumatic, PERRLA, Moist mucous membranes Lungs Normal air movement, - faint wheezes bilaterally Neck Supple, No JVD, No thyromegaly Cardiovascular No murmurs, gallops, rubs, - irregularly irregular rhythm Abdomen Soft, No tenderness, No guarding Pelvic No masses, No tenderness Extremities No clubbing, No edema, Normal pulses Skin No Breakdown Neurological Normal gait, Normal speech, Cranial nerves intact, No lateralizing signs Psych/Mental Status Mood normal Assessment and Plan Problem List 1. Back pain Plan - stable - c/w home medications 2. Diabetes Plan - sugars stable on home insulin regimen - will c/w that for now - adequate intake currently 3. Afib Plan - pts heart rate controlled on current regimen - INR is therapeutic - will c/w current warfarin dose - will discuss blood testing as out patient today - anticipate discharge tomorrow 4. Rosalind infection Plan - will c/w fluconazole for the time being - out patient oral therapy required
[2016-11-17 18:51] VITALS: BP 148/68
--- NOTE | 2016-11-17 21:31 | NUR ---
PT RESTING IN BED WATCHING TV. C/O HEADACHE AND REQUESTING APAP WHICH WAS GIVEN ORDERED. FAN IS ON, TABLE IS WITHIN REACH, BED IN LOWEST POSITION. PICC LINE FLUSHED AND CALL LIGHT WITHIN REACH. WILL CONTINUE TO MONITOR.
[2016-11-17 22:19] VITALS: BP 140/67
[2016-11-18 04:27] VITALS: BP 157/75
[2016-11-18 06:39] VITALS: BP 161/77
[2016-11-18 11:26] VITALS: BP 155/72
--- NOTE | 2016-11-18 12:18 | NUR ---
Patient has been alert and oriented throughout shift. No complaints of pain, nausea, or vomiting. Patient ambulating independently to and from bathroom. Patient ambulated to take a shower. VSS, afebrile. Will continue to monitor patient.
--- NOTE | 2016-11-18 13:11 | Provider's Discharge Care Plan ---
Problem, Goal, Plan Problem List 1. Sepsis Instructions: - resolved - complete course of antibiotics 2. Pneumonia Instructions: - resolved, however complete course of antibiotics 3. Diabetes Instructions: Take meds as directed 4. Afib Instructions: - make sure you have your blood drawn as we discussed before discharge, you need to have blood drawn on/before 11/22/16 5. Back pain Instructions: Take meds as directed
[2016-11-18] MEDS ORDERED: BENZONATATE100 MG PO (13:12)
[2016-11-18] MEDS ORDERED: COUMADIN2 MG PO (13:13)
[2016-11-18] MEDS ORDERED: GLUCOPHAGE500 MG PO (13:13)
[2016-11-18] MEDS ORDERED: TOPROL XL50 MG PO (13:13)
[2016-11-18] MEDS ORDERED: FLUCONAZOLE200 MG PO (14:11)
--- NOTE | 2016-11-18 14:18 | NUR ---
PATIENT'S VSS, AFEBRILE, PATIENT HAD SOME EMESIS (FROM COUGHING), GAVE ZOFRAN.
--- NOTE | 2016-11-18 14:48 | NUR ---
REMOVED PICC LINE AND PATIENT TOLERATED WELL. PATIENT INDICATED UNDERSTANDING OF DISCHARGE INSTRUCTIONS AND FOLLOW UP CARE. EDUCATED PATIENT TO COME BACK TO THE HOSPITAL ON SATURDAY AND BRING HER DISCHARGE PAPERS SO THAT THE LAB HAS THE INFORMATION FOR WHAT NEEDS TO BE DONE. PATIENT'S RIDE IS HERE AND THEY ARE WAITING FOR PATIENT'S WALLET TO BE RETURNED FROM THE [facility] AND THEN THEY WILL LEAVE.
--- NOTE | 2016-11-18 14:57 | NUR ---
PATIENT LEFT THE HOSPITAL IN A WHEELCHAIR ACCOMPANIED BY A HEARING SPECIALIST. PATIENT'S NIECE IS TAKING HER HOME IN THEIR PERSONAL CAR.
--- NOTE | 2016-11-20 07:09 | Discharge Summary ---
Discharge Summary Report Admit Date 11/05/16 Discharge Date 11/18/16 Admission Diagnosis pneumonia Discharge Diagnosis pneumonia, atrial fibrillation, fungal infection Brief History please refer to admitting H&P Hospital Course Patient was admitted for pneumonia, and since admission patient had been very ill with multiple organ involvement. Patient was initially seen to have inability to maintain her own blood pressure and oxygen saturations. Patient was placed on broad spectrum antibioitics. Patient was initially placed on bipap and agggressive fluid resuscitation in order to maintain her blood pressures. Patient was slow to respond to her infection but overall she responded slolwly over the next three days. Patient was later found to have atrial fibrillaiton develop most likely as a result of this infeciton. Patient was seen to be in the 140s in terms of heart rate and was eventually placed on diltiazem drip and beta blockers. Patients afib was resistant was persistenly in rapid ventricular rhthym. Once patients infection subsided she began to develop more manageable heart rate, and as a result the diltiazem drip was discontinued. Patient was started on anti coagulation for the atrial fibrillaiton. Patient was seen to remain ill despite being on the appropriate antibiotics and all the markers of infection were slightly elevated. Patient was then found to have positive fungus in 2 blood culture bottles. Patient was place don Iv anti fungal medication and her markers of infection all began to improve. It was at this time the patient was ready for discharge. Deanna will complete a course of anti fungals, she will maintain beta blockers and her home medications. Additionally patient will need to be followed for regular INR checks. Patient was given referral for blood work and asked to follow up with either or [facility] or [facility]. Patient states that she understands General Appearance Alert, Oriented X3, No acute distress HEENT PERRLA, EOMI, Mucous membran moist/pink Lungs Normal air movement Cardiovascular No murmurs Abdomen Soft, No tenderness Skin No Breakdown Discharge Instructions/Meds - complete course of anti-fungals - take medicaitons as prescribed - follow up with blood work for your coagulation profle
== END 2016-11-18 14:59 | disposition home or self-care (01) | DRG 720 ==
LOC: ED SRH 19:46 → TRANS SRH 23:06 → CC SRH 23:06 → TRANS SRH 23:06 → ACUTE2 SRH 11-06 00:36 → CC SRH 11-06 13:49
PROVIDERS: ADMIT Emergency Medicine Emergency Medical Services
PROC: 02HV33Z Insertion of Infusion Device into Superior Vena Cava, Percutaneous Approach (ICD-10-PCS; principal; 2016-11-06)
DX: A41.51 Sepsis due to Escherichia coli [E. coli] (principal); J18.9 Pneumonia, unspecified organism; R09.02 Hypoxemia; R65.20 Severe sepsis without septic shock; B48.8 Other specified mycoses; I48.91 Unspecified atrial fibrillation; I48.92 Unspecified atrial flutter; R73.03 Prediabetes; T45.516A Underdosing of anticoagulants, initial encounter; Z91.128 Patient's intentional underdosing of medication regimen for other reason; F32.9 Major depressive disorder, single episode, unspecified; Z86.718 Personal history of other venous thrombosis and embolism; Z95.828 Presence of other vascular implants and grafts

== ENCOUNTER 2016-11-20 17:13 | Emergency (ER) | payer OTHER ==
[~2016-11-20 17:13] MED LIST: BENZONATATE100 MG PO; COUMADIN2 MG PO; FLUCONAZOLE200 MG PO; GLUCOPHAGE500 MG PO; TOPROL XL50 MG PO
--- NOTE | 2016-11-20 19:58 | DIAGNOSTIC IMAGING REPORT ---
PROCEDURE: XR ABDOMEN 1 VIEW UPRIGHT INDICATION: VOMITING TECHNIQUE: AP upright view. COMPARISON: Compared CT abdomen and pelvis on 11/15/2016. FINDINGS: There is a large central abdominal wall hernia (previously documented). Bowel pattern is otherwise normal. No evidence of free air. There is 8 mm left proximal ureteral calculus (previously documented). Status post right total hip prosthesis. IVC filter in position. IMPRESSION: 1. Large central abdominal wall hernia (previously documented). 2. There is a 8 mm chronic left proximal ureteral calculus (previously documented). abdomen. 3. No evidence of acute process.
--- NOTE | 2016-11-20 22:12 | ED CLINICAL REPORT ---
Clinical Report - Physicians/Mid Levels [facility] [address] [place] [address] 11/20/2016 17:14 Patient: PATY MARTÍNEZ Time Seen: 17:25. Arrived- By private vehicle. Historian- patient. HISTORY OF PRESENT ILLNESS Chief Complaint: DYSURIA. This started yesterday Vomited 3 times today, 2-3 times yesterday. When ever she takes her antifungal antibiotic. Last BM - small today. Can pass flatus per rectum. Dysuria x 7 days with incontinence. and still present. No abdominal pain or pelvic pain. She has had pain with urination and urgency of urination. The patient has had urinary frequency. (Antibiotic dizzy light headed Heart medicine palitatins Dizzy and nauseated and light headed.). Recent medical care: The patient was seen recently and hospitalized. ( 1. Sepsis e coli and fungus- positive blood cultures 2. Diabetes 3. Afib 4. Back pain 5. Anticoagulation - hx of DVT Pnsumonia, UTI and blood cultues positive for e-coli and fungus . DC'd 2 days ago. Has no PCP). REVIEW OF SYSTEMS The patient has had nausea. She has had vomiting, a mild cough and difficulty breathing. No diarrhea, black stools, headache, fever or chills. No eye discomfort, sore throat, chest pain, enlarged lymph nodes or joint pain. PAST HISTORY ( PROBLEMS: Back Pain. Lumbar Strain. Obesity. Bronchitis. Abscess. Fall. Sprain. DVT - Deep Venous Thrombosis. UTI - Urinary Tract Infection. --17:20 Igor Rosado R.N. Pneumonia [RuleOut]. --17:20 Igor Rosado R.N. ADDITIONAL SURGERIES: Bariatric Surgery. Hip Surgery. Knee Surgery). SOCIAL HISTORY Never smoker. No alcohol use. ADDITIONAL NOTES The nursing notes have been reviewed. PHYSICAL EXAM Vital Signs: 11/20/2016 17:19 BP: 113/60. HR: 95. RR: 18. O2 saturation: 97%. Temp: 98.1 F. Pain level now: 12/31. Appearance: Alert. No acute distress. ENT: Pharynx normal. CVS: Heart sounds normal. Respiratory: Moderate bilateral wheezes posteriorly and mild wheezes in the left mid-lung anteriorly. Abdomen: Nontender. Severely obese. (Very large ventral hernia). Back: (Mild to moderate L CVAT). Skin: Skin warm. Normal skin color. Extremities: Lower extremity edema. Neuro: No alteration in mental status. Mood/affect normal. No cranial nerve deficit. No motor deficit. LABS, X-RAYS, AND EKG Chest X-ray: (PROCEDURE: XR ABDOMEN 1 VIEW UPRIGHT INDICATION: VOMITING TECHNIQUE: AP upright view. COMPARISON: Compared CT abdomen and pelvis on 11/15/2016. FINDINGS: There is a large central abdominal wall hernia (previously documented). Bowel pattern is otherwise normal. No evidence of free air. There is 8 mm left proximal ureteral calculus (previously documented). Status post right total hip prosthesis. IVC filter in position. IMPRESSION: 1. Large central abdominal wall hernia (previously documented). 2. There is a 8 mm chronic left proximal ureteral calculus (previously documented). abdomen. 3. No evidence of acute process. Electronically Final signed by:Angel Sarkar MD 11/20/2016 7:53:36 PM). Laboratory Tests: UA-Culture if indicated: (SATISH: 11/20/2016 17:25) ( MsgRcvd 11/20/2016 18:22) Final results Test Result Flag Units (Reference) URINE COLOR YELLOW URINE APPEARANCE SL CLOUDY URINE GLUCOSE NEGATIVE (NEGATIVE) URINE BILIRUBIN NEGATIVE (NEGATIVE) URINE KETONE NEGATIVE (NEGATIVE) URINE SPECIFIC GRAVITY 1.020 (1.010-1.030) URINE PH 5.5 (5.0-8.0) URINE PROTEIN NEGATIVE (NEGATIVE) URINE UROBILINOGEN 0.2 EU/dL (0.2-1.0) URINE NITRITE NEGATIVE (NEGATIVE) URINE BLOOD 2+ (NEGATIVE) URINE LEUK ESTERASE POSITIVE (NEGATIVE) URINE RBC 0-1 rbc/hpf (0-1) URINE WBC 5-10 wbc/hpf (0-1) URINE EPITHELIAL CELLS 0-1 EPI/hpf (0-5) URINE BACTERIA FEW (1+) (NONE SEEN) URINE COMMENT CULTURE INDICATED 1+ AMORPHOUSURINE CULTURES ARE SET-UP BASED ON THE FOLLOWING CRITERIA:POSITIVE NITRITEPOSITIVE LEUKOCYTE ESTERASEGREATER THAN 10 WHITE BLOOD CELLSMODERATE (2+) OR GREATER BACTERIA Urine: (SATISH: 11/20/2016 17:25) ( [facility] 11/20/2016 18:23) Final results Test Result Flag Units (Reference) URINE NEGATIVE CBC w Diff: (SATISH: 11/20/2016 18:13) ( [facility] 11/20/2016 18:36) Final results Test Result Flag Units (Reference) WHITE BLOOD COUNT 13.2 # H K/uL (4.5-11.5) RED BLOOD COUNT 3.54 L M/uL (4.00-5.20) HEMOGLOBIN 9.5 L gm/dL (12.0-16.0) HEMATOCRIT 28.7 L % (36.0-46.0) MEAN CELL VOLUME 81 fL (80-100) MEAN CORPUSCULAR HGB 27 pg (26-34) MEAN CORPUSCULAR HGB CONC 33 g/dL (31-37) RED CELL DISTRIBUTION WIDTH 15.0 H % (11.6-14.8) PLATELET COUNT 282 K/uL (150-400) NEUTROPHIL % 85.7 H % (50-75) LYMPH % 11.9 L % (25-40) MONO % 1.2 L % (3-14) EOSINOPHIL % 1.1 % (0-4) BASOPHIL % 0.1 % (0-2) PT with INR: (SATISH: 11/20/2016 18:13) ( [facility] 11/20/2016 18:51) Final results Test Result Flag Units (Reference) INR 4.1 H (0.8-1.2) Low Intensity Therapy: INR 1.5-2.0 PT range 18.5-23.1Mod.Intensity Therapy: INR 2.0-3.0 PT range 23.1-31.5High Intensity Therapy: INR 2.5-3.5 PT range 27.4-35.5High Intensity Therapy 2: INR 3.0-4.0 PT range 31.5-39.3 BNP: (SATISH: 11/20/2016 18:13) ( MsgRcvd 11/20/2016 19:00) Final results Test Result Flag Units (Reference) B-TYPE NATRIURETIC PEPTIDE 76.2 pg/ml (5-100) CMP: (SATISH: 11/20/2016 18:13) ( MsgRcvd 11/20/2016 18:51) Final results Test Result Flag Units (Reference) GLUCOSE 113 H mg/dL (70-110) BUN 7 mg/dL (7-18) CREATININE 1.1 mg/dL (0.6-1.3) Estimated GFR 56.59 mL/min Estimated GFR- >60 mL/min Note: Persistent reduction over 3 months in eGFR<60 mL/min/1.73 m2 defines CKD. Patients with eGFR values>=60 mL/min/1.73 m2 may also have CKD if evidence ofpersistent proteinuria. Additional information may be foundat www.kidney.org. SODIUM 134 L mmol/L (136-145) POTASSIUM 3.1 L mmol/L (3.5-5.1) CHLORIDE 99 mmol/L (98-107) CARBON DIOXIDE 24 mmol/L (21-32) CALCIUM 7.6 L mg/dL (8.5-10.1) TOTAL PROTEIN 8.5 H g/dL (6.4-8.2) ALBUMIN 2.3 L g/dL (3.3-5.0) BILIRUBIN, TOTAL 0.3 mg/dL (0.0-1.0) ALKALINE PHOSPHATASE 110 U/L (46-116) AST (SGOT) 42 H U/L (15-37) ALT (SGPT) 27 U/L (12-78) . PROGRESS AND PROCEDURES Course of Care: Ms Martínez is quite complex, is medically unsophistocated and now has no PCP. I was able to contact Dr Mota who was able to help me understand the patient's course and how to manage her current problems. Her nausea and vomiting seems to be related to her fluconazole use. She should continue it but cannot because she cannot take her other medicines. She has an elevated INR which will get worse on new antibiotics. She is warned and will not take her coumadin for 2 days. She will have a pro time re drawn then. She has UTI which has been treated in the ED with ceftriaxone and will be treated with Suprax at home. Old ED and inpatient records reviewed. Patient has had multiple ED visits. Disposition: Discharged. Condition: stable. CLINICAL IMPRESSION Acute urinary tract infection. SUPRA THERAPUTIC INR VOMITING. INSTRUCTIONS (YOUR JOB ONE IS GET A PRIMARY DR TOMORROW. YOU TO GO NEXT DOOR TO [facility] AND TELL THEM "I WAS JUST DISCHARGED FROM THE HOSPITAL. THEY TELL ME IF I DON'T GET PRIMARY DR I WILL ." FOR UTI WE GAVE YOU CEFTRIAXONE IV AND SUPRAX YOU HAVE TOO MUCH COUMADIN IN YOUR SYSTEM. SO NO COUMADIN FOR 2 DAYS. THEN COME TO HOSPITAL FOR INR WITH RESULTS TO THE HOSPITALIST YOU MAY STOP THE FUCONAZOLE BECAUSE IT CAUSES YOU TO VOMIT BUT IT MAY MAKE YOUR FUNGUS BLOOD INFECTION COME BACK.). Prescription Medications: Suprax 400 mg: take 1 tab orally every day for 5 days. No refills. Substitution is permissible. Understanding of the discharge instructions verbalized by patient and family. Follow-up with: [facility], , , [address], [facility], [id number] Follow up. Reason for referral: GO THERE IN PERSON TOMORROW TO ESTABLISH PRIMARY CARE. (Electronically signed by Chandler Hill MD 11/21/2016 11:38)
--- NOTE | 2016-11-20 22:12 | ED NURSING NOTES ---
Clinical Report - Nurses [facility] [address] [place] [address] 11/20/2016 17:14 Patient: PATY MARTÍNEZ TRIAGE Triage time 17:Nov 20 2016. Acuity: LEVEL 3. Chief Complaint: PAINFUL URINATION, URGENCY and FREQUENCY. --17:22 gIor Rosado R.N. 17:19 11/20/16. BP: 113/60. HR: 95. RR: 18. O2 saturation: 97% on room air. Temp: 98.1 F. Pain level now: 12/31. --17:22 Igor Rosado R.N. Weight: 117.9 kg stated. Height/Length: 62 inches Per Patient. BMI: 47.6. --17:19 Igor Rosado R.N. Medications Metoprolol 50 mg PO. --17:33 Igor Rosado R.N. Fluconazole Oral. --17:34 Igor Rosado R.N. Allergies CONTRAST DYE. --17:33 Igor Rosado R.N. History Arrived by private vehicle. Historian: patient. Accompanied by family. Onset. (1 weeks ago during Pt's last admission). She has had abdominal pain. PAST MEDICAL HX: Immunizations: up-to-date. Last normal menstrual period now. SOCIAL HX: Never smoker. No alcohol use or drug use. No infectious disease exposure. ABUSE ASSESSMENT: No report of abuse. SELF HARM ASSESSMENT: A self harm assessment was performed. The patient answered "no" to the question "Have you recently felt down, depressed, or hopeless?". FALL RISK ASSESSMENT: Fall risk assessment completed. No fall risk identified. NUTRITIONAL RISK ASSESSMENT: The nutritional risk assessment revealed no deficiencies. FUNCTIONAL ASSESSMENT: Functional assessment: no impairments noted. LEARNING NEEDS ASSESSMENT: The learning needs assessment revealed no barriers. SKIN INTEGRITY ASSESSMENT: Skin integrity risk assessment completed. No skin integrity risk identified. --17:22 Igor Rosado R.N. NUTRITIONAL RISK ASSESSMENT: The nutritional risk assessment revealed no deficiencies. --17:30 Igor Rosado R.N. ( Pt has been having urinary frequency, urgency, and dysuria. Pt also states she has been feeling nauseated and light headed since taking her new Rx of Metoprolol and Fluconazole.). --17:33 Igor Rosado R.N. ( Pt was admitted to hospital last week for pneumonia. Sent home with new Rx and returns today for urinary frequency.). --17:39 Igor Rosado R.N. PROBLEMS: Back Pain. Lumbar Strain. Obesity. Bronchitis. Abscess. Fall. Sprain. DVT - Deep Venous Thrombosis. UTI - Urinary Tract Infection. --17:20 Igor Rosado R.N. Pneumonia [RuleOut]. --17:20 Igor Rosado R.N. Hernia. --21:22 Igor Rosado R.N. Renal calculus. --21:22 Igor Rosado R.N. Fungal Infection. --21:23 Igor Rosado R.N. ADDITIONAL SURGERIES: Bariatric Surgery. Hip Surgery. Knee Surgery. --17:20 Igor Rosado R.N. Assessment The patient states feels worse. --17:22 Igor Rosado R.N. Interventions ID band on patient. To treatment room. --17:22 Igor Rosado R.N. PHYSICAL ASSESSMENT To room via wheelchair. GENERAL / NEURO / PSYCH: Alert. Oriented X 4. Appears in no acute distress. HEENT: Mucous membranes are pink. RESPIRATORY: Respirations not labored. CVS: Capillary refill less than 2 seconds. GI / : Abdominal distention (ventral hernia). Abdomen soft and nontender. Bowel sounds within normal limits. Vaginal bleeding present (Pt is menstruating; tampon in place). SKIN: Skin is warm and dry. --17:31 Igor Rosado R.N. NURSING PROGRESS NOTES The plan of care for this patient has been created. Monitoring of patient in place. Patient gowned. Head of bed elevated. Reassurance given. Patient ID band checked for patient name and birthdate: patient confirmed. Catheterized urine collected with return of yellow-colored urine; sample sent to lab. Specimen labeled in the presence of the patient. Two patient identifiers checked. Call light placed in reach. Side rails up x 2. Bed placed in lowest position. Patient ready for evaluation- ED physician notified. --17:31 Igor Rosado R.N. 18:17 11/20/2016 Site #1 started via IV in the left antecubital space with an 20g angiocath, with aseptic technique and good blood return; one attempt. Blood drawn: rainbow set. Labeled in the presence of the patient and sent to the lab. Saline lock flushed with 10 mL saline. --18:17 Igor Rosado R.N. 18:17 11/20/2016 Started bag #1 1000 mL IV Fluids IV NS (Saline); at 500 mL/hr over 3 hour(s) via site #1 via IV pump. Allergies verified and confirmed 5 rights. IV patency established. IV site checked: no pain, redness, or swelling. IV flushed thoroughly pre- and post-medication administration. Completed per protocol. --18:17 Igor Rosado R.N. 18:19 11/20/16. BP: 98/55. HR: 74. RR: 18. O2 saturation: 99% on room air. --18:21 Igor Rosado R.N. Patient transported to radiology by stretcher with tech. --19:15 Igor Rosado R.N. Patient returned from radiology by stretcher with tech. (19:18 Nov 20 2016). --19:18 Igor Rosado R.N. 19:22 11/20/16. BP: 109/55. HR: 76. RR: 18. O2 saturation: 95% on room air. Pain level now: 6/10. --19:23 Igor Rosado R.N. ( Assisted Pt up to restroom and back to bed, no further needs, family at bedside.). --19:38 Igor Rosado R.N. ( Pt in room, checked VS, family at bedside, asking when Pt can go home, [facility].). --20:41 Igor Rosado R.N. 20:42 11/20/2016 IV Fluids IV NS Bag Change: bag #1 infused. Total amount infused: 1000. STARTED bag #2 (1000 mL) at 500 mL/hr via IV pump. Confirmed 5 rights. IV patency established. IV site checked: no pain, redness, or swelling. IV flushed thoroughly. --20:42 Igor Rosado R.N. 20:41 11/20/16. BP: 109/67. HR: 81. RR: 18. O2 saturation: 95% on room air. Pain level now: 10/31. --20:44 Igor Rosado R.N. ( MD at bedside talking with Pt, family at bedside.). --21:51 Igor Rosado R.N. 21:51 11/20/2016 IV Fluids IV NS Discontinued: bag #2 infused. Total amount infused: 500 mL. IV patency established. IV site checked: no pain, redness, or swelling. IV flushed thoroughly. --21:51 Igor Rosado R.N. 22:17 11/20/2016 Started 1 gm of Ceftriaxone IVPB in bag #1 50 mL; at 100 mL/hr over 30 minute(s) via site #1 via IV pump. Allergies verified and confirmed 5 rights. IV patency established. IV site checked: no pain, redness, or swelling. IV flushed thoroughly pre- and post-medication administration. Completed per protocol. --22:17 Igor Rosado R.N. 22:39 11/20/2016 Site #1 removed upon discharge. Bandage applied. --22:44 Igor Rosado R.N. 22:39 11/20/2016 Ceftriaxone IVPB Discontinued: bag #1 infused upon discharge. Total amount infused: 50 mL. IV patency established. IV site checked: no pain, redness, or swelling. IV flushed thoroughly. --22:44 Igor Rosado R.N. DISPOSITION / DISCHARGE 22:16 11/20/16. BP: 122/79. HR: 75. RR: 18. O2 saturation: 96% on room air. Temp: 97.9 F. Pain level now: 10/31. --22:16 Igor Rosado R.N. Condition at departure: stable. The goals identified in the patient's plan of care were met. No learning barriers present. Discharge instructions provided and reviewed with the patient. Reviewed medication(s) side effects, precautions, dosing and course information. Prescription(s) given to the patient (Suprax). Reviewed referral to a primary care physician ([facility] - Pt to call for appt.). Patient verbalized understanding. Written instructions provided in [place]ian. The patient was discharged home and accompanied by family. She left the Emergency Department ambulatory and via private vehicle. Patient driving. ( Pt dc'd in stable condition, ambulatory, VSS, DC paperwork in hand.). --22:43 Igor Rosado R.N. Departure time: 22:45 Nov 20 2016. ( Pt instructed to 1) get a PCP, 2) take Suprex for UTI, and 3) Stop Coumadin for the next 2 days d/t elevated INR.). --22:45 Igor Rosado R.N. Locked/Released at 11/20/2016 22:45 by Igor Rosado R.N.
--- NOTE | 2016-11-20 22:13 | ED ORDER SUMMARY ---
..... Patient: PATY MARTÍNEZ OrderSheet [facility] VisitID: [id number] [place] [address] 46y, F Registration Date/Time: 11/20/2016 ORDER SHEET Weight: 117.9 kg (stated) Allergies: CONTRAST DYE GENERAL ORDERS: CBC w Diff Urgent (17:54 11/20/2016 Mustapha WOOD) (Ack 17:56 PWeiler ER Tech1) (18:17 MCjoek R.N.) CMP Urgent (17:54 11/20/2016 Mustapha WOOD) (Ack 17:56 PWeiler ER Tech1) (18:17 MCjoek R.N.) UA-Culture if indicated Urgent (17:54 11/20/2016 Mustapha WOOD) (Ack 17:56 PWeiler ER Tech1) (17:56 PWeiler ER Tech1) Urine Urgent (17:54 11/20/2016 Mustapha WOOD) (Ack 17:56 PWeiler ER Tech1) (17:56 PWeiler ER Tech1) BNP Urgent (17:54 11/20/2016 Mustapha WOOD) (Ack 17:56 PWeiler ER Tech1) (18:17 MCook R.N.) PT with INR Urgent (17:54 11/20/2016 Mustapha WOOD) (Ack 17:56 PWeiler ER Tech1) (18:17 MCjoek R.N.) Abdomen 1V Upright Urgent (19:00 11/20/2016 Mustapha WOOD) (Ack 19:02 PWeiler ER Tech1) (19:16 MCjoek R.N.) MEDICATION ORDERS: IV FLUIDS: IV NS : initial bolus none -, then 500 mL/hr for 3h (NOW); Urgent (17:54 11/20/2016 Mustapha WOOD) (Ack 17:59 MCmiriam R.N.) (18:17 MCjoek R.N.) Ceftriaxone IV 1 gm/50mL (NOW) (22:05 11/20/2016 Mustapha WOOD) (22:17 MCmiriam R.N.) ORDER SHEET NOTES: [Electronically signed by Igor Rosado R.N. (22:45 11/20/2016)] [Electronically signed by Chandler Hill MD (11:38 11/21/2016)] [Electronically locked/signed by Igor Rosado R.N. (22:45 11/20/2016)]
--- NOTE | 2016-11-20 22:13 | ED ORDER SUMMARY ---
..... Patient: PATY MARTÍNEZ OrderSheet [facility] VisitID: [id number] [place] [address] 46y, F Registration Date/Time: 11/20/2016 ORDER SHEET Weight: 117.9 kg (stated) Allergies: CONTRAST DYE GENERAL ORDERS: CBC w Diff Urgent (17:54 11/20/2016 Mustapha WOOD) (Ack 17:56 PWeiler ER Tech1) (18:17 MCjoek R.N.) CMP Urgent (17:54 11/20/2016 Mustapha WOOD) (Ack 17:56 PWeiler ER Tech1) (18:17 MCjoek R.N.) UA-Culture if indicated Urgent (17:54 11/20/2016 Mustapha WOOD) (Ack 17:56 PWeiler ER Tech1) (17:56 PWeiler ER Tech1) Urine Urgent (17:54 11/20/2016 Mustapha WOOD) (Ack 17:56 PWeiler ER Tech1) (17:56 PWeiler ER Tech1) BNP Urgent (17:54 11/20/2016 Mustapha WOOD) (Ack 17:56 PWeiler ER Tech1) (18:17 MCook R.N.) PT with INR Urgent (17:54 11/20/2016 Mustapha WOOD) (Ack 17:56 PWeiler ER Tech1) (18:17 MCjoek R.N.) Abdomen 1V Upright Urgent (19:00 11/20/2016 Mustapha WOOD) (Ack 19:02 PWeiler ER Tech1) (19:16 MCjoek R.N.) MEDICATION ORDERS: IV FLUIDS: IV NS : initial bolus none -, then 500 mL/hr for 3h (NOW); Urgent (17:54 11/20/2016 Mustapha WOOD) (Ack 17:59 MCmiriam R.N.) (18:17 MCjoek R.N.) Ceftriaxone IV 1 gm/50mL (NOW) (22:05 11/20/2016 Mustapha WOOD) (22:17 MCmiriam R.N.) ORDER SHEET NOTES: [Electronically signed by Igor Rosado R.N. (22:45 11/20/2016)] [Electronically signed by Chandler Hill MD (11:38 11/21/2016)] [Electronically locked/signed by Igor Rosado R.N. (22:45 11/20/2016)]
--- NOTE | 2016-11-21 11:38 | ED DISCHARGE INSTRUCTIONS ---
Patient: PATY MARTÍNEZ General Instructions [facility] VisitID: [id number] [address] [place] [address] 46y, F Registration Date/Time: 11/20/2016 Acute urinary tract infection. SUPRA THERAPUTIC INR VOMITING. INSTRUCTIONS (YOUR JOB ONE IS GET A PRIMARY DR TOMORROW. YOU TO GO NEXT DOOR TO [facility] AND TELL THEM "I WAS JUST DISCHARGED FROM THE HOSPITAL. THEY TELL ME IF I DON'T GET PRIMARY DR I WILL ." FOR UTI WE GAVE YOU CEFTRIAXONE IV AND SUPRAX YOU HAVE TOO MUCH COUMADIN IN YOUR SYSTEM. SO NO COUMADIN FOR 2 DAYS. THEN COME TO HOSPITAL FOR INR WITH RESULTS TO THE HOSPITALIST YOU MAY STOP THE FUCONAZOLE BECAUSE IT CAUSES YOU TO VOMIT BUT IT MAY MAKE YOUR FUNGUS BLOOD INFECTION COME BACK.). Prescription Medications: Suprax 400 mg: take 1 tab orally every day for 5 days. No refills. Substitution is permissible. Understanding of the discharge instructions verbalized by patient and family. Follow-up with: [facility], , , [address], , [place], [id number] Follow up. Reason for referral: GO THERE IN PERSON TOMORROW TO ESTABLISH PRIMARY CARE. ADDITIONAL INFORMATION Bladder Infection,Female (Adult) A bladder infection ("cystitis" or "UTI") usually causes a constant urge to urinate and a burning when passing urine. Urine may be cloudy, smelly or dark. There may be pain in the lower abdomen. A bladder infection occurs when bacteria from the vaginal area enter the bladder opening (urethra). This can occur from sexual intercourse, wearing tight clothing, dehydration and other factors. Home Care: Drink lots of fluids (at least 6-8 glasses a day, unless you must restrict fluids for other medical reasons). This will force the medicine into your urinary system and flush the bacteria out of your body. Avoid sexual intercourse until your symptoms are gone. Avoid caffeine, alcohol and spicy foods. These can irritate the bladder. A bladder infection is treated with antibiotics. You may also be given Pyridium (generic = phenazopyridine) to reduce the burning sensation. This medicine will cause your urine to become a bright orange color. The orange urine may stain clothing. You may wear a pad or panty-liner to protect clothing. Preventing Future Infections: Always wipe from front to back after a bowel movement. Keep the genital area clean and dry. Drink plenty of fluids each day to avoid dehydration. Both sexual partners should wash before intercourse. Urinate right after intercourse to flush out the bladder. Wear cotton underwear and cotton-lined panty hose; avoid tight-fitting pants. If you are on control pills and are having frequent bladder infections, discuss with your doctor. Follow Up: Return to this facility or see your doctor if ALL symptoms are not gone after three days of treatment. Get Prompt Medical Attention if any of the following occur: Fever of 100.4F (38C) or higher, or as directed by your healthcare provider No improvement by the third day of treatment Increasing back or abdominal pain Repeated vomiting; unable to keep medicine down Weakness, dizziness or fainting Vaginal discharge Pain, redness or swelling in the labia (outer vaginal area) Cefixime Oral tablet What is this medicine? CEFIXIME (sef IX eem) is a cephalosporin antibiotic. It is used to treat certain kinds of bacterial infections. It will not work for colds, flu, or other viral infections. How should I use this medicine? Take this medicine by mouth with a glass of water. Follow the directions on the prescription label. You can take it with or without food. If it upsets your stomach, take it with food. Take your medicine at regular intervals. Do not take it more often than directed. Take all of your medicine as directed even if you think your are better. Do not skip doses or stop your medicine early. Talk to your clockmaker apprentice regarding the use of this medicine in children. While this drug may be prescribed for children as young as 6 months for selected conditions, precautions do apply. What side effects may I notice from receiving this medicine? Side effects that you should report to your doctor or health healthcare administrator as soon as possible: allergic reactions like skin rash, itching or hives, swelling of the face, lips, or tongue bloody or watery diarrhea difficulty breathing or wheezing dizziness fever pain or trouble passing urine or change in the amount of urine redness, blistering, peeling or loosening of the skin, including inside the mouth seizures unusual bleeding or bruising unusually weak or tired yellowing of the eyes or skin Side effects that usually do not require medical attention (report to your doctor or health healthcare administrator if they continue or are bothersome): diarrhea headache genital or anal irritation loss of appetite nausea, vomiting stomach pain, upset, or gas What may interact with this medicine? aspirin and aspirin-like medicines carbamazepine medicines that treat or prevent blood clots like warfarin What if I miss a dose? If you miss a dose, take it as soon as you can. If it is almost time for your next dose, take only that dose. Do not take double or extra doses. Where should I keep my medicine? Keep out of the reach of children. Store at room temperature between 20 and 25 degrees C (68 and 77 degrees F). Throw away any unused medicine after the expiration date. What should I tell my health care provider before I take this medicine? They need to know if you have any of these conditions: bleeding problems kidney disease stomach or intestine problems (especially colitis) an unusual or allergic reaction to cefixime, other cephalosporin or penicillin antibiotics, other foods, dyes or preservatives or trying to get breast-feeding What should I watch for while using this medicine? Tell your doctor or health healthcare administrator if your symptoms do not improve or if you get new symptoms. Your doctor will monitor your condition and blood work as needed. Do not treat diarrhea with over the counter products. Contact your doctor if you have diarrhea that lasts more than 2 days or if it is severe and watery. This medicine can interfere with some urine glucose and some urine ketone tests. If you use such tests, talk with your health healthcare administrator. If you are being treated for a sexually transmitted disease, avoid sexual contact until you have finished your treatment. Having sex can infect your sexual partner. You have been given the following additional information: Bladder Infection, Female (Adult) Cefixime Oral tablet (Electronically signed by Chandler Hill MD 11/21/2016 11:38)
--- NOTE | 2016-11-21 11:38 | ED DISCHARGE INSTRUCTIONS ---
Patient: PATY MARTÍNEZ General Instructions [facility] VisitID: [id number] [address] [place] [address] 46y, F Registration Date/Time: 11/20/2016 Acute urinary tract infection. SUPRA THERAPUTIC INR VOMITING. INSTRUCTIONS (YOUR JOB ONE IS GET A PRIMARY DR TOMORROW. YOU TO GO NEXT DOOR TO [facility] AND TELL THEM "I WAS JUST DISCHARGED FROM THE HOSPITAL. THEY TELL ME IF I DON'T GET PRIMARY DR I WILL ." FOR UTI WE GAVE YOU CEFTRIAXONE IV AND SUPRAX YOU HAVE TOO MUCH COUMADIN IN YOUR SYSTEM. SO NO COUMADIN FOR 2 DAYS. THEN COME TO HOSPITAL FOR INR WITH RESULTS TO THE HOSPITALIST YOU MAY STOP THE FUCONAZOLE BECAUSE IT CAUSES YOU TO VOMIT BUT IT MAY MAKE YOUR FUNGUS BLOOD INFECTION COME BACK.). Prescription Medications: Suprax 400 mg: take 1 tab orally every day for 5 days. No refills. Substitution is permissible. Understanding of the discharge instructions verbalized by patient and family. Follow-up with: [facility], , , [address], , [place], [id number] Follow up. Reason for referral: GO THERE IN PERSON TOMORROW TO ESTABLISH PRIMARY CARE. ADDITIONAL INFORMATION Bladder Infection,Female (Adult) A bladder infection ("cystitis" or "UTI") usually causes a constant urge to urinate and a burning when passing urine. Urine may be cloudy, smelly or dark. There may be pain in the lower abdomen. A bladder infection occurs when bacteria from the vaginal area enter the bladder opening (urethra). This can occur from sexual intercourse, wearing tight clothing, dehydration and other factors. Home Care: Drink lots of fluids (at least 6-8 glasses a day, unless you must restrict fluids for other medical reasons). This will force the medicine into your urinary system and flush the bacteria out of your body. Avoid sexual intercourse until your symptoms are gone. Avoid caffeine, alcohol and spicy foods. These can irritate the bladder. A bladder infection is treated with antibiotics. You may also be given Pyridium (generic = phenazopyridine) to reduce the burning sensation. This medicine will cause your urine to become a bright orange color. The orange urine may stain clothing. You may wear a pad or panty-liner to protect clothing. Preventing Future Infections: Always wipe from front to back after a bowel movement. Keep the genital area clean and dry. Drink plenty of fluids each day to avoid dehydration. Both sexual partners should wash before intercourse. Urinate right after intercourse to flush out the bladder. Wear cotton underwear and cotton-lined panty hose; avoid tight-fitting pants. If you are on control pills and are having frequent bladder infections, discuss with your doctor. Follow Up: Return to this facility or see your doctor if ALL symptoms are not gone after three days of treatment. Get Prompt Medical Attention if any of the following occur: Fever of 100.4F (38C) or higher, or as directed by your healthcare provider No improvement by the third day of treatment Increasing back or abdominal pain Repeated vomiting; unable to keep medicine down Weakness, dizziness or fainting Vaginal discharge Pain, redness or swelling in the labia (outer vaginal area) Cefixime Oral tablet What is this medicine? CEFIXIME (sef IX eem) is a cephalosporin antibiotic. It is used to treat certain kinds of bacterial infections. It will not work for colds, flu, or other viral infections. How should I use this medicine? Take this medicine by mouth with a glass of water. Follow the directions on the prescription label. You can take it with or without food. If it upsets your stomach, take it with food. Take your medicine at regular intervals. Do not take it more often than directed. Take all of your medicine as directed even if you think your are better. Do not skip doses or stop your medicine early. Talk to your vp platforms regarding the use of this medicine in children. While this drug may be prescribed for children as young as 6 months for selected conditions, precautions do apply. What side effects may I notice from receiving this medicine? Side effects that you should report to your doctor or health care transitions nurse as soon as possible: allergic reactions like skin rash, itching or hives, swelling of the face, lips, or tongue bloody or watery diarrhea difficulty breathing or wheezing dizziness fever pain or trouble passing urine or change in the amount of urine redness, blistering, peeling or loosening of the skin, including inside the mouth seizures unusual bleeding or bruising unusually weak or tired yellowing of the eyes or skin Side effects that usually do not require medical attention (report to your doctor or health care transitions nurse if they continue or are bothersome): diarrhea headache genital or anal irritation loss of appetite nausea, vomiting stomach pain, upset, or gas What may interact with this medicine? aspirin and aspirin-like medicines carbamazepine medicines that treat or prevent blood clots like warfarin What if I miss a dose? If you miss a dose, take it as soon as you can. If it is almost time for your next dose, take only that dose. Do not take double or extra doses. Where should I keep my medicine? Keep out of the reach of children. Store at room temperature between 20 and 25 degrees C (68 and 77 degrees F). Throw away any unused medicine after the expiration date. What should I tell my health care provider before I take this medicine? They need to know if you have any of these conditions: bleeding problems kidney disease stomach or intestine problems (especially colitis) an unusual or allergic reaction to cefixime, other cephalosporin or penicillin antibiotics, other foods, dyes or preservatives or trying to get breast-feeding What should I watch for while using this medicine? Tell your doctor or health care transitions nurse if your symptoms do not improve or if you get new symptoms. Your doctor will monitor your condition and blood work as needed. Do not treat diarrhea with over the counter products. Contact your doctor if you have diarrhea that lasts more than 2 days or if it is severe and watery. This medicine can interfere with some urine glucose and some urine ketone tests. If you use such tests, talk with your health care transitions nurse. If you are being treated for a sexually transmitted disease, avoid sexual contact until you have finished your treatment. Having sex can infect your sexual partner. You have been given the following additional information: Bladder Infection, Female (Adult) Cefixime Oral tablet (Electronically signed by Chandler Hill MD 11/21/2016 11:38)
--- NOTE | 2016-11-21 11:38 | ED MAR SUMMARY ---
..... Medication Administration Record [facility] [address] [place] [address] Patient: PATY MARTÍNEZ Visit ID: [id number] 46y, F Weight: 117.9 kg Height/Length: 62 in BMI: 47.6 ALLERGIES: CONTRAST DYE Start 18:17 11/20/2016 Igor Rosado R.N., Stop 21:51 11/20/2016 Igor Rosado R.N. Medication Administered: IV NS (SALINE), Dose: IV Fluids over 3 hour(s), Rate: 500 mL/hr, Dispensed: 1000 mL bag, Site: #1 left AC. Medication Ordered: IV NS : initial bolus none -, then 500 mL/hr for 3h (NOW); Urgent. Start 22:17 11/20/2016 Igor Rosado R.N., Stop 22:39 11/20/2016 Igor Rosado R.N. Medication Administered: CEFTRIAXONE [IVPB], Dose: 1 gm IVPB over 30 minute(s), Rate: 100 mL/hr, Dispensed: 50 mL bag, Site: #1 left AC. Medication Ordered: Ceftriaxone IV 1 gm/50mL (NOW).
--- NOTE | 2016-11-21 11:38 | ED MAR SUMMARY ---
..... Medication Administration Record [facility] [address] [place] [address] Patient: PATY MARTÍNEZ Visit ID: [id number] 46y, F Weight: 117.9 kg Height/Length: 62 in BMI: 47.6 ALLERGIES: CONTRAST DYE Start 18:17 11/20/2016 Igor Rosado R.N., Stop 21:51 11/20/2016 Igor Rosado R.N. Medication Administered: IV NS (SALINE), Dose: IV Fluids over 3 hour(s), Rate: 500 mL/hr, Dispensed: 1000 mL bag, Site: #1 left AC. Medication Ordered: IV NS : initial bolus none -, then 500 mL/hr for 3h (NOW); Urgent. Start 22:17 11/20/2016 Igor Rosado R.N., Stop 22:39 11/20/2016 Igor Rosado R.N. Medication Administered: CEFTRIAXONE [IVPB], Dose: 1 gm IVPB over 30 minute(s), Rate: 100 mL/hr, Dispensed: 50 mL bag, Site: #1 left AC. Medication Ordered: Ceftriaxone IV 1 gm/50mL (NOW).
--- NOTE | 2016-11-21 11:38 | ED MED RECONCILIATION SUMMARY ---
Patient: PATY MARTÍNEZ Medication Reconciliation Report [facility] VisitID: [id number] [address] [place] [address] 46y, F Registration Date/Time: 11/20/2016 Weight: 117.9 kg Height/Length: 62 in. BMI: 47.6 ALLERGIES: CONTRAST DYE The patient's Home Medications are listed below: THE FOLLOWING MEDICATIONS NEED TO BE RECONCILED: Fluconazole Oral Metoprolol 50 mg PO The source(s) of the original Home Medication information: Not obtained. The following Medications were given to the patient in the Emergency Department: IV NS IV Fluids bolus 0, then 500 mL/hr, administered: 11/20/2016 6:17:00 PM Ceftriaxone [IVPB] IVPB bolus 0, then 1 gm 100 mL/hr, administered: 11/20/2016 10:17:00 PM The following Medications were prescribed to the patient: Suprax 400 mg: take 1 tab orally every day for 5 days. No refills. Substitution is permissible. -- Chandler Hill MD
--- NOTE | 2016-11-21 11:38 | ED MED RECONCILIATION SUMMARY ---
Patient: PATY MARTÍNEZ Medication Reconciliation Report [facility] VisitID: [id number] [address] [place] [address] 46y, F Registration Date/Time: 11/20/2016 Weight: 117.9 kg Height/Length: 62 in. BMI: 47.6 ALLERGIES: CONTRAST DYE The patient's Home Medications are listed below: THE FOLLOWING MEDICATIONS NEED TO BE RECONCILED: Fluconazole Oral Metoprolol 50 mg PO The source(s) of the original Home Medication information: Not obtained. The following Medications were given to the patient in the Emergency Department: IV NS IV Fluids bolus 0, then 500 mL/hr, administered: 11/20/2016 6:17:00 PM Ceftriaxone [IVPB] IVPB bolus 0, then 1 gm 100 mL/hr, administered: 11/20/2016 10:17:00 PM The following Medications were prescribed to the patient: Suprax 400 mg: take 1 tab orally every day for 5 days. No refills. Substitution is permissible. -- Chandler Hill MD
== END 2016-11-20 22:42 ==
LOC: ED SRH 17:13
DX: N39.0 Urinary tract infection, site not specified (principal); R79.1 Abnormal coagulation profile; R11.10 Vomiting, unspecified; Z86.718 Personal history of other venous thrombosis and embolism
CPT/HCPCS: 81460; 90004; 90100; 90469; 91320; 93070; 94060; 95059

== ENCOUNTER → 2016-11-22 | Outpatient (CLI) | payer OTHER | LOC: LAB SRH 18:25 | DX: J18.9 Pneumonia, unspecified organism (principal); I48.91 Unspecified atrial fibrillation; B49 Unspecified mycosis | CPT/HCPCS: 90074; 94060 ==